=== PATIENT | female | born 1955 | race Caucasian/White ===

== ENCOUNTER 2018-08-04 02:07 | Outpatient (CLI) | payer BC, SELFPAY ==
[2018-08-04 07:51] LABS: Abs Immature Grans 0.02 k/cumm (0.0-0.09); Absolute Basophil Count 0.02 k/cumm (0.0-0.2); Absolute Eosinophil Count 0.12 k/cumm (0.0-0.7); Absolute Lymphocyte Count 2.13 k/cumm (1.2-3.4); Absolute Monocyte Count 0.47 k/cumm (0.11-0.7); Absolute Neutrophil Count 4.28 k/cumm (1.2-6.7); Basophils % 0.3; Eosinophils % 1.7; HCT 41.2 % (36.0-46.0); HGB 13.5 g/dL (12.0-15.5); Immature Grans % 0.3; Lymphocytes % 30.3; Mean Corp. HGB Concentration 32.8 g/dL (32.0-36.0); Mean Corpuscular Hemoglobin 29.1 pg (27.0-33.0); Mean Corpuscular Volume 88.8 fL (80-95); Mean Platelet Volume 10.1 fL (8.0-11.0); Monocytes % 6.7; Neutrophils % 60.7; Platelet Count 258 x1000/uL (130-400); RBC 4.64 m/cumm (4.00-5.20); RBC Distribution Width 12.9 % (11.7-14.6); White Blood Cell Count 7.04 k/cumm (4.4-10.8)
[2018-08-04 07:57] LABS: Bilirubin Negative (Negative); Blood Negative (Negative); Clarity Sl Cloudy; Glucose Negative (Negative); Ketones Negative (Negative); Leukocyte Esterase Moderate (Negative); Nitrite Negative (Negative); Urobilinogen 0.2 EU/dL (Up TO 0.2)
[2018-08-04 08:18] LABS: Bacteria Moderate HPF (Negative); C & S Indicated? No/Sq. Contamination; Epithelial Cells Many HPF (Negative); Mucus Moderate (Negative); WBC >50 HPF (0-5)
[2018-08-04 09:53] LABS: Hemoglobin A1C 5.9 % (4.5-6.2)
[2018-08-04 10:19] LABS: ALT 28 U/L (12-78); AST 19 U/L (15-37); Albumin 3.3 g/dL (3.4-5.0); Alkaline Phosphatase 93 U/L (46-116); Anion Gap 8.6 mmol/L (3-11); BUN 16 mg/dL (7-18); Bilirubin, Total 0.4 mg/dL (0.2-1.0); CO2 28.4 mmol/L (21.0-32.0); CREATININE 0.86 mg/dL (0.55-1.02); Calcium 9.3 mg/dL (8.5-10.1); Chloride 104 mmol/L (98-107); Cholesterol 214 mg/dL (50-200); Glucose 118 mg/dL (70-100); HDL Cholesterol 45 mg/dL (40-60); LDL CHOLESTEROL 153 mg/dL (<100); Potassium 4.3 mmol/L (3.5-5.1); Sodium 141 mmol/L (136-145); Total Protein 6.8 g/dL (6.4-8.2); Triglyceride 110 mg/dL (30-150)
== END 2018-08-04 02:27 ==
PROVIDERS: PCP Family Medicine; Visit Provider Family Medicine
DX: N39.41 Urge incontinence (principal); Z00.00 Encounter for general adult medical examination without abnormal findings; E78.5 Hyperlipidemia, unspecified; R73.9 Hyperglycemia, unspecified; Z83.3 Family history of diabetes mellitus
CPT/HCPCS: 36415; 80053; 80061; 83721; 81003; 81015; 83036; 85025

== ENCOUNTER 2018-08-11 00:25 | Outpatient (CLI) | payer BC, SELFPAY ==
--- NOTE | 2018-08-11 16:14 | DI.MAMMO_ITS ---
SYMPTOM/DIAGNOSIS: SCREENING, Z12.31 MAMMOGRAMS: Mammograms were interpreted according to the usual protocol including computer analysis with CAD system, tomosynthesis and C view imaging. Comparison with prior examinations. Breast density A. No masses or microcalcifications are seen. There is nothing to suggest malignancy. IMPRESSION: Negative mammogram. Routine screening is recommended. Category I. MQSA ASSESSMENT OF FINDINGS: Negative. Category 1. Patient will receive a letter notifying them of these results. BI-RAD category A. The breasts are almost entirely fatty.
== END 2018-08-11 00:45 ==
PROVIDERS: PCP Family Medicine; Visit Provider Family Medicine
DX: Z12.31 Encounter for screening mammogram for malignant neoplasm of breast (principal)
CPT/HCPCS: 77063; 77067

== ENCOUNTER 2019-02-25 01:14 | Outpatient (CLI) | payer OTHER, SELFPAY ==
[2019-02-25 08:16] LABS: Anion Gap 11.8 mmol/L (3-11); BUN 21 mg/dL (7-18); CO2 26.2 mmol/L (21.0-32.0); Calcium 8.9 mg/dL (8.5-10.1); Chloride 107 mmol/L (98-107); Cholesterol 210 mg/dL (50-200); Glucose 113 mg/dL (70-100); HDL Cholesterol 44 mg/dL (40-60); LDL CHOLESTEROL 145 mg/dL (<100); Potassium 4.1 mmol/L (3.5-5.1); Sodium 145 mmol/L (136-145); Triglyceride 94 mg/dL (30-150)
== END 2019-02-25 01:34 ==
PROVIDERS: PCP Family Medicine; Visit Provider Family Medicine
DX: R63.8 Other symptoms and signs concerning food and fluid intake (principal); E78.5 Hyperlipidemia, unspecified; R73.01 Impaired fasting glucose
CPT/HCPCS: 36415; 80048; 80061; 83721; 83036

== ENCOUNTER 2019-05-17 10:58 | Outpatient (CLI) | payer OTHER, SELFPAY ==
[2019-05-19 10:11] LABS: HBs Antibody, Quant >1000.0 mIU/mL; Hepatitis B Surface Ab Positive
== END 2019-05-17 11:18 ==
PROVIDERS: PCP Family Medicine; Visit Provider Nurse Practitioner Family
DX: Z01.84 Encounter for antibody response examination (principal); Z02.1 Encounter for pre-employment examination
CPT/HCPCS: 36415; 86706

== ENCOUNTER 2020-04-03 02:44 | Outpatient (CLI) | payer OTHER, SELFPAY ==
[2020-04-03 07:42] LABS: Hemoglobin A1C 6.1 % (3.8-5.6)
[2020-04-03 08:18] LABS: ALT 31 U/L (14-59); AST 19 U/L (15-37); Albumin 3.7 g/dL (3.4-5.0); Alkaline Phosphatase 88 U/L (46-116); Anion Gap 11.1 mmol/L (3-11); BUN 21 mg/dL (7-18); Bilirubin, Total 0.3 mg/dL (0.2-1.0); CO2 24.9 mmol/L (21.0-32.0); CREATININE 0.92 mg/dL (0.55-1.02); Calcium 9.4 mg/dL (8.5-10.1); Calculated LDL 148 mg/dL (<100); Chloride 105 mmol/L (98-107); Cholesterol 216 mg/dL (<200); Glucose 129 mg/dL (74-106); HDL Cholesterol 48 mg/dL (40-60); Potassium 4.3 mmol/L (3.5-5.1); Sodium 141 mmol/L (136-145); Total Protein 7.3 g/dL (6.4-8.2); Triglyceride 101 mg/dL (<150)
== END 2020-04-03 03:04 ==
PROVIDERS: PCP Family Medicine; Visit Provider Family Medicine
DX: I10 Essential (primary) hypertension (principal); E78.00 Pure hypercholesterolemia, unspecified; R73.01 Impaired fasting glucose
CPT/HCPCS: 36415; 80053; 80061; 83036

== ENCOUNTER 2020-08-01 09:14 | Outpatient (CLI) | payer OTHER, SELFPAY ==
--- NOTE | 2020-08-01 13:15 | DI.RAD_ITS ---
EXAM: XR KNEE LT 4V AP,LAT,ALTHEA,PAT CLINICAL HISTORY: fall, knee and reynaga pain TECHNIQUE: COMPARISON: CR XR TIB/FIB LT from 08/01/2020 FINDINGS: Four views of the knee and two views of the leg were obtained. There is plate and screw fixation of the distal fibula and screw and pin fixation of the medial malleolus. There are degenerative changes of all 3 joints of the knee with mild narrowing of cartilaginous joint spaces of the medial and lateral tibiofemoral joints and mild marginal osteophyte formation at multi ple sites. There is no evidence of acute fracture or dislocation of the knee or leg. IMPRESSION: RADIATION DOSE DELIVERED: Total DLP
--- NOTE | 2020-08-01 13:15 | DI.RAD_ITS ---
EXAM: XR WRIST RT COMPL NAVICULAR CLINICAL HISTORY: fall, wrist pain, pain also noted at snuffbox TECHNIQUE: COMPARISON: No exams were available for comparison FINDINGS: Five views were obtained. There is no evidence of an acute fracture or dislocation. IMPRESSION: RADIATION DOSE DELIVERED: Total DLP
== END 2020-08-01 09:34 ==
PROVIDERS: PCP Family Medicine; Visit Provider Physician Assistant
DX: M25.531 Pain in right wrist (principal); M17.12 Unilateral primary osteoarthritis, left knee; M79.662 Pain in left lower leg
CPT/HCPCS: 73110; 73564; 73590

== ENCOUNTER 2020-09-04 10:29 | Outpatient (REF) | payer OTHER, SELFPAY ==
[2020-09-04 13:07] LABS: ALT 32 U/L (14-59); Calculated LDL 135 mg/dL (<100); Cholesterol 219 mg/dL (<200); HDL Cholesterol 48 mg/dL (40-60); Triglyceride 180 mg/dL (<150)
[2020-09-04 13:15] LABS: Hemoglobin A1C 6.4 % (<5.7)
== END 2020-09-04 10:49 ==
LOC: LBN 10:29
PROVIDERS: PCP Family Medicine; Visit Provider Family Medicine
DX: E78.5 Hyperlipidemia, unspecified (principal); R73.9 Hyperglycemia, unspecified; Z83.3 Family history of diabetes mellitus
CPT/HCPCS: 80061; 83036; 84460

== ENCOUNTER 2020-10-08 01:56 | Outpatient (CLI) | payer OTHER, SELFPAY ==
--- NOTE | 2020-10-08 06:45 | DI.MAMMO_ITS ---
EXAM: MG MAMMO SCREENING CLINICAL HISTORY: screening,Z12.31. TECHNIQUE: Bilateral full field digital CC and MLO mammographic images were obtained with 3D tomosyn thesis and utilizing computer aided detection (CAD). COMPARISON: Prior mammograms dating back to 2011, the most recent being August 2018. FINDINGS: There are no CAD designations. There are no spiculated masses nor malignant appearing microcalcification groups in the left breast.. The right breast there is a noncalcified nodule located 5 centimetres in from the nipple approximat katherine 12 o'clock or 6 o'clock position. Possibly a lymph node 5 more evident on prior studies. Recomm end ultrasound. There are no malignant-appearing microcalcification groups in this region or elsewhe re in either breast. There is no significant architectural distortion nor skin thickening-retraction . IMPRESSION: No radiographic evidence of malignancy in the left breast.. There is a 5 millimeter by 4 millimeter noncalcified nodule the central right breast located 5 centim etres in from the nipple the CC view. Breast ultrasound is recommended BI-RADS Category 0 - Assessment Incomplete: Need additional imaging evaluation Breast Density - Category A - Almost entirely fatty Breast density Category C or D implies that the patient has dense breast tissue. Dense breast tissue can make it harder to find cancer on a mammogram. Dense breast tissue is also associated with an incr eased risk of breast cancer. This information about the result of the mammogram report was provided to the patient to raise their awareness. Use this report when you speak with the patient about their risks for breast cancer, which includes their family history. At that time, you may recommend additional screening tests (Ultrasoun d or MRI) as these tests may add significant information. A negative radiographic report should not delay biopsy if a dominant or clinically suspicious mass is present. Up to ten percent of cancers are not identified on mammography. A negative report may reinforce clinical impression. Adenosis and dense breasts may obscure an underlying neoplasm. False positive reports average 6 to 10%. Patient will receive a letter notifying them of these results.
== END 2020-10-08 02:16 ==
PROVIDERS: PCP Family Medicine; Visit Provider Family Medicine
DX: Z12.31 Encounter for screening mammogram for malignant neoplasm of breast (principal); R92.8 Other abnormal and inconclusive findings on diagnostic imaging of breast
CPT/HCPCS: 77063; 77067

== ENCOUNTER 2020-10-08 04:03 | Outpatient (CLI) | payer OTHER, SELFPAY ==
[2020-10-08 08:00] LABS: HCT 41.2 % (36.0-46.0); HGB 13.3 g/dL (11.2-15.7); MCH 28.3 pg (27.0-33.0); MCHC 32.3 % (32.0-36.0); MCV 87.7 fL (80-95); MPV 10.4 fL (8.0-11.0); Platelet Count 237 10^3/uL (130-400); RDW 12.2 % (11.7-14.6); RDW-SD 39.5 fL; WBC 6.88 10^3/uL (4.4-10.8)
[2020-10-08 08:49] LABS: Anion Gap 6.6 mmol/L (3-11); BUN 25 mg/dL (7-18); CO2 29.4 mmol/L (21.0-32.0); CREATININE 1.11 mg/dL (0.55-1.02); Calcium 9.6 mg/dL (8.5-10.1); Chloride 105 mmol/L (98-107); Estimated GFR 49.18 (mL/min/1.73m2); Glucose 130 mg/dL (74-106); Potassium 3.9 mmol/L (3.5-5.1); Sodium 141 mmol/L (136-145)
== END 2020-10-08 04:23 ==
PROVIDERS: PCP Family Medicine; Visit Provider Family Medicine
DX: I10 Essential (primary) hypertension (principal)
CPT/HCPCS: 36415; 80048; 85027

== ENCOUNTER 2020-10-12 04:24 | Outpatient (CLI) | payer OTHER, SELFPAY ==
--- NOTE | 2020-10-12 | DI.US_ITS ---
EXAM: US BREAST RT LIMITED CLINICAL HISTORY: F/U MAMMO,CENTRAL RT BREAST NODULE TECHNIQUE: Ultrasound right breast performed using standard protocol. COMPARISON: Comparison with prior mammograms. FINDINGS: No solid or cystic masses, hypoechoic foci, areas of abnormal shadowing, or areas of skin thickening. The nodular area of concern on the mammogram from 10/08/2020, has a similar appearance compared to the mammogram from 08/11/2018 and prior mammograms. IMPRESSION: No sonographically suspicious finding. A six-month follow-up right mammogram is recommended for re-evaluation. Findings were discussed with the patient on the date of the examination. BI-RADS Category 3 - 6 month - Probably Benign Finding: Recommend follow-up mammography in 6 months DATA REPOSITORY:
== END 2020-10-12 04:44 ==
PROVIDERS: PCP Family Medicine; Visit Provider Family Medicine
DX: N63.10 Unspecified lump in the right breast, unspecified quadrant (principal)
CPT/HCPCS: 76642

== ENCOUNTER 2020-12-07 03:22 | Outpatient (CLI) | payer OTHER, SELFPAY ==
[2020-12-07 07:57] LABS: Hemoglobin A1C 6.1 % (<5.7)
[2020-12-07 08:18] LABS: Anion Gap 9.4 mmol/L (3-11); BUN 23 mg/dL (7-18); CO2 30.6 mmol/L (21.0-32.0); CREATININE 0.9 mg/dL (0.55-1.02); Calcium 9.4 mg/dL (8.5-10.1); Chloride 105 mmol/L (98-107); Glucose 114 mg/dL (74-106); Sodium 145 mmol/L (136-145)
[2020-12-07 08:25] LABS: Calculated LDL 68 mg/dL (<100); Cholesterol 138 mg/dL (<200); HDL Cholesterol 48 mg/dL (40-60); Triglyceride 114 mg/dL (<150)
== END 2020-12-07 03:23 | disposition home or self-care (01) ==
LOC: LBO 03:23
PROVIDERS: PCP Family Medicine
DX: I10 Essential (primary) hypertension (principal); R73.9 Hyperglycemia, unspecified
CPT/HCPCS: 36415; 80048; 80061; 83036

== ENCOUNTER 2021-03-28 03:54 | Outpatient (CLI) | payer OTHER, SELFPAY ==
[2021-03-28 07:50] LABS: Hemoglobin A1C 6.1 % (<5.7)
== END 2021-03-28 03:55 | disposition home or self-care (01) ==
LOC: LBO 03:54
PROVIDERS: PCP Nurse Practitioner Family; Visit Provider Nurse Practitioner Family
DX: E11.69 Type 2 diabetes mellitus with other specified complication (principal); E66.9 Obesity, unspecified
CPT/HCPCS: 36415; 83036

== ENCOUNTER 2021-05-28 03:18 | Outpatient (CLI) | payer OTHER, SELFPAY ==
--- NOTE | 2021-05-28 14:52 | DI.MAMMO_ITS ---
Exam(s) MAMMO DIAGNOSTIC UNI EXAM: MAMMO DIAGNOSTIC UNI CLINICAL HISTORY: ABNL RT BREAST, F/U TO ABNL, R92.8. TECHNIQUE: Craniocaudal and mediolateral oblique Full Field Digital Mammography views of the right breast with Computer Aided Diagnosis followed by Tomosynthesis. COMPARISON: 2011 through 08 October 2020 FINDINGS: Mammography/Tomosynthesis: Masses/Architectural Distortion: Stable tiny nodule CC view central right breast. Microcalcifictions: No suspicious pleomorphic-type are seen. Skin Thickening/Nipple Retraction: None. IMPRESSION: 1. No evidence of malignancy is noted. 2. Unless there is more urgent need, follow-up screening mammography is recommended, as per [place] [employer] guidelines. BI-RADS Category 2 - Benign Findings Breast Density - Category A - Almost entirely fatty A negative radiographic report should not delay biopsy if a dominant or clinically suspicious mass is present. Up to ten percent of cancers are not identified on mammography. A negative report may reinforce clinical impression. Adenosis and dense breasts may obscure an underlying neoplasm. False positive reports average 6 to 10%. Patient will receive a letter notifying them of these results.
== END 2021-05-28 03:38 ==
PROVIDERS: PCP Nurse Practitioner Family; Visit Provider Family Medicine
DX: R92.8 Other abnormal and inconclusive findings on diagnostic imaging of breast (principal); Z09 Encounter for follow-up examination after completed treatment for conditions other than malignant neoplasm
CPT/HCPCS: 77061; 77065; G0279

== ENCOUNTER 2021-08-13 04:16 | Outpatient (CLI) | payer OTHER, SELFPAY ==
[2021-08-14 01:50] LABS: Anion Gap 6.9 mmol/L (3-11); BUN 19 mg/dL (7-18); CO2 32.1 mmol/L (21.0-32.0); Calcium 9.1 mg/dL (8.5-10.1); Chloride 107 mmol/L (98-107); Estimated GFR 55.47 (mL/min/1.73m2); Glucose 117 mg/dL (74-106); Potassium 3.8 mmol/L (3.5-5.1); Sodium 146 mmol/L (136-145)
== END 2021-08-13 04:17 | disposition home or self-care (01) ==
LOC: LBO 04:16
PROVIDERS: PCP Nurse Practitioner Family; Visit Provider Family Medicine
DX: I10 Essential (primary) hypertension (principal)
CPT/HCPCS: 36415; 80048

== ENCOUNTER 2021-10-30 14:02 | Outpatient (CLI) | payer OTHER, SELFPAY ==
--- NOTE | 2021-10-30 13:30 | DI.RAD_ITS ---
Exam(s) XR SHOULDER LT COMPLETE 2+V EXAM: XR SHOULDER LT COMPLETE 2+V CLINICAL HISTORY: left shoulder pain. TECHNIQUE: 2D digital imaging was performed. COMPARISON: No exams were available for comparison FINDINGS: No evidence of fracture or dislocation. There are advanced osteoarthritic degenerative changes inclu ding joint space narrowing and casarez osteophyte on the inferior articular surface of the humeral head . Subacromial space is not significantly diminished. No osseous lesions. Bone density normal. IMPRESSION: Lanced osteoarthritic degenerative changes of the glenohumeral joint DATA REPOSITORY: RADIATION DOSE DELIVERED:
== END 2021-10-30 14:03 | disposition home or self-care (01) ==
LOC: DIORS 14:02
PROVIDERS: PCP Nurse Practitioner Family; Referring Provider Nurse Practitioner Family; Visit Provider Student in an Organized Health Care Education/Training Program
DX: M25.512 Pain in left shoulder (principal); M19.012 Primary osteoarthritis, left shoulder
CPT/HCPCS: 73030

== ENCOUNTER 2021-12-05 03:31 | Outpatient (CLI) | payer OTHER, SELFPAY ==
--- NOTE | 2021-12-05 07:30 | DI.RAD_ITS ---
Exam(s) RF JOINT INJECTION FLUORO GUID EXAM: RF JOINT INJECTION FLUORO GUID CLINICAL HISTORY: L SHOULDER PAIN,FLUORO ASSISTED INJECTION,M19.012,PRIMARY OA TECHNIQUE: 2D and realtime digital imaging was performed. Fluoroscopy was provided for Dr. Beckham for guidance with performing shoulder injection. Single hard copy image. COMPARISON: CR XR SHOULDER LT COMPLETE 2+V from 10/30/2021 FINDINGS: A single hard copy image shows injection of contrast at the shoulder as well as severe degenerative c hanges of the glenohumeral joint. Please see procedure note for details. Fluoro time 11 seconds RADIATION DOSE DELIVERED: baldo Marcelino=0.7 mGy
[2021-12-05] MEDS: Bupivacaine 0.5% Pres-Free 10 ML VIAL 5 ML IJ (13:36)
[2021-12-05] MEDS: Omnipaque 300 MG/ML 10 ML BTL 3 ML IJ (13:37)
[2021-12-05] MEDS: methylPREDNISolone ACETATE 40 MG/ML VIAL IM (13:37)
--- NOTE | 2021-12-05 13:38 | W.PROCNOTE ---
Date of service: 12/05/21 Time of Service: 13:20 Procedure Note Date of procedure: 12/05/21 Procedure: Left Shoulder Injection Surgeon/Proceduralist/Physician: Chuckie Hernandez Procedure Diagnosis: Left Glenohumeral Arthritis Procedure Indications: Maria has had persistent pain of the LEFT shoulder. Noninvasive measures have been tried. To serve as both diagnostic and therapeutic, an injection under fluoroscopy was recommended. I had discussed the risks of the procedure and the patient elected to proceed. Procedure Description: Maria was greeted in the flouroscopy room. The correct side was identified and the consent was reviewed with the patient and signed. The patient was then placed in the supine position on the fluoroscopy table. The LEFT shoulder was then prepped with Chloraprep. The anterior injection starting point was identiifed by bony landmarks and fluoroscopy. The skin and soft tissue in the tract of the injection was anesthetized with 1% Lidocaine. A spinal needle was then inserted deep into the shoulder joint at the level of the recess between the glenoid and superior humeral head. A small amount of Omnipaque solution was injected to confirm intraarticular placement. Once confirmed, the shoulder was injected with 4cc of 0.5% Bupivicaine and 80mg of Depo-Medrol. A bandaid was placed on the injection site. The patient tolerated the procedure well and noted improvement in pre-injection pain.
== END 2021-12-05 03:51 ==
PROVIDERS: PCP Nurse Practitioner Family; Visit Provider Student in an Organized Health Care Education/Training Program
DX: M19.012 Primary osteoarthritis, left shoulder (principal)
CPT/HCPCS: 77002; J1030

== ENCOUNTER → 2022-03-06 01:19 | Outpatient (CLI) | payer OTHER, SELFPAY ==
--- NOTE | 2022-03-06 13:58 | W.PROCNOTE ---
Date of service: 03/06/22 Time of Service: 13:55 Procedure Note Date of procedure: 03/06/22 Procedure: Left Shoulder Injection Surgeon/Proceduralist/Physician: Chuckie Hernandez Procedure Diagnosis: Left Shoulder Injection Procedure Indications: Maria has had persistent pain of the LEFT shoulder. Noninvasive measures have been tried. To serve as both diagnostic and therapeutic, an injection under fluoroscopy was recommended. She had previous success with injection and thus a repeat was recommended. I had discussed the risks of the procedure and the patient elected to proceed. Procedure Description: Maria was greeted in the flouroscopy room. The correct side was identified and the consent was reviewed with the patient and signed. The patient was then placed in the supine position on the fluoroscopy table. The LEFT shoulder was then prepped with Chloraprep. The anterior injection starting point was identiifed by bony landmarks and fluoroscopy. The skin and soft tissue in the tract of the injection was anesthetized with 1% Lidocaine. A spinal needle was then inserted deep into the shoulder joint at the level of the recess between the glenoid and superior humeral head. A small amount of Omnipaque solution was injected to confirm intraarticular placement. Once confirmed, the shoulder was injected with 5cc of 0.5% Bupivicaine and 80mg of Depo-Medrol. A bandaid was placed on the injection site. The patient tolerated the procedure well .
--- NOTE | 2022-03-06 14:08 | DI.RAD_ITS ---
Exam(s) RF JOINT INJECTION FLUORO GUID EXAM: RF JOINT INJECTION FLUORO GUID CLINICAL HISTORY: L SHOULDER INJ UNDER FLUORO,primary oa,m19.012, pain TECHNIQUE: Fluoroscopy provided. Radiologist not present. CONTRAST MATERIAL: None COMPARISON: No exams were available for comparison FINDINGS: Fluoroscopy was provided for therapeutic left shoulder injection.. Submitted image(s) reveal needle placement at the superomedial aspect of the humeral head. Radiopaqu e contrast was injected into the joint space Please refer to the procedure report for complete details. Cumulative Dose: Ka,r=0.336 mGy IMPRESSION: RADIATION DOSE DELIVERED:
[2022-03-06] MEDS: Omnipaque 300 MG/ML 10 ML BTL IJ (14:10)
[2022-03-06] MEDS: Bupivacaine 0.5% Pres-Free 30 ML VIAL 5 ML IJ (14:11)
[2022-03-06] MEDS: methylPREDNISolone ACETATE 80 MG/ML VIAL IM (14:12)
== END ==
PROVIDERS: PCP Nurse Practitioner Family; Visit Provider Student in an Organized Health Care Education/Training Program
DX: M19.012 Primary osteoarthritis, left shoulder (principal)
CPT/HCPCS: 20610; 77002; J1040

== ENCOUNTER 2022-03-25 00:46 | Outpatient (CLI) | payer OTHER, SELFPAY ==
[2022-03-25 07:55] LABS: ALT 26 U/L (14-59); AST 14 U/L (15-37); Albumin 3.3 g/dL (3.4-5.0); Alkaline Phosphatase 84 U/L (46-116); Anion Gap 7.6 mmol/L (3-11); BUN 30 mg/dL (7-18); Bilirubin, Total 0.4 mg/dL (0.2-1.0); CO2 29.4 mmol/L (21.0-32.0); CREATININE 0.9 mg/dL (0.55-1.02); Calcium 9.2 mg/dL (8.5-10.1); Chloride 102 mmol/L (98-107); Glucose 160 mg/dL (74-106); Sodium 139 mmol/L (136-145); Total Protein 7.4 g/dL (6.4-8.2)
== END 2022-03-25 00:47 | disposition home or self-care (01) ==
LOC: LBO 00:46
PROVIDERS: PCP Nurse Practitioner Family; Visit Provider Nurse Practitioner Family
DX: I10 Essential (primary) hypertension (principal)
CPT/HCPCS: 36415; 80053

== ENCOUNTER → 2022-06-04 01:52 | Outpatient (CLI) | payer OTHER, SELFPAY ==
--- NOTE | 2022-06-04 07:45 | DI.MRI_ITS ---
Exam(s) MR UPPER JOINT LT WO EXAM: MR UPPER JOINT LT WO CLINICAL HISTORY: Surgery planning, lt rotator cuff tear, M75.102 TECHNIQUE: Multiplanar multisequence MRI of the left shoulder was performed. COMPARISON: CR XR SHOULDER LT COMPLETE 2+V from 10/30/2021 FINDINGS: MARROW:There is no evidence of fracture, Hill-Sachs deformity, nor ominous osseous lesions. GLENOHUMERAL JOINT: There is severe oryr-ut-ecaj osteoarthritis of the glenohumeral joint with subart icular degenerative cysts on both sides of the joint both at humeral head side and osseous glenoid si de as well as a prominent casarez-type osteophyte on the inferior articular aspect of the humeral head. There is moderate-sized glenohumeral joint effusion. There is synovial proliferation. There are f ew loose bodies evident in the joint space. There are no loose bodies in the biceps tendon sheath. ROTATOR CUFF MECHANISM: AC JOINT/ACROMIUM: There are difficult degenerative changes also evident in the AC joint with downgoi ng osteophytes on both sides the joint causing mild impingement. There is no evidence of os acromial e. Supraspinatus: Mild increased signal. No significant tear. There is no fluid in the subacromial-sub deltoid bursa. Infraspinatus: Intact. No evidence of tear nor muscle atrophy. Teres Minor: Intact. No evidence of tear nor muscle atrophy. Subscapularis/anterior cuff: There is 2.5 x 2.1 x 2.4 lesion intimately associated with the anterior aspect of the subscapularis,, exhibiting uniform fat signal on all sequences. There is also an 8 x 6 millimeter calcified loose body within the joint fluid anteriorly between the superior aspect of th e subscapularis and the base of the coracoid BICEPS TENDON: Normal position in the intertubercular groove. No evidence of tear. Fluid in the tendon sheath noted but no calcified body within the tendon sheath. LABRUM: Some signal abnormality in the superior labrum posterior to the biceps insertion. Possibly a n element of SLAP tear. Posterior labrum appears intact. No obvious tear of the anterior labrum. N o prominent anterior scapular periosteal stripping and no evidence of bony Bankart lesion. Inferior labrum is attenuated, most probably related to the large opposing casarez-type osteophyte on the inferi or articular surface of the humeral head. The inferior glenohumeral ligament is stretched over the p rominent casarez-type osteophyte on the inferior articular surface of humeral head. IMPRESSION: 1. There is severe osteoarthritis of the glenohumeral joint including eaej-lx-lohg narrowing, severe cartilage loss, degenerative subarticular cysts in both the humeral head and osseous glenoid, a large casarez-type osteophyte on the inferior articular surface of the humeral head, moderate size joint eff usion synovial proliferation and with a few loose intra-articular bodies evident. 2. No evidence of rotator cuff tear, despite moderate-advanced degenerative changes in the AC joint ( including downgoing osteophytes on both sides of the AC joint). 3. Some labral attenuation noted but no prominent labral tears. There is mild increased signal in th e superior labrum posterior to the biceps tendon attachment which may be an element of SLAP-type tear . 4. There is a fatty lesion measuring 2.5 x 2.1 x 2.4 cm intimately associated with the anterior-supe rior aspect of the subscapularis musculotendinous junction, in the subcoracoid recess. This exhibits uniform internal fat signal with no obvious nodularity. Probably represents form of muscle lipoma. DATA REPOSITORY:
== END ==
PROVIDERS: PCP Nurse Practitioner Family; Visit Provider Student in an Organized Health Care Education/Training Program
DX: M19.012 Primary osteoarthritis, left shoulder (principal)
CPT/HCPCS: 73221

== ENCOUNTER 2022-07-10 05:47 | Day surgery (SDC) | payer OTHER, SELFPAY ==
[2022-07-10] VITALS (12 sets, daily range): BP systolic 123–177; BP diastolic 63–97; PULSE 91–107; RESP 14–24; TEMP 36–37.1; O2SAT 92–96; BMI 47.1
--- NOTE | 2022-07-10 07:00 | DI.RAD_ITS ---
Exam(s) XR SHOULDER LT COMPLETE 2+V EXAM: XR SHOULDER LT COMPLETE 2+V CLINICAL HISTORY: Portable in PACU postop TECHNIQUE: COMPARISON: CR XR SHOULDER LT COMPLETE 2+V from 10/30/2021 FINDINGS: Three views were obtained. There is a reverse shoulder prosthesis position. The components appear w ell seated. No other significant bony abnormality seen. IMPRESSION: RADIATION DOSE DELIVERED: Total DLP
[2022-07-10] MEDS: Lactated Ringers 1,000 ML 30 ML IV (07:02)
--- NOTE | 2022-07-10 07:12 | W.ANESPRE ---
General Info Date of Service Date Performed: 07/10/22 Height: 5 ft 7 in Weight: 136.6 kg Body Mass Index (BMI): 47.1 Surgical Procedure: Operation Date: 07/10/22 07:40 Proposed Procedure Side Surgeon p Reverse Shoulder Total Arthroplasty,Contracture Release, Biceps Tenodesis, and any other Indicated Procedures Left Bay Marc MD Meds Allergies and Home Medications Allergies Allergy/AdvReac Type Severity Reaction Status Date / Time hydrochlorothiazide Allergy Severe ILLNESS, Verified 07/10/22 07:08 hives amlodipine Allergy Unknown HIVES Verified 07/10/22 06:13 Home Medication Medication Instructions Recorded red yeast rice 600 mg capsule 600 mg PO DAILY #90 caps 07/17/21 metoprolol succinate 200 mg 200 mg PO DAILY #90 tab-caps 07/31/21 tablet,extended release 24 hr spironolactone 25 mg tablet 12.5 mg PO DAILY #90 tabs 07/31/21 acetaminophen 325 mg capsule 325 mg PO ONCE PRN 10/30/21 lisinopril 40 mg tablet 40 mg PO DAILY #90 tab-caps 02/10/22 celecoxib 200 mg capsule 200 mg PO DAILY #90 caps 02/12/22 torsemide 10 mg tablet 10 mg PO .every 2 days #45 tabs 02/21/22 Current Visit Medications: Current Medications Generic Name Dose Route Start Last Admin Trade Name Freq PRN Reason Stop Dose Admin Ringer's Solution 1,000 mls @ 30 mls/hr 07/10/22 06:00 07/10/22 07:02 IV 08/08/22 23:59 30 mls/hr INFUSION AKBAR Administration Cefazolin Sodium 3,000 mg/ 100 mls @ 200 mls/hr 07/10/22 06:00 Sodium Chloride IVPB 07/10/22 16:00 PREOP AKBAR Tranexamic Acid 1,000 mg/ 60 mls @ 360 mls/hr 07/10/22 06:00 Sodium Chloride IVPB 07/10/22 16:00 PREOP AKBAR IV Miscellaneous Supplies 1 each 07/10/22 06:00 Iv Access IV 08/08/22 23:59 DIRECTED AKBAR Sodium Chloride 0 ml 07/10/22 06:00 Normal Saline Flush 10 Ml Syr IV 08/08/22 23:59 PRN PRN Sodium Chloride 0 ml 07/10/22 06:00 Normal Saline 10 Ml Vial IJ 08/08/22 23:59 DIRECTED PRN Sterile Water 0 ml 07/10/22 06:00 Water,Injection,Sterile 10 Ml Vial IJ 08/08/22 23:59 DIRECTED PRN PFSH Active Problems Active Problems: Problem Status Onset Code Allergic conjunctivitis and rhinitis 04/12/18 H10.10, J30.9 Anxiety F41.9 Depressive disorder F32.9 Increased BMI R63.8 Family history of diabetes mellitus in mother Z83.3 Hyperlipidemia E78.5 Urge incontinence of urine N39.41 Hyperglycemia R73.9 Family history of coronary artery disease in father Z82.49 IFG (impaired fasting glucose) R73.01 Low back pain M54.5 Ankle fracture S82.899A Left knee pain M25.562 HTN (hypertension) I10 Finger stiffness M25.649 Prediabetes R73.03 Right shoulder pain M25.511 Primary osteoarthritis, left shoulder M19.012 Contracture of left shoulder M24.512 Tendinitis of long head of biceps brachii of left shoulder M75.22 Medical History Medical History (Updated 07/10/22 @ 07:15 by Bay Marc MD) Anxiety Benign hypertension Contracture of left shoulder Depressive disorder Tendinitis of long head of biceps brachii of left shoulder Surgical History Surgical History (Updated 07/10/22 @ 06:13 by Sal[place] Wiley) ANKLE FX (~2005) pin and plate hardware in ankle/leg Excision, Lesion (11/20/16) sebaceous cyst Hx of tonsillectomy Tobacco Smoking/Tobacco Use Status: Never Passive smoking exposure: Yes Second hand exposure: Yes Alcohol Alcohol Intake: never Substance Use Substance use: Never Substance use type: does not use Vital Signs and Lab Results Vital Signs Most Recent Vital Signs in EMR: Most Recent Vital Signs Temp Pulse Resp BP Pulse Ox 36.6 C 94 H 16 155/89 H 96 07/10/22 06:18 07/10/22 06:18 07/10/22 06:18 07/10/22 06:18 07/10/22 06:18 Lab Results Blood Type / Crossmatch: No Data to Display Complete Blood Count: No Data to Display Complete Metabolic Panel: No Data to Display Liver Function Panel: No Data to Display Coagulation Panel: No Data to Display Cardiac Panel: No Data to Display Arterial Blood Gas: No Data to Display Venous Blood Gas: No Data to Display Pancreas Panel: No Data to Display Thyroid Panel: No Data to Display Infectious Disease: No Data to Display Blood Cultures: No Data to Display Toxicology Panel: No Data to Display Anesthesia Assessment and Plan Anesthesia History Personal History: No History of Anesthesia Complications Family History: No Family History of Anesthesia Complications Exercise Tolerance Exercise Tolerance: Metabolic Equivalents>4 Pertinent Negatives Pertinent Negatives: No Symptoms of GERD, No Major Cardiovascular Symptoms or Complaints and No Major Pulmonary Symptoms or Complaints Cardiac & Pulmonary Exam Cardiac Exam: Normal S1/S2 Heart Sounds Pulmonary Exam: Clear Bilateral Breath Sounds Implantable Cardiac Device Does patient have a Pacemaker or an ICD?: No Airway Exam Known Difficult Airway: No Mallampati Class: 2 Mouth Opening: Normal (> 3cm) Thyromental Distance: Greater than 3 cm Neck Range of Motion: Full ROM Neck Circumference: Normal Teeth Condition: Normal Dentition ASA Classification ASA Score: ASA 3 Emergency Case?: No NPO Status NPO Status: NPO Clears >2 hours, Solids >8 hours Anesthesia Plan Resuscitation Status: Full Code Anesthesia Technique: General Anesthesia Airway Planned: Endotracheal Tube Pain Management: Surgeon and patient request nerve block Monitors Used: Standard Monitors
[2022-07-10] MEDS: ceFAZolin 3,000 MG in Normal Saline 100 ML 200 MG IVPB (07:39)
--- NOTE | 2022-07-10 08:00 | ROE_ITS ---
Operative Note Operative Note DATE OF PROCEDURE: 07/10/22 PRE-OP DIAGNOSIS: Left: 1. End-stage glenohumeral arthritis 2. Long head of the biceps tendinopathy POST-OP DIAGNOSIS: same PROCEDURE: Left: 1. Reverse total shoulder arthroplasty, CPT # 15429 2. Open biceps tenodesis, CPT # 25589 The blood and plasma laboratory assistant was medically required as this procedure involves retraction, protection of neurovascular structures, and manipulation of multiple instruments and implants at the same time, which cannot be done without a skilled blood and plasma laboratory assistant. SURGEON: Bay Marc VETERINARY TECHNICIAN: Tennille Duvall ANESTHESIA TYPE: Local By Surgeon, General LMA/ETT and Primary Nerve Block Refer to Anesthesia Record ESTIMATED BLOOD LOSS: 100 COMPLICATIONS: None Patient was transported to: PACU Implants: [employer] modular glenoid system baseplate 24 mm 10 degree full wedge augment [employer] modular glenoid system central post 20 mm [employer] modular glenoid system peripheral locking screws 32 mm inferior, 28 mm superior, 20 mm posterior, 16 mm anterior [employer] modular glenoid system glenosphere 39+4 mm lateralized [employer] humeral stem 135 degrees size 6 [employer] suture cup size 39 posterior offset [employer] humeral insert size 39+6 mm Indications: Please see complete medical record for details. Findings: Significant long head biceps tenosynovitis, anterior capsular contracture, and glenohumeral cartilage loss; No significant tearing subscapularis or superior rotator cuff Procedure Description: In the operating room, general anesthesia was induced. The patient was positioned beachchair on the operating room table. All bony prominences were well-padded. Preoperative antibiotics were administered. The shoulder was prepped and draped in the usual sterile fashion for shoulder arthroplasty. The correct patient, procedure, and side of the procedure were all verified prior to incision. The deltopectoral approach was taken to the anterior shoulder. Care was taken to bluntly dissect the interval between the deltoid and pectoralis major muscles and to identify the cephalic vein within its fat stripe. The the vein was mobilized laterally. Subdeltoid space and conjoined tendon were freed of adhesions. The long head of the biceps tendon was identified just lateral to the lesser tuberosity. The uppermost margin of the pectoralis major tendon was released from the proximal humerus. The long head of the biceps tendon was tenodesed in situ using SutureTape in a rblhyz-qc-aiqwl fashion securing it superior margin the pectoralis major tendon. The biceps tendon was amputated and followed proximally to identify the rotator interval. A subscapularis peel was performed taking care to release the entire tendon in a full-thickness fashion from superior to inferior and lateral to medial while bringing the arm gradually into external rotation. Care was taken to avoid the axillary nerve by only working on the bone inferiorly and medially. The subscapularis was tagged using SutureTape in a Sivakumar-Raffi fashion and traction used confirm appropriate mobilization of the subscapularis tendon after gentle blunt dissection was used to free up the space anterior and posterior to it. The supraspinatus and infraspinatus were identified and preserved. Appropriate coagulation was achieved especially interiorly. The anatomic neck was cut using an oscillating saw with the humeral head bone brought back table in case there was a need for future bone grafting. The proximal humeral protection plate was used to provisionally confirm suture cup and glenosphere size. Attention was then turned to the glenoid and retractors were placed and a circumferential release performed using the long head of the biceps remnant to remove soft tissue about the glenoid rim. Care was taken inferiorly to work on bone only between 5 and 7:00 o'clock and bluntly elevate tissues inferiorly. The VIP guide was placed on the glenoid and used to confirm placement and trajectory of the central guidepin. The guidepin was inserted and advanced just through the far cortex ensuring adequate central fixation length. Depth gauge was used to confirm length. The defect die drawing checker and glenosphere sizer were used to confirm positioning and glenosphere size. The eccentric reamer was used maintaining appropriate orientation over the guidewire. The central screw drill was then used over the guidewire and guidewire removed. The baseplate was fully impacted maintaining appropriate augment orientation onto the glenoid surface. The locking guide was then used to drill and place appropriately lengthed inferior, superior, anterior, and posterior screws. The zqje-xnh-wmqgfoqqo reamer was used to confirm adequate peripheral reaming. The glenosphere was applied with the clinical nurse reviewer and then impacted to engage the Dyer taper. It was then locked with appropriate countersinking of the setscrew. The glenosphere was inspected and found to have good fit, appropriate positioning, and no soft tissue or bony impingement. Attention was then turned back to the proximal humerus, which was delivered from the wound and maintained in external rotation. Reamers were started appropriately posterior to the bicipital groove taking care to maintain in line approach with the humeral canal. Sequential reaming was done from size 5 up to size 7, which was only partially used. Next, the broaches were sequentially used to open the proximal humerus starting with a size 5 and going up to size 6 and sunk to the appropriate depth while maintaining approximately 30 degrees retroversion. There was good metaphyseal fit and rotational control of the proximal humerus with this size. The posterior offset guide was used to ream for the suture cup. The humeral trial cup was connected. Trialing was commenced with +3 mm liner. The shoulder was reduced and taken through range of motion. Trial components were built up to +6 mm liner to achieve good stability and appropriate tension on the deltoid and conjoined tension. The trial components were removed from the proximal humerus. The wound was copiously irrigated with normal saline. A 2 mm drill was used to drill 2 drill holes in the bicipital groove for later subscapularis repair. The the proximal humeral stem and suture cup were assembled and brought over the proximal humerus. Suture tapes were placed superiorly inferiorly at the medial and la teral aspect of the suture cup. The lateral tapes were brought out the drill holes. A small amount of vancomycin powder was distributed in the proximal humerus. The humeral component and suture cup were impacted into place. The trial liner was added and the shoulder was reduced and range of motion, stability, and tension confirmed to be appropriate. The final liner was then connected, and range of motion, stability, and tension confirmed. The shoulder was copiously irrigated with Betadine and normal saline. Vancomycin powder was distributed deeply about the shoulder and through subcutan eous tissues. The arm was placed in about 30 degrees of external rotation. The subscapularis was reduced and repaired using the dylan silverman StmanjuTakwan in a speed bridge type configuration. The arm was taken into more external rotation without any displacement of the subscapularis repair. The lateral rotator interval and the subscapularis to anterior supraspinatus was closed using a aeayai-ug-jofzk suture tape stitch. The deltopectoral interval was well approximated and secured with a single 2-0 Monocryl buried vfcpda-sf-fqyho stitch. Subcutaneous tissue was irrigated then closed using 2-0 Monocryl in a buried interrupted fashion. Skin was closed using 3-0 Monocryl in a buried subcuticular fashion. Skin glue was applied to the incision. A silver impregnated bandage was placed over the incision. The extremity was placed into a shoulder immobilizer. The patient awoke from anesthesia without complication and was taken to the recovery room in stable condition.
[2022-07-10] MEDS: Bupivacaine 0.5% Pres-Free W/EPI 30 ML VIAL (08:51)
--- NOTE | 2022-07-10 10:23 | W.ANESNERVE ---
Nerve Block Single Injection Procedure Date and Time Date Performed: 07/10/22 Procedure Start: 07:28 Location Where Procedure Performed Procedure Location: Day Surgery Unit Reason Performed: Postoperative Analgesia Requesting Provider: Bay Marc Timeout Performed Timeout Performed: Yes Monitoring Used ECG, Blood Pressure, SpO2 and See EMR for corresponding vital signs Sterility Sterility: Hand Hygiene, Surgical Cap, Surgical Mask, Sterile Gloves and Chlorhexidine Sedation Given During Procedure Sedation Given (Indicate Dose Given): Versed IV Dose:: 1mg Patient Mental Status Patient Mental Status: Awake Nerve Block 1st Nerve Block: Laterality: Left Block Type: Interscalene Needle / Catheter Used: 100mm SonoPlex II Local Anesthetic Bolus (Indicate Dose Given): Lidocaine used for local infiltration of skin, Injected in 3-5ml increments after negative blood aspiration, Bupivacaine 0.5% Dose:: 10ml and Exparel Dose:: 10ml Additives (Indicate Dose Given): None Ultrasound: Sterile probe cover and gel used Ultrasound Image Saved?: Yes Nerve Stimulator: Not Used Paresthesia: None Procedure Tolerated: No Complications and Patient tolerated well Procedure Outcome: Successful Procedure Comment: Good view, ended up beign plexus between supra and interscalene view. Performed By: Edwin Dockery
[2022-07-10] MEDS: ceFAZolin 2 GM/50 ML BAG 200 GM (10:42)
--- NOTE | 2022-07-10 11:37 | W.PM.DSUDISC ---
Discharge Plan Disposition Patient Disposition: HOME Condition: Stable Discharge Details Reason For Visit: Left shoulder surgery Attending Provider: Bay Marc Primary Care Provider: Arley Figueroa Home Meds and New Rx's Prescriptions: New naproxen 250 mg tablet 250 - 500 mg PO BID PRNQty: 40 0RF Rx Instructions: take with a meal aspirin 81 mg tablet,delayed release (DR/EC) 81 mg PO DAILY 14 Days Qty: 14 0RF oxycodone 5 mg tablet 5 - 10 mg PO Q4H MDD 30 mg PRN (Reason: moderate to severe pain) Qty: 18 0RF Continued Engerix-B (PF) 20 mcg/mL suspension 1 ml IM ONCE Qty: 1 0RF red yeast rice 600 mg capsule 600 mg PO DAILY Qty: 90 4RF Rx Instructions: give with meal/snack metoprolol succinate 200 mg tablet extended release 24 hr 200 mg PO DAILY Qty: 90 4RF spironolactone 25 mg tablet 12.5 mg PO DAILY Qty: 90 3RF acetaminophen 325 mg capsule 325 mg PO ONCE PRN celecoxib 200 mg capsule 200 mg PO DAILY Qty: 90 3RF lisinopril 40 mg tablet 40 mg PO DAILY Qty: 90 3RF torsemide 10 mg tablet 10 mg PO .every 2 days Qty: 45 2RF Discharge Instructions Additional Instructions: Surgery: Left reverse total shoulder arthroplasty (subscap repair, rotator cuff preserved) with biceps tenodesis Activity: Do not lift anything heavier than a coffee. You should keep your arm at your side in a neutral position at all times except for gentle range of motion exercises, physical therapy, and essential activities. You should use the sling whenever you are out of the house. You may have to adjust the abduction pillow or remove it for comfort. At home it is best to remove the sling and rest the arm on a pillow at your side or support the operative side with your other hand. A physical therapy prescription will be sent electronically to start in 2-3 weeks. Reverse TSA Protocol: Postoperative Weeks 0-6 ?Immobilization: Sling may be removed for therapeutic exercises, resting in bed or chair, and bathing ?Motion exercises: Pendulum exercises, elbow range- of-motion exercises, wrist hvkin-gd-vewwpt exercises, and junior accounting clerk strengthening ?Restrictions: No active internal rotation or backwards extension Postoperative Weeks 6-12 ?Immobilization: Sling discontinued ?Motion exercises: Shoulder passive range of motion, advancing to active-assisted range of motion, and finally active range of motion with a goal of forward flexion to 90? and external rotation of 20? ?Strengthening exercises: Light, resisted forward flexion, external rotation, and abduction limited to isometric exercises and therapy bands with concentric motions only. Continue junior accounting clerk strengthening ?Restrictions: No resisted internal rotation or backwards extension. No scapular retraction exercises with therapy bands Postoperative Months 3-12 ?Motion exercises: Increase lkdrl-dw-qpjuxz exercises to achieve full motion, with passive stretching at end ranges ?Strengthening: Begin resisted, internal rotation and backwards extension initially with isometric exercises advancing to light therapy bands and then weights. Advance other shoulder strengthening exercises to include the rotator cuff, deltoid, and scapular stabilizers. Advance to functional strengthening, including plyometric exercises and core strengthening. Prescriptions: Aspirin 81 mg take 1 daily to prevent a blood clot for 2 weeks Naproxen 250 mg take 1-2 every 12 hours with a meal as needed for moderate pain (do not use at same time as Celebrex) Oxycodone 5 mg take 1-2 every 4-6 hours as needed for severe pain You may use bvve-rmg-pklbhcq Tylenol (acetaminophen) as needed for mild pain. These pain medications may be taken all at once or in different combinations as needed. Also, recommend Colace (docusate) as a stool softener as surgery and pain medicine cause constipation. You may try qvgs-jjf-pdwnxbc diphenhydramine (Benadryl) 25-50 mg nightly as a sleep aid Dressings: Leave dressing in place until follow-up. Keep clean and dry at all times. No showers please. Follow-up: 10-[address] Marc You may take off the leg compression stockings this evening at home. You may also leave them on a few days longer if you have a history of leg swelling or edema. Please call the office during business hours with any questions or concerns. Let us know right away if you develop any redness, drainage, fevers, chest pain, or trouble breathing. Do not drink alcohol or drive for at least 24 hours after anesthesia. Discharge Orders Discharge Orders: Discharge Order (Routine); Ordered 07/10/22 Ordered By: Bay Marc DS: Diagnosis Discharge Diagnosis (1) Primary osteoarthritis, left shoulder: Status: Chronic
[2022-07-10] MEDS: Normal Saline 10 ML VIAL IJ (12:27)
[2022-07-10] MEDS: HYDROmorphone 2 MG/ML SYR IVP (12:27)
--- NOTE | 2022-07-10 12:39 | W.ANESPOSTOP ---
Postoperative Evaluation Date, Time and Location Date Performed: 07/10/22 Time Performed: 12:39 Patient Location: PACU Vital Signs Most Recent Imported Vital Signs: Most Recent Vital Signs Temp Pulse Resp BP Pulse Ox 36 C L 97 H 24 133/72 95 07/10/22 12:18 07/10/22 12:18 07/10/22 12:18 07/10/22 12:18 07/10/22 12:18 Pain Score Most Recent Pain Score: Most Recent Pain Score Pain Level 4 07/10/22 1239 Assessment Mental Status: Awake (Alert & Oriented to Patient Baseline) Airway and Respiratory Function: Patent airway with normal (patient baseline) respiratory exam Cardiovascular Function: Hemodynamically Stable Hydration Status: Adequately Hydrated Nausea & Vomiting: No Nausea or Vomiting Pain: Pain is tolerable per patient Peripheral Nerve Block: Regional nerve block not resolved at time of post operative discharge
[2022-07-10] MEDS: ceFAZolin 1 GM/50 ML BAG IVPB (13:29)
[2022-07-10] MEDS: oxyCODONE 5 MG TAB PO (13:44)
[2022-07-10] MEDS: Ketorolac 15 MG/ML VIAL IVP (14:28)
== END 2022-07-10 15:10 | disposition home or self-care (01) ==
PROVIDERS: PCP Nurse Practitioner Family; Visit Provider Student in an Organized Health Care Education/Training Program
PROC: (CPT 23472; principal; 2022-07-10 07:30)
DX: M19.012 Primary osteoarthritis, left shoulder (principal); M75.22 Bicipital tendinitis, left shoulder; I10 Essential (primary) hypertension; E78.5 Hyperlipidemia, unspecified; R73.03 Prediabetes
CPT/HCPCS: 23472; 23430; 76942; 73030; C1781; J0690; J1100; J1170; J1885; J2250; J2370; J2405; J2704

== ENCOUNTER 2022-07-22 13:06 | Outpatient (CLI) | payer OTHER, SELFPAY ==
--- NOTE | 2022-07-22 13:00 | DI.RAD_ITS ---
Exam(s) XR SHOULDER LT COMPLETE 2+V EXAM: XR SHOULDER LT COMPLETE 2+V CLINICAL HISTORY: LEFT SHOULDER F/U. TECHNIQUE: 2D digital imaging was performed. Three images were obtained. AP and Y views were obtain ed. COMPARISON: CR XR SHOULDER LT COMPLETE 2+V from 07/10/2022 FINDINGS: BONES: There are stable post operative changes present. No fracture or dislocation. JOINTS: The orthopedic hardware is in good position. Degenerative changes are seen at the acromiocla vicular joint. SOFT TISSUE: Normal. IMPRESSION: Stable postoperative changes. DATA REPOSITORY: RADIATION DOSE DELIVERED:
== END 2022-07-22 13:07 | disposition home or self-care (01) ==
LOC: DIORS 13:06
PROVIDERS: PCP Nurse Practitioner Family; Referring Provider Nurse Practitioner Family; Visit Provider Student in an Organized Health Care Education/Training Program
DX: M75.22 Bicipital tendinitis, left shoulder (principal); Z98.890 Other specified postprocedural states
CPT/HCPCS: 73030

== ENCOUNTER 2022-09-02 13:09 | Outpatient (CLI) | payer OTHER, SELFPAY ==
--- NOTE | 2022-09-02 13:00 | DI.RAD_ITS ---
Exam(s) XR SHOULDER LT COMPLETE 2+V EXAM: XR SHOULDER LT COMPLETE 2+V CLINICAL HISTORY: f/u post surgery. TECHNIQUE: 2D digital imaging was performed. Two images were obtained. AP and Y views were obtained . COMPARISON: CR XR SHOULDER LT COMPLETE 2+V from 07/22/2022 FINDINGS: BONES: There are stable post operative changes present. No fracture or dislocation. JOINTS: The orthopedic hardware is in good position. No evidence of hardware loosening. Degenerativ e changes are seen at the acromioclavicular joint. SOFT TISSUE: Normal. IMPRESSION: Stable postoperative changes. DATA REPOSITORY: RADIATION DOSE DELIVERED:
== END 2022-09-02 13:10 | disposition home or self-care (01) ==
LOC: DIORS 13:09
PROVIDERS: PCP Nurse Practitioner Family; Referring Provider Nurse Practitioner Family; Visit Provider Student in an Organized Health Care Education/Training Program
DX: M19.012 Primary osteoarthritis, left shoulder (principal)
CPT/HCPCS: 73030

== ENCOUNTER 2022-09-28 19:09 | Inpatient (IN) | payer OTHER, SELFPAY ==
[2022-09-28] VITALS (28 sets, daily range): BP systolic 115–131; BP diastolic 83–88; PULSE 100–137; RESP 18–33; O2SAT 82–97
--- NOTE | 2022-09-28 19:39 | W.ED.GENAD ---
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 Clinical Impression: Pulmonary embolism, Thickened endometrium, Abnormal vaginal bleeding Primary Care Provider: Arley Figueroa ED Provider: Jayy Farias Home Meds and New Rx's Prescriptions: No Action Engerix-B (PF) 20 mcg/mL suspension 1 ml IM ONCE Qty: 1 0RF red yeast rice 600 mg capsule 600 mg PO DAILY Qty: 90 4RF Rx Instructions: give with meal/snack prednisone 20 mg tablet 40 mg PO DAILY Qty: 10 0RF metoprolol succinate 200 mg tablet extended release 24 hr 200 mg PO DAILY Qty: 90 4RF spironolactone 25 mg tablet 12.5 mg PO DAILY Qty: 90 3RF acetaminophen 325 mg capsule 325 mg PO ONCE PRN lisinopril 40 mg tablet 40 mg PO DAILY Qty: 90 3RF torsemide 10 mg tablet 10 mg PO .every 2 days Qty: 45 2RF Medical Decision Making <Chiquita Miguel DO - Last Filed: 09/28/22 20:10> 67-year-old female with a history of obesity, hypertension, hyperlipidemia, prediabetes, anxiety, depression presents to the ED w/ a c/o dry cough and shortness of breath for the past week and lower abdominal pain and vaginal bleeding since this morning. Heart rate 120s. Respiration 26. Normal oxygen saturation at 97% on room air. Blood pressure 131/88. Patient appears tachypneic while speaking. Her lung sounds are clear throughout. Normal oropharynx. Her abdomen is obese and minimally tender in lower quadrants. Pelvic exam notes minimal blood within vaginal vault and mild bleeding noted from cervical os but no heavy vaginal bleeding or clots noted. No adnexal mass or cervical motion tenderness. Differential diagnosis includes acute anemia, PE, pneumonia, acute lower abdominal abnormality. We will place an IV, bolus IV fluids, screening labs, Fluvid, urinalysis, CT chest abdomen pelvis and give a dose of IV Tylenol. Number Case endorsed to Dr. Farias to follow-up on labs and imaging and final disposition Medical Records Medical records reviewed: Yes I reviewed the patient's medical records. <Jayy Farias DO - Last Filed: 09/28/22 23:07> 67-year-old female with a history of obesity, hypertension, hyperlipidemia, prediabetes, anxiety, depression presents to the ED w/ a c/o dry cough and shortness of breath for the past week and lower abdominal pain and vaginal bleeding since this morning. Heart rate 120s. Respiration 26. Normal oxygen saturation at 97% on room air. Blood pressure 131/88. Patient appears tachypneic while speaking. Her lung sounds are clear throughout. Normal oropharynx. Her abdomen is obese and minimally tender in lower quadrants. Pelvic exam notes minimal blood within vaginal vault and mild bleeding noted from cervical os but no heavy vaginal bleeding or clots noted. No adnexal mass or cervical motion tenderness. Differential diagnosis includes acute anemia, PE, pneumonia, acute lower abdominal abnormality. We will place an IV, bolus IV fluids, screening labs, Fluvid, urinalysis, CT chest abdomen pelvis and give a dose of IV Tylenol. Number Case endorsed to Dr. Farias to follow-up on labs and imaging and final disposition Dr. Farias's documentation 10:53 PM Patient was signed out to me by my colleague Dr. Chiquita Miguel. Please refer to her HPI, physical exam, assessment and plan. At time of signout we are awaiting imaging and work-up. Laboratory work-up demonstrates elevated white count at 20, but no bandemia. Renal function slightly elevated but stable. Hemoglobin and platelets stable. Troponin normal. EKG shows no evidence of STEMI. Urinalysis negative for infection. COVID/flu/RSV test negative. CT scan shows notable evidence of multiple pulmonary emboli, as well as a thickened endometrium in the uterus. Patient does admit to having a total left shoulder repair in July, as well as a few episodes of illness of runny nose and congestion over the last 6 weeks. I wonder if these were potential contributing factors in conjunction to the thickened endometrium which could represent endometrial cancer. Bleeding is stable, hemoglobin stable, hemodynamics are stable, with the patient's notable PEs I do feel that heparinization is indicated at this time. With no evidence of hemodynamic instability, I do not see an indication for immediate TNKase/tPA, additionally she has had the symptoms for the last 2 or 3 weeks, and has demonstrated stability in that regard. I did contact obstetrics and discussed the case with Cathy Chavira. She does recommend 5 mg of Aygestin which we will start here. She recommends this twice daily. She will see the patient in the morning. I discussed the case with hospitalist Dr. Pearson, he agrees with the assessment and plan. I have extensively reviewed the treatment plan with the patient. I have addressed all patient concerns at this time. I have also discussed the plan with the admitting physician and they agree with the current assessment and plan and have agreed to assume responsibility for the patient. All parties demonstrate verbal understanding and agreement with our assessment and plan at this time. The documentation in this chart was dictated using [employer] dictation software. Please excuse any dictation errors. FINDINGS: VASCULATURE: Pulmonary arteries: Focal areas of decreased density / intraluminal filling defects are present within the pulmonary arterial system bilaterally consistent with pulmonary emboli. No saddle embolus Aorta: Normal caliber thoracic and abdominal aorta without aneurysm or dissection. Celiac trunk and mesenteric arteries: No occlusion or significant stenosis. Renal arteries: No occlusion or significant stenosis. CHEST: Lungs: No alveolar or ground glass infiltrate. 5.5 mm nodule inferolateral right lung (image 352, series 7) Pleural spaces: No pleural fluid collection. No pneumothorax. Heart: Associated right ventricular strain (RV/LV ratio = 1.6). No pericardial effusion. ABDOMEN AND PELVIS: Liver: No mass. Gallbladder and bile ducts: Unremarkable. No calcified stones. No ductal dilation. Pancreas: Pancreatic fatty infiltration. No pancreatic ductal dilatation. Spleen: Unremarkable. No splenomegaly. Adrenal glands: Normal right adrenal gland. Approximate 2.5 x 2.6 cm mildly inhomogeneous left adrenal nodule (46-58 HU). Non-emergent adrenal CT is recommended. (Reference: [facility]). Kidneys and ureters: No hydronephrosis. No calcified renal or ureteral stones. No perinephric stranding or perinephric fluid. Approximate 4.4 x 4.0 cm complex right renal cyst (22-30 HU). Stomach and bowel: No generalized ileus or bowel obstruction. Scattered colon diverticuli without evidence of diverticulitis. Intraperitoneal space: No free air. No significant fluid collection. Reproductive: Distended endometrial cavity measuring 3.5 cm transversely (30 HU) - possible pyometra or hematometra. Endometrial mass cannot be excluded. Lymph nodes: No enlarged lymph nodes. Bones/joints: Spinal degenerative changes. Soft tissues: Unremarkable. IMPRESSION: 1. CT examination POSITIVE for bilateral acute pulmonary embolism. 2. No saddle embolus. 3. Associated right ventricular strain (RV/LV ratio = 1.6). 4. Normal caliber thoracic and abdominal aorta without aneurysm or dissection. 5. No pulmonary infiltrate. 6. Approximate 2.5 x 2.6 cm mildly inhomogeneous left adrenal nodule (46-58 HU). Non-emergent adrenal CT is recommended. (Reference: [facility]). 7. Approximate 4.4 x 4.0 cm complex right renal cyst (22-30 HU). 8. Distended endometrial cavity measuring 3.5 cm transversely (30 HU) - possible pyometra or hematometra. Endometrial mass cannot be excluded. 9. Scattered colon diverticuli without evidence of diverticulitis HPI <Chiquita Miguel DO - Last Filed: 09/28/22 20:10> General Mode of arrival: ambulatory. Date/Time Provider Initiated Documentation: 09/28/22 19:11. Limitations to Documentation: no limitations. Information obtained by: patient. HPI Narrative: Pt is a 67yo F with a history of obesity, hypertension, hyperlipidemia, prediabetes, anxiety, depression who presents to the ED with a complaint of dry cough for the past 2 weeks, shortness of breath, worse with exertion for the past week, and vaginal bleeding and lower abdominal pain since 3 AM this morning. Patient states she saw her PCP for cough and shortness of breath recently and was told she likely had a viral illness and was placed on 5 days of steroids which she finished yesterday without significant relief. She states she was initially complaining of productive cough but states is now been mainly dry. She states today she has had to change 3 pads due to vaginal bleeding but states these pads were not saturated. She describes the abdominal pain as intermittent and aching across the lower quadrants. She states she took 2 tabs of extra strength Tylenol 4 hours ago and naproxen earlier today without significant relief. She states her last bowel movement was today and within normal limits. She denies any fever, sore throat, chest pain, urinary symptoms or diarrhea. Related Data Home Medications Medication Instructions Recorded Confirmed red yeast rice 600 mg capsule 600 mg PO DAILY #90 caps 07/17/21 09/25/22 metoprolol succinate 200 mg 200 mg PO DAILY #90 tab-caps 07/31/21 09/28/22 tablet,extended release 24 hr spironolactone 25 mg tablet 12.5 mg PO DAILY #90 tabs 07/31/21 09/28/22 acetaminophen 325 mg capsule 325 mg PO ONCE PRN 10/30/21 09/25/22 lisinopril 40 mg tablet 40 mg PO DAILY #90 tab-caps 02/10/22 09/28/22 torsemide 10 mg tablet 10 mg PO .every 2 days #45 tabs 02/21/22 09/28/22 prednisone 20 mg tablet 40 mg PO DAILY #10 tabs 09/23/22 09/25/22 Previous Rx's Medication Instructions Recorded red yeast rice 600 mg capsule 600 mg PO DAILY #90 caps 07/17/21 metoprolol succinate 200 mg 200 mg PO DAILY #90 tab-caps 07/31/21 tablet,extended release 24 hr spironolactone 25 mg tablet 12.5 mg PO DAILY #90 tabs 07/31/21 lisinopril 40 mg tablet 40 mg PO DAILY #90 tab-caps 02/10/22 torsemide 10 mg tablet 10 mg PO .every 2 days #45 tabs 02/21/22 prednisone 20 mg tablet 40 mg PO DAILY #10 tabs 09/23/22 Allergies Allergy/AdvReac Type Severity Reaction Status Date / Time hydrochlorothiazide Allergy Severe ILLNESS, Verified 09/28/22 19:33 hives amlodipine Allergy Unknown HIVES Verified 09/28/22 19:33 General 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: 3 Review of Systems <DO Mando Coronel Last Filed: 09/28/22 20:10> All systems reviewed & are unremarkable except as noted in HPI and below Constitutional Constitutional: Reports as per HPI, Denies chills and Denies fever(s) Eyes Eyes: Denies blurry vision ENT Ears, Nose, Mouth, and Throat: Denies dizziness, Denies sore throat and Denies throat swelling Cardiovascular Cardiovascular: Denies chest pain and Reports dyspnea Respiratory Respiratory: Reports cough and Reports dyspnea Gastrointestinal Gastrointestinal: Denies abdominal pain, Denies diarrhea and Denies vomiting Genitourinary Genitourinary: Denies hematuria and Denies dysuria Comments: vaginal bleeding Musculoskeletal Musculoskeletal: Denies back pain and Denies numbness Integumentary/Breasts Skin/Breast: Denies lesions and Denies rash Neurologic Neurologic: Denies dizziness, Denies localized weakness and Denies numbness Allergic/Immunologic Allergic/Immunologic: Denies throat swelling PFSH <Chiquita Miguel DO - Last Filed: 09/28/22 20:10> All Active Problems (Updated 09/28/22 @ 23:07 by Jayy Farias DO) Pulmonary embolism (Chronic) Thickened endometrium (Acute) Abnormal vaginal bleeding (Acute) Allergic conjunctivitis and rhinitis (Chronic 04/12/18) This was caused by birds and once rid of them, she has no symptoms. Anxiety (Acute) Depressive disorder (Acute) Increased BMI (Acute) Family history of diabetes mellitus in mother (Chronic) Hyperlipidemia (Chronic) Urge incontinence of urine (Chronic) Hyperglycemia (Chronic) Family history of coronary artery disease in father (Chronic) IFG (impaired fasting glucose) (Chronic) Low back pain (Acute) Ankle fracture (Acute) Left knee pain (Acute) HTN (hypertension) (Chronic) Finger stiffness (Acute) Prediabetes (Acute) Right shoulder pain (Acute) Primary osteoarthritis, left shoulder (Chronic) Intra-articular injection: 03/06/2022; 12/05/2021 Medical History (Updated 09/28/22 @ 23:07 by Jayy Farias DO) Anxiety Benign hypertension Contracture of left shoulder Depressive disorder Tendinitis of long head of biceps brachii of left shoulder Surgical History (Updated 07/10/22 @ 06:13 by Salinas Wiley) ANKLE FX (~2005) pin and plate hardware in ankle/leg Excision, Lesion (11/20/16) sebaceous cyst Hx of tonsillectomy Family History Mother , age 94 Essential hypertension Heart disease Hyperlipidemia Stroke Father , age 63 Essential hypertension Heart disease Hyperlipidemia Stroke Lung cancer Throat cancer Sister Diabetes Essential hypertension Brother Essential hypertension Asthma Maternal Grandfather , age 42 Essential hypertension Heart disease Angela Gehrigs disease Paternal Grandfather , in his 60s No problems noted. Maternal Grandmother , Approx age 62-65 Heart disease Stroke Paternal Grandmother , In her 60s Accident - struck by car when walking No problems noted. Son No problems noted. Social History (Updated 08/14/21 @ 18:19 by Bekah Sky) Smoking/Tobacco Use Status: Never Second Hand Exposure: Yes Smoking risk assessment performed?: Yes Alcohol Intake: never Drug use: Never Substance use type: does not use Caregiver/Support person: No Housing: house Communication Needs: None Do you need help understanding health information?: Never Pets and animals: Yes Pets and animals: cat(s), dog(s) and fish Sexually active: No Do you think of yourself as: straight/heterosexual Current gender identity: female What is your relationship status?: How often do you talk on the phone with friends or family?: three or more times per week How often do you get together with friends or relatives?: once per week How often do you attend taoist or pentecostal services?: decline to answer Do you belong to any clubs or organized social groups?: yes Panel score (0-1 are the most socially isolated patients): 2 What type of physical activity do you participate in: walking Duration: < 15 minutes/day Frequency: decline to answer Jenni/Gnosticist: Sikhism Special jenni needs: No Seatbelt use: always Helmet use: Yes Helmet use: always Drive intox or ride w/intox flatbed company driver: No Do you feel safe at home: Yes Do you feel safe in your relationship?: Yes Exam <Chiquita Miguel DO - Last Filed: 09/28/22 20:10> Const General: cooperative and no acute distress Orientation: alert, awake and oriented x3 HENMT Head: normal to inspection Face and sinus: normal facial exam Eyes General: appearance normal, both eyes and all related structures Pupils: PERRL EOM: EOM intact bilaterally Neck Neck: normal visual inspection and No submandibular swelling Lymphatic: no lymphadenopathy noted Chest Chest: normal inspection of the chest and no tenderness Resp Effort & Inspection: normal respiratory effort and able to speak in complete sentences Auscultation: clear to auscultation bilaterally Cardio Rate: regular rate Rhythm: regular rhythm GI Inspection: normal to inspection Palpation: soft, not firm, not rigid and tender (minimal across lower quadrants) Auscultation: hypoactive bowel sounds Other: Minimal blood noted in vaginal vault. No clots noted. Minimal bleeding noted from cervical os. No significant cervical motion tenderness or adnexal mass or tenderness. Back/Spine/Pelvis Thoracic/Lumbar Spine: thoracic and lumbar spine normal to inspection Skin General skin exam: no rashes or lesions noted Neuro General: patient alert, patient awake and patient oriented x3 Cognition: normal cognition Speech: speech normal Motor: muscle tone normal throughout Sensory Exam: no sensory deficits noted Extrem General: normal to inspection, full ROM, capillary refill normal, no calf tenderness bilaterally and no edema Psych Appearance: grossly normal Mental Status: mental status grossly normal Speech and Movement: speech and movement normal Affect: normal affect Course <Chiquita Miguel DO - Last Filed: 09/28/22 20:10> Vital Signs Vital signs: Vital Signs Pulse 122 H 09/28/22 19:22 Respiratory Rate 26 H 09/28/22 19:22 Blood Pressure 131/88 09/28/22 19:22 Pulse Oximetry 95 09/28/22 19:22 Pulse 122 H 09/28/22 19:22 Respiratory Rate 26 H 09/28/22 19:22 Blood Pressure 131/88 09/28/22 19:22 Blood Pressure Position Sitting 09/28/22 19:22 Pulse Oximetry 95 09/28/22 19:22 Oxygen Delivery Method Room Air 09/28/22 19:22 Oxygen Flow Rate 0 09/28/22 19:22 Pain Level 8 09/28/22 19:22 <Jayy Farias DO - Last Filed: 09/28/22 23:07> Critical Care Time Critical Care Time: Yes Total Critical Care Time: 45 Attestation: Upon my evaluation, this patient had a high probability of imminent or life-threatening deterioration, which required my direct attention, intervention, and personal management. I have personally provided 45 minutes of critical care time exclusive of time spent on separately billable procedures. Time includes review of laboratory data, radiology results, discussion with consultants, and monitoring for potential decompensation. Interventions were performed as documented. Sign Out <Chiquita Miguel DO - Last Filed: 09/28/22 20:10> Sign Out Data: Sign Out Comment: Follow up on labs and imaging and final disposition. Last updated by Chiquita Miguel DO at 09/28/22 20:11
--- NOTE | 2022-09-28 19:45 | DI.CT_ITS ---
Exam(s) CT CHEST PE ABD PELVIS W EXAM: CT CHEST PE ABD PELVIS W CLINICAL HISTORY: sob, cough, lower abd pain, vaginal bleeding. TECHNIQUE: Imaging Protocol: Axial CT angiography was performed with multi-slice acquisition and m ulti-planar and/or 3D reconstructions. CONTRAST MATERIAL: Intravenous: Omnipaque 350 Contrast volume:100 ml Oral: None COMPARISON: No exams were available for comparison FINDINGS: CHEST: PULMONARY ARTERIES: This study is positive for bilateral pulmonary emboli. There are multiple fillin g defects within the pulmonary arteries bilaterally involving all lobes of both lungs. No saddle emb olus evident.. LUNGS: No evidence of pulmonary infarction nor pleural effusions. No confluent infiltrates. However , there is a right lower lobe nodule, this noncalcified nodule measuring 6 millimeters. Requires fol low-up.. There are no pleural effusions. MEDIASTINUM: There is no hilar nor mediastinal adenopathy. Visualized thyroid unremarkable. CARDIAC: Heart size is upper normal. There is no pericardial effusion. There is some shift of the i nter ventricular septum implying right heart strain. There is also reflux of IV contrast into the in trahepatic IVC. Caliber thoracic aorta is within normal limits. No evidence of Arctic dissection. OSSEOUS: No significant osseous lesions.. ABDOMEN: There is no ascites. LIVER: There are no focal hepatic lesions nor dilatation of intrahepatic ducts. GALLBLADDER/BILIARY: No obvious gallbladder pathology. CBD is not dilated. PANCREAS: No evidence of pancreatic mass nor dilatation of the pancreatic duct. SPLEEN: Spleen is not enlarged. There are no intrasplenic lesions. Splenic and portal veins are lazaro nt. ADRENALS: There is a no Samia is density left adrenal gland mass which measures 2.7 cm wide by 2.6 cm AP by 3 cm craniocaudal. The opposite-right adrenal gland appears unremarkable. KIDNEYS:Left kidney unremarkable. There is a 5 x 4 by 4.4 cm cyst in the inferior pole of the right kidney. However, density units within this cyst exceed 25 HU and therefore should be further investi gated with ultrasound. No calculi nor hydronephrosis. No solid renal masses. ABDOMINAL AORTA: Abdominal aorta is not enlarged. LYMPH NODES: There is no retroperitoneal or para-aortic adenopathy. ABDOMINAL WALL/GI: No evidence of significant anterior abdominal wall hernia. No bowel obstruction. PELVIS: LYMPH NODES: There is no intrapelvic nor inguinal adenopathy. GI: No evidence of appendicitis.Sigmoid diverticulosis. No obvious acute diverticulitis. URINARY BLADDER: No calculi nor masses evident REPRODUCTIVE: Significant abnormal thickening of the endometrium is noted. Requires biopsy to rule o ut endometrial malignancy. Endometrial thickness is 3.6 cm. No adnexal masses evident. OSSEOUS: No significant osseous lesions. No fractures. IMPRESSION: 1. Is positive for the presence of extensive bilateral pulmonary emboli and there is evidence of righ t heart strain.. No evidence of pulmonary infarction. No evidence of aortic dissection. No pericar dial effusion. No pleural effusions. 2. There is a small 6 millimeter nodule in the right lower lobe which will require appropriate imagin g follow-up. 3. There is a left adrenal mass measuring 3 x 2.7 x 2.6 cm which will require appropriate follow-up. No findings in the opposite-right adrenal gland. 4. There is a 5 cm probable cyst in the right kidney. However, this exhibits Hounsfield units higher than a typical cyst and should be further investigated with ultrasound. 5. Significantly abnormal thickened endometrium, malignant until proven otherwise. Appropriate refer ral for endometrial biopsy is recommended. 6. There is sigmoid diverticulosis but no evidence of acute diverticulitis. First read by [facility]. RADIATION DOSE DELIVERED: 2,301.18mGy.cm Total DLP DATA REPOSITORY: All CT scans at this facility are submitted to the National Radiology Data Registry (NRDR) Dose Index Registry (DIR) with the [employer] ([employer]). RADIATION OPTIMIZATION: All CT scans at this facility use at least one of these dose optimization te chniques: automated exposure control; mA and/or kV adjustment per patient size (includes targeted exa ms where dose is matched to clinical indication); or iterative reconstruction.
--- NOTE | 2022-09-28 20:15 | RT.EKG_ITS ---
APPROVED REPORT Exam: Resting ECG Reason for Exam: shortness of breath Patient Location: E HR:104 bpm ECG Measurements Heart Rate 104 AXIS MS 145 P 6 QRSd 73 QRS 49 QT 364 T 49 QTc 478 Conclusion Sinus tachycardia...rate> 99 Low voltage, precordial leads...precordial leads <1.0mV Physician: no stemi
[2022-09-28 20:16] LABS: Abs Immature Grans 0.13 10^3/uL (0.0-0.06); Basophils % 0.3; Eosinophils % 0.1; HCT 45.6 % (36.0-46.0); HGB 14.4 g/dL (11.2-15.7); Immature Grans % 0.6; Lymphocytes % 10.6; MCH 27.9 pg (27.0-33.0); MCHC 31.6 % (32.0-36.0); MCV 88 fL (80-95); MPV 10.1 fL (8.0-11.0); Monocytes % 5.5; Neutrophils % 82.9; Platelet Count 252 10^3/uL (130-400); RBC 5.16 10^6/uL (3.93-5.22); RDW 12.8 % (11.7-14.6); RDW-SD 41.3 fL; WBC 20.02 10^3/uL (4.4-10.8)
[2022-09-28 20:17] LABS: Absolute Basophil Count 0.06 10^3/uL (0.0-0.2); Absolute Eosinophil Count 0.02 10^3/uL (0.0-0.7); Absolute Lymphocyte Count 2.12 10^3/uL (1.2-3.4)
[2022-09-28] MEDS: Normal Saline 1,000 ML 1000 ML IV (20:30)
[2022-09-28 20:31] LABS: ALT 37 U/L (14-59); AST 22 U/L (15-37); Albumin 3.4 g/dL (3.4-5.0); Alkaline Phosphatase 105 U/L (46-116); Anion Gap 12.8 mmol/L (3-11); BUN 29 mg/dL (7-18); Bilirubin, Total 0.4 mg/dL (0.2-1.0); CO2 25.2 mmol/L (21.0-32.0); CREATININE 1.4 mg/dL (0.55-1.02); Calcium 9.2 mg/dL (8.5-10.1); Chloride 103 mmol/L (98-107); Estimated GFR 40.98 (mL/min/1.73m2); Glucose 231 mg/dL (74-106); Magnesium 1.7 mg/dL (1.8-2.4); Potassium 3.3 mmol/L (3.5-5.1); Sodium 141 mmol/L (136-145); Total Protein 7.7 g/dL (6.4-8.2); Troponin I < 50 ng/L (<or=60)
[2022-09-28] MEDS: ACETAMINOPHEN 1,000 MG/100 ML BTL 400 MG IVPB (20:31)
[2022-09-28 20:50] LABS: COVID-19 PCR Negative (Negative); Influenza A PCR Negative (Negative); Influenza B PCR Negative (Negative); RSV PCR Negative (Negative)
[2022-09-28 20:52] LABS: Source Nasopharynx
[2022-09-28] MEDS: Normal Saline - Diluent 50 ML VIAL IJ (21:12)
[2022-09-28] MEDS: Normal Saline Flush 10 ML SYR IVP (21:12)
[2022-09-28] MEDS: Omnipaque 350 MG/ML 100 ML BTL IJ (21:13)
[2022-09-28 21:16] LABS: Bilirubin Negative (Negative); Blood Large (Negative); Clarity Cloudy (Clear); Glucose Negative (Negative); Ketones Negative (Negative); Leukocyte Esterase Small (Negative); Nitrite Negative (Negative); Specific Gravity 1.025 (1.005-1.025); pH 5.5 (5-8)
[2022-09-28 21:28] LABS: Bacteria Few HPF (Negative); C & S Indicated? Yes; Crystals Negative HPF (Negative); Epithelial Cells Few HPF (Negative); Mucus Negative (Negative); RBC >50 HPF (0-2)
[2022-09-28 21:50] LABS: PTT Activated 22.8 sec (21.0-27.5); Prothrombin Time 10.2 sec (9.3-11.0)
[2022-09-28] MEDS: Norethindrone 5 MG TAB PO (22:13)
--- NOTE | 2022-09-28 22:18 | DI.VRAD_ITS ---
Addendum created by Bayron Izaguirre MD on 09/28/2022 10:19:44 PM EST: THIS REPORT CONTAINS FINDINGS THAT MAY BE CRITICAL TO PATIENT CARE. The findings were verbally communicated via telephone conference with Dr. Farias at 10:18 PM EST on 09/28/2022. The findings were acknowledged and understood. Initial report created on 09/28/2022 10:17:53 PM EST: PROCEDURE INFORMATION: Exam: CTA Chest With Contrast CTA Abdomen With Contrast Exam date and time: 09/28/2022 9:28 PM Age: 67 years old Clinical indication: SOB, cough, lower abd pain, vaginal bleeding; Prior surgery; date: 6+ months: TECHNIQUE: Imaging protocol: Computed tomographic angiography of the chest with contrast. Computed tomographic angiography of the abdomen with contrast. 3D rendering (Not supervised by radiologist): MIP and/or 3D reconstructed images were created by the technologist. Contrast material: OMNIPAQUE 350; Contrast volume: 100 ml; Contrast route: INTRAVENOUS (IV); COMPARISON: No relevant prior studies available. FINDINGS: VASCULATURE: Pulmonary arteries: Focal areas of decreased density / intraluminal filling defects are present within the pulmonary arterial system bilaterally consistent with pulmonary emboli. No saddle embolus Aorta: Normal caliber thoracic and abdominal aorta without aneurysm or dissection. Celiac trunk and mesenteric arteries: No occlusion or significant stenosis. Renal arteries: No occlusion or significant stenosis. CHEST: Lungs: No alveolar or ground glass infiltrate. 5.5 mm nodule inferolateral right lung (image 352, series 7) Pleural spaces: No pleural fluid collection. No pneumothorax. Heart: Associated right ventricular strain (RV/LV ratio = 1.6). No pericardial effusion. ABDOMEN AND PELVIS: Liver: No mass. Gallbladder and bile ducts: Unremarkable. No calcified stones. No ductal dilation. Pancreas: Pancreatic fatty infiltration. No pancreatic ductal dilatation. Spleen: Unremarkable. No splenomegaly. Adrenal glands: Normal right adrenal gland. Approximate 2.5 x 2.6 cm mildly inhomogeneous left adrenal nodule (46-58 HU). Non-emergent adrenal CT is recommended. ([facility] Kidneys and ureters: No hydronephrosis. No calcified renal or ureteral stones. No perinephric stranding or perinephric fluid. Approximate 4.4 x 4.0 cm complex right renal cyst (22-30 HU). Stomach and bowel: No generalized ileus or bowel obstruction. Scattered colon diverticuli without evidence of diverticulitis. Intraperitoneal space: No free air. No significant fluid collection. Reproductive: Distended endometrial cavity measuring 3.5 cm transversely (30 HU) - possible pyometra or hematometra. Endometrial mass cannot be excluded. Lymph nodes: No enlarged lymph nodes. Bones/joints: Spinal degenerative changes. Soft tissues: Unremarkable. IMPRESSION: 1. CT examination POSITIVE for bilateral acute pulmonary embolism. 2. No saddle embolus. 3. Associated right ventricular strain (RV/LV ratio = 1.6). 4. Normal caliber thoracic and abdominal aorta without aneurysm or dissection. 5. No pulmonary infiltrate. 6. Approximate 2.5 x 2.6 cm mildly inhomogeneous left adrenal nodule (46-58 HU). Non-emergent adrenal CT is recommended. (Reference: Miriam). 7. Approximate 4.4 x 4.0 cm complex right renal cyst (22-30 HU). 8. Distended endometrial cavity measuring 3.5 cm transversely (30 HU) - possible pyometra or hematometra. Endometrial mass cannot be excluded. 9. Scattered colon diverticuli without evidence of diverticulitis. REFERENCES: Miriam SANTIZO, et al. Management of Incidental Adrenal Masses: A White Paper of the ACR Incidental Findings Committee. J Am Gt Radiol. 2017;14(8):6568-4566. Dictated and Authenticated by: Bayron Izaguirre MD. Ordering:SYLVIA Porras MD
[2022-09-28 22:45] LABS: NT-proBNP 7682 pg/mL (<300)
--- NOTE | 2022-09-28 23:18 | W.PM.HP.N ---
Date of service: 09/28/22 Time of Service: 23:19 Assessment and Plan Assessment and plan (1) Pulmonary embolism: Status: Chronic Assessment and plan: PE. With right heart strain, and also because of potential surgical intervention WRT uterine bleeding, will continue heparin for now. BP and oxygenation satisfactory. As to precipitant a hypercoaguable state related to underlying uterine lesion is the first concern, though we do not of course yet have tissue diagnosis. The recent shoulder surgery raises question of possible precipitant for DVT but exam does not show any such signs in LUE. Of ourse if the uterine bleeding should worsen on the anticoagulation we will need to adjust the program. As to the uterine lesion will continue progesterone and await Home Mortgage Disclosure Act Specialist input. History of Present Illness History of Present Illness Chief Complaint: SOB, vaginal bleeding Narrative: 67 female reports one week of dry cough and SOB. Saw PCP 3 days RADIATOR FITTER, wheezing noted, started on prednisone, without help. Then one day now of vaginal bleeding. In ER findings of note for tachypnea with O2 sats mid-90s; clear lungs; trace bilateral pedal edema (baseline per patient), and scant blood per cervical os. Labs of note for white count 20 (on Prednisone), Hct 45 and CTA showing multiple bilateral PE with evidence of right heart strain. EKG without right axis deviation. CT shows dilated uterine cavity, cannot rule out mass. Patient started on heparin for PE and, after consultation with Gtn, on progesterone; they will see her in AM. I was asked to evaluate for admission. Patient denies leg injury or immobilization. She did have left shoulder replacement approx one month ago. Review of Systems Narrative: per HPI PFSH All Active Problems Pulmonary embolism (Chronic) Thickened endometrium (Acute) Abnormal vaginal bleeding (Acute) Allergic conjunctivitis and rhinitis (Chronic 04/12/18) This was caused by birds and once rid of them, she has no symptoms. Anxiety (Acute) Depressive disorder (Acute) Increased BMI (Acute) Family history of diabetes mellitus in mother (Chronic) Hyperlipidemia (Chronic) Urge incontinence of urine (Chronic) Hyperglycemia (Chronic) Family history of coronary artery disease in father (Chronic) IFG (impaired fasting glucose) (Chronic) Low back pain (Acute) Ankle fracture (Acute) Left knee pain (Acute) HTN (hypertension) (Chronic) Finger stiffness (Acute) Prediabetes (Acute) Right shoulder pain (Acute) Primary osteoarthritis, left shoulder (Chronic) Intra-articular injection: 03/06/2022; 12/05/2021 Medical History Anxiety Benign hypertension Contracture of left shoulder Depressive disorder Tendinitis of long head of biceps brachii of left shoulder Surgical History ANKLE FX (~2005) pin and plate hardware in ankle/leg Excision, Lesion (11/20/16) sebaceous cyst Hx of tonsillectomy Family History Mother , age 94 Essential hypertension Heart disease Hyperlipidemia Stroke Father , age 63 Essential hypertension Heart disease Hyperlipidemia Stroke Lung cancer Throat cancer Sister Diabetes Essential hypertension Brother Essential hypertension Asthma Maternal Grandfather , age 42 Essential hypertension Heart disease Angela Gehrigs disease Paternal Grandfather , in his 60s No problems noted. Maternal Grandmother , Approx age 62-65 Heart disease Stroke Paternal Grandmother , In her 60s Accident - struck by car when walking No problems noted. Son No problems noted. Social History Smoking/Tobacco Use Status: Never Second Hand Exposure: Yes Smoking risk assessment performed?: Yes Alcohol Intake: never Drug use: Never Substance use type: does not use Caregiver/Support person: No Housing: house Communication Needs: None Do you need help understanding health information?: Never Pets and animals: Yes Pets and animals: cat(s), dog(s) and fish Sexually active: No Do you think of yourself as: straight/heterosexual Current gender identity: female What is your relationship status?: How often do you talk on the phone with friends or family?: three or more times per week How often do you get together with friends or relatives?: once per week How often do you attend rastafari or jain services?: decline to answer Do you belong to any clubs or organized social groups?: yes Panel score (0-1 are the most socially isolated patients): 2 What type of physical activity do you participate in: walking Duration: < 15 minutes/day Frequency: decline to answer Jenni/Yarsanism: Sabianism Special jenni needs: No Seatbelt use: always Helmet use: Yes Helmet use: always Drive intox or ride w/intox petroleum transport driver: No Do you feel safe at home: Yes Do you feel safe in your relationship?: Yes Meds Allergies and Home Medications Allergies Allergy/AdvReac Type Severity Reaction Status Date / Time hydrochlorothiazide Allergy Severe ILLNESS, Verified 09/28/22 19:33 hives amlodipine Allergy Unknown HIVES Verified 09/28/22 19:33 Home Medications Medication Instructions Recorded Confirmed Type Engerix-B (PF) 20 mcg/mL 1 ml IM ONCE #1 mL 10/18/18 07/09/22 Clinic intramuscular suspension (hepatitis B virus vacc.rec(PF)) red yeast rice 600 mg capsule 600 mg PO DAILY #90 caps 07/17/21 09/25/22 Rx metoprolol succinate 200 mg 200 mg PO DAILY #90 tab-caps 07/31/21 09/28/22 Rx tablet,extended release 24 hr spironolactone 25 mg tablet 12.5 mg PO DAILY #90 tabs 07/31/21 09/28/22 Rx acetaminophen 325 mg capsule 325 mg PO ONCE PRN 10/30/21 09/25/22 History lisinopril 40 mg tablet 40 mg PO DAILY #90 tab-caps 02/10/22 09/28/22 Rx torsemide 10 mg tablet 10 mg PO .every 2 days #45 tabs 02/21/22 09/28/22 Rx prednisone 20 mg tablet 40 mg PO DAILY #10 tabs 09/23/22 09/25/22 Rx Exam Narrative Exam Narrative: 131/88, 122 (last recorded, during visit pulse in 90s), 36.4, 26, 95% RA. HEENT atraumatic; neck supple, JVP approx 10 cm; lungs clear; heart RRR, no RV heave, no murmurs; abdomen soft and NT; pelevic deferred, not repeated; extremities trace bilateral pedal edema, no calf tenderness, no edema lUE or cords; neuro Ox3, luicid, moves all 4s Results Labs Result diagrams: 09/28/22 20:00 09/28/22 20:00 Labs: Laboratory Results - last 24 hr 09/28/22 09/28/22 09/28/22 20:00 20:00 20:00 WBC 20.02 H RBC 5.16 Hgb 14.4 Hct 45.6 MCV 88 MCH 27.9 MCHC 31.6 L RDW 12.8 Plt Count 252 MPV 10.1 Immature Gran % 0.6 Neutrophils % 82.9 Lymphocytes % 10.6 Monocytes % 5.5 Eosinophils % 0.1 Basophils % 0.3 Nucleated RBC % 0.0 Absolute Neutrophils 16.60 H Absolute Lymphocytes 2.12 Absolute Monocytes 1.10 H Absolute Eosinophils 0.02 Absolute Basophils 0.06 PT INR APTT Sodium 141 Potassium 3.3 L Chloride 103 Carbon Dioxide 25.2 Anion Gap 12.8 H BUN 29 H Creatinine 1.4 H Est GFR (CKD-EPI 2020) 40.98 Glucose 231 H Calcium 9.2 Magnesium 1.7 L Total Bilirubin 0.4 AST 22 ALT 37 Alkaline Phosphatase 105 Troponin I < 50 NT-Pro-B Natriuret Pep Total Protein 7.7 Albumin 3.4 Urine Color Urine Clarity Urine pH Ur Specific [place] Urine Protein Urine Ketones Urine Blood Urine Nitrite Urine Bilirubin Urine Urobilinogen Ur Leukocyte Esterase Urine RBC Urine WBC Ur Epithelial Cells Urine Crystals Urine Bacteria Urine Mucus Ur Culture Indicated? Urine Glucose COVID-19 Source Nasopharynx SARS-CoV-2 (PCR) Negative Influenza Type A (PCR) Negative Influenza Type B (PCR) Negative RSV (PCR) Negative 09/28/22 09/28/22 09/28/22 20:00 20:00 21:07 WBC RBC Hgb Hct MCV MCH MCHC RDW Plt Count MPV Immature Gran % Neutrophils % Lymphocytes % Monocytes % Eosinophils % Basophils % Nucleated RBC % Absolute Neutrophils Absolute Lymphocytes Absolute Monocytes Absolute Eosinophils Absolute Basophils PT 10.2 INR 1.0 APTT 22.8 Sodium Potassium Chloride Carbon Dioxide Anion Gap BUN Creatinine Est GFR (CKD-EPI 2020) Glucose Calcium Magnesium Total Bilirubin AST ALT Alkaline Phosphatase Troponin I NT-Pro-B Natriuret Pep 7682 H Total Protein Albumin Urine Color Yellow Urine Clarity Cloudy Urine pH 5.5 Ur Specific [place] 1.025 Urine Protein 30 H Urine Ketones Negative Urine Blood Large H Urine Nitrite Negative Urine Bilirubin Negative Urine Urobilinogen 1.0 H Ur Leukocyte Esterase Small H Urine RBC >50 H Urine WBC 3-5 Ur Epithelial Cells Few Urine Crystals Negative Urine Bacteria Few Urine Mucus Negative Ur Culture Indicated? Yes Urine Glucose Negative COVID-19 Source SARS-CoV-2 (PCR) Influenza Type A (PCR) Influenza Type B (PCR) RSV (PCR) Last Vital Signs Pulse 122 H 09/28/22 19:22 Resp 26 H 09/28/22 19:22 BP 131/88 09/28/22 19:22 Pulse Ox 95 09/28/22 19:22
[2022-09-29] VITALS (45 sets, daily range): BP systolic 99–175; BP diastolic 75–109; PULSE 90–105; RESP 15–24; TEMP 36.1–37; O2SAT 89–100
[2022-09-29] MEDS: ACETAMINOPHEN 1,000 MG/100 ML BTL 400 MG IVPB ×2 (01:57→10:59)
[2022-09-29] MEDS: Lactated Ringers 1,000 ML 75 ML IV ×2 (02:27→16:30)
[2022-09-29 04:59] LABS: PTT Activated 69.5 sec (21.0-27.5)
[2022-09-29 06:24] LABS: HCT 40.8 % (36.0-46.0)
--- NOTE | 2022-09-29 06:24 | NUR.NOTE ---
Nursing Note: Patient with h/o urge incontinence. Has changed briefs and panti-liner x 2 overnight. Dilutional bloody drainage.
--- NOTE | 2022-09-29 07:15 | RT.EKG_ITS ---
APPROVED REPORT Exam: Resting ECG Reason for Exam: B PEs with R heart strain Patient Location: I HR:88 bpm ECG Measurements Heart Rate 88 AXIS AR 145 P 52 QRSd 79 QRS 1 QT 405 T 1 QTc 490 Conclusion Sinus rhythm...normal P axis, V-rate 50- 99 Borderline T abnormalities, anterior leads...T flat or neg, V2-V4 Borderline prolonged QT interval...QTc >485mS Poor R wave progression
[2022-09-29] MEDS: Spironolactone 25 MG TAB 12.5 MG PO (07:58)
[2022-09-29] MEDS: Metoprolol CR 100 MG TABCR 200 MG PO (08:02)
[2022-09-29 08:31] LABS: Abs Immature Grans 0.07 10^3/uL (0.0-0.06); Absolute Basophil Count 0.03 10^3/uL (0.0-0.2); Absolute Lymphocyte Count 2.84 10^3/uL (1.2-3.4); Absolute Monocyte Count 0.73 10^3/uL (0.1-0.8); Basophils % 0.2; Eosinophils % 0.4; HCT 41.9 % (36.0-46.0); HGB 13.3 g/dL (11.2-15.7); Immature Grans % 0.5; Lymphocytes % 20.1; MCH 28.2 pg (27.0-33.0); MCHC 31.7 % (32.0-36.0); MCV 89 fL (80-95); MPV 11.9 fL (8.0-11.0); Monocytes % 5.2; Neutrophils % 73.6; Platelet Count 166 10^3/uL (130-400); RBC 4.72 10^6/uL (3.93-5.22); RDW 12.9 % (11.7-14.6); RDW-SD 41.8 fL; WBC 14.12 10^3/uL (4.4-10.8)
[2022-09-29 08:42] LABS: Absolute Eosinophil Count 0.06 10^3/uL (0.0-0.7); Absolute Neutrophil Count 10.39 10^3/uL (1.2-6.7)
[2022-09-29 08:59] LABS: Hemoglobin A1C 7.2 % (<5.7)
[2022-09-29 09:04] LABS: Anion Gap 10.5 mmol/L (3-11); BUN 15 mg/dL (7-18); CO2 25.5 mmol/L (21.0-32.0); CREATININE 0.9 mg/dL (0.55-1.02); Calcium 8.9 mg/dL (8.5-10.1); Chloride 105 mmol/L (98-107); Estimated GFR 69.64 (mL/min/1.73m2); Glucose 141 mg/dL (74-106); Potassium 3.4 mmol/L (3.5-5.1); Sodium 141 mmol/L (136-145); Troponin I < 50 ng/L (<or=60)
--- NOTE | 2022-09-29 10:25 | W.PM.PROGNOT ---
Date of Service Date of service: 09/29/22 Time of Service: 17:15 Assessment and Plan Assessment and plan (1) Pulmonary embolism: Status: Chronic Assessment and plan: bilateral PEs. Etiology: ?due to recent ortho surgery vs possible uterine malignancy. Continue anticoagulation with heparin gtt. Suggestion of R heart strain on CTA: obtain echo. Discussed with PE team at [facility]: as the patient is hemodynamically stable and not requiring oxygen, it is not felt that a transfer to a tertiary care facility is indicated. Continue to monitor on tele. Would need an exercise oximetry prior to discharge. Add IS/a capella. Obtain sputum sample. Monitor for hemoptysis. Uterine bx tomorrow. Venous dopplers BUEs tomorrow. (LEs negative). DOAC on d/c. (2) Abnormal vaginal bleeding: Status: Acute Assessment and plan: Continue agestin. See #3 Tolerating anticoagulation. (3) Thickened endometrium: Status: Acute Assessment and plan: Planned for endometrial biopsy tomorrow at bedside. Concern for possible uterine cancer. (4) Newly diagnosed diabetes: Status: Acute Assessment and plan: C/s DM education Cover with SSI; carb consistent diet (5) Hypokalemia: Status: Acute Assessment and plan: Replete, recheck in am (6) Discharge planning issues: Status: Acute Assessment and plan: Full code Continues to require hospitalizaton. No indication for transfer to a tertiary care facility, per [facility] PE team (Dr Velez) Subjective Subjective Interval history since last seen: Feels better today. Continues to report PAEZ, but not at rest. Feels a lot better. No CP on inspiration. Feels cough is becoming productive. Denies dizziness, chest pain, nausea. No BM. Case reviewed with [facility] PE team: do not recommend a more advanced intervention than anticoagulation. DOAC on discharge. Discussed with APPRENTICE FUNERAL DIRECTOR: Dr Chavira is planning to do an endometrial biopsy at bedside tomorrow w/o anesthesia. For now, her degree of vaginal bleeding does not preclude her being on anticoagulation. Exam Narrative Exam Narrative: General: Pleasant obese female who is A&Ox3, NAD HEENT: EOMI, MMM Heart: RRR, no m/r/g Lungs: CTAB Abdomen: soft, nontender, nondistended Extremities: no edema BLEs Objective Last Vital Signs Temp 36.1 C L 09/29/22 05:56 Pulse 91 H 12/26/22 08:39 Resp 22 09/29/22 05:56 BP 135/80 09/29/22 08:39 Pulse Ox 96 09/29/22 05:56 Laboratory Results - last 24 hr 09/28/22 09/28/22 09/28/22 20:00 20:00 20:00 WBC 20.02 H RBC 5.16 Hgb 14.4 Hct 45.6 MCV 88 MCH 27.9 MCHC 31.6 L RDW 12.8 Plt Count 252 MPV 10.1 Immature Gran % 0.6 Neutrophils % 82.9 Lymphocytes % 10.6 Monocytes % 5.5 Eosinophils % 0.1 Basophils % 0.3 Nucleated RBC % 0.0 Absolute Neutrophils 16.60 H Absolute Lymphocytes 2.12 Absolute Monocytes 1.10 H Absolute Eosinophils 0.02 Absolute Basophils 0.06 PT INR APTT Sodium 141 Potassium 3.3 L Chloride 103 Carbon Dioxide 25.2 Anion Gap 12.8 H BUN 29 H Creatinine 1.4 H Est GFR (CKD-EPI 2020) 40.98 Glucose 231 H Hemoglobin A1c Calcium 9.2 Magnesium 1.7 L Total Bilirubin 0.4 AST 22 ALT 37 Alkaline Phosphatase 105 Troponin I < 50 NT-Pro-B Natriuret Pep Total Protein 7.7 Albumin 3.4 Urine Color Urine Clarity Urine pH Ur Specific [place] Urine Protein Urine Ketones Urine Blood Urine Nitrite Urine Bilirubin Urine Urobilinogen Ur Leukocyte Esterase Urine RBC Urine WBC Ur Epithelial Cells Urine Crystals Urine Bacteria Urine Mucus Ur Culture Indicated? Urine Glucose COVID-19 Source Nasopharynx SARS-CoV-2 (PCR) Negative Influenza Type A (PCR) Negative Influenza Type B (PCR) Negative RSV (PCR) Negative 09/28/22 09/28/22 09/28/22 20:00 20:00 21:07 WBC RBC Hgb Hct MCV MCH MCHC RDW Plt Count MPV Immature Gran % Neutrophils % Lymphocytes % Monocytes % Eosinophils % Basophils % Nucleated RBC % Absolute Neutrophils Absolute Lymphocytes Absolute Monocytes Absolute Eosinophils Absolute Basophils PT 10.2 INR 1.0 APTT 22.8 Sodium Potassium Chloride Carbon Dioxide Anion Gap BUN Creatinine Est GFR (CKD-EPI 2020) Glucose Hemoglobin A1c Calcium Magnesium Total Bilirubin AST ALT Alkaline Phosphatase Troponin I NT-Pro-B Natriuret Pep 7682 H Total Protein Albumin Urine Color Yellow Urine Clarity Cloudy Urine pH 5.5 Ur Specific [place] 1.025 Urine Protein 30 H Urine Ketones Negative Urine Blood Large H Urine Nitrite Negative Urine Bilirubin Negative Urine Urobilinogen 1.0 H Ur Leukocyte Esterase Small H Urine RBC >50 H Urine WBC 3-5 Ur Epithelial Cells Few Urine Crystals Negative Urine Bacteria Few Urine Mucus Negative Ur Culture Indicated? Yes Urine Glucose Negative COVID-19 Source SARS-CoV-2 (PCR) Influenza Type A (PCR) Influenza Type B (PCR) RSV (PCR) 09/29/22 09/29/22 09/29/22 04:27 04:27 04:27 WBC 14.12 H RBC 4.72 Hgb 13.3 Hct 40.8 41.9 MCV 89 MCH 28.2 MCHC 31.7 L RDW 12.9 Plt Count 166 MPV 11.9 H Immature Gran % 0.5 Neutrophils % 73.6 Lymphocytes % 20.1 Monocytes % 5.2 Eosinophils % 0.4 Basophils % 0.2 Nucleated RBC % 0.0 Absolute Neutrophils 10.39 H Absolute Lymphocytes 2.84 Absolute Monocytes 0.73 Absolute Eosinophils 0.06 Absolute Basophils 0.03 PT INR APTT 69.5 H Sodium Potassium Chloride Carbon Dioxide Anion Gap BUN Creatinine Est GFR (CKD-EPI 2020) Glucose Hemoglobin A1c Calcium Magnesium Total Bilirubin AST ALT Alkaline Phosphatase Troponin I NT-Pro-B Natriuret Pep Total Protein Albumin Urine Color Urine Clarity Urine pH Ur Specific [place] Urine Protein Urine Ketones Urine Blood Urine Nitrite Urine Bilirubin Urine Urobilinogen Ur Leukocyte Esterase Urine RBC Urine WBC Ur Epithelial Cells Urine Crystals Urine Bacteria Urine Mucus Ur Culture Indicated? Urine Glucose COVID-19 Source SARS-CoV-2 (PCR) Influenza Type A (PCR) Influenza Type B (PCR) RSV (PCR) 09/29/22 09/29/22 04:27 08:40 WBC RBC Hgb Hct MCV MCH MCHC RDW Plt Count MPV Immature Gran % Neutrophils % Lymphocytes % Monocytes % Eosinophils % Basophils % Nucleated RBC % Absolute Neutrophils Absolute Lymphocytes Absolute Monocytes Absolute Eosinophils Absolute Basophils PT INR APTT Sodium 141 Potassium 3.4 L Chloride 105 Carbon Dioxide 25.5 Anion Gap 10.5 BUN 15 Creatinine 0.9 Est GFR (CKD-EPI 2020) 69.64 Glucose 141 H Hemoglobin A1c 7.2 H Calcium 8.9 Magnesium 2.0 Total Bilirubin AST ALT Alkaline Phosphatase Troponin I < 50 NT-Pro-B Natriuret Pep Total Protein Albumin Urine Color Urine Clarity Urine pH Ur Specific [place] Urine Protein Urine Ketones Urine Blood Urine Nitrite Urine Bilirubin Urine Urobilinogen Ur Leukocyte Esterase Urine RBC Urine WBC Ur Epithelial Cells Urine Crystals Urine Bacteria Urine Mucus Ur Culture Indicated? Urine Glucose COVID-19 Source SARS-CoV-2 (PCR) Influenza Type A (PCR) Influenza Type B (PCR) RSV (PCR) Objective Narrative Objective Narrative: US venous: No ultrasound evidence of DVT in either lower extremity.
[2022-09-29] MEDS: Norethindrone 5 MG TAB PO (11:00)
--- NOTE | 2022-09-29 11:17 | W.GYNCONSULT ---
Date of service: 09/29/22 Time of Service: 11:17 Assessment and Plan Assessment and plan (1) Pulmonary embolism: Status: Chronic Assessment and plan: Acute pulmonary embolism, bilateral, in need of full anticoagulation. Medical management. (2) Thickened endometrium: Status: Acute Assessment and plan: Markedly thickened endometrium highly suspicious for endometrial malignancy. Will need endometrial sampling once stable from pulmonary standpoint. (3) Abnormal vaginal bleeding: Status: Acute Assessment and plan: Bleeding due to thickened endometrium, and the strong possibility of endometrial adenocarcinoma. At this point, minimal bleeding on norethindrone acetate, 5 mg twice daily. May increase as needed. Would anticipate attempt of endometrial sampling via endometrial biopsy tomorrow at bedside. We will also obtain a Pap smear at that time. Last Pap smear performed 2015 which was normal. If sampling is inadequate or unable to be obtained, stabilization with anticoagulation for treatment of her pulmonary emboli and outpatient follow-up for dilation and curettage. This may be better served at a tertiary care facility. At this point patient can eat, continue to monitor. (4) Increased BMI: Status: Acute (5) Hyperlipidemia: Status: Chronic (6) Urge incontinence of urine: Status: Chronic (7) HTN (hypertension): Status: Chronic Qualifiers: Hypertension type: essential hypertension Qualified Code(s): I10 - Essential (primary) hypertension (8) Prediabetes: Status: Acute History of Present Illness History of Present Illness Chief Complaint: Shortness of breath and vaginal bleeding Narrative: Patient is a 47-year-old 2 para 1-0-1-1 remote history of a prior section. She had a normal menopause at the age of 47 and no postmenopausal bleeding since that time. Over the past few weeks, she has had worsening shortness of breath with negative viral studies. In the last 24 hours she noticed onset of vaginal bleeding and some lower abdominal cramping. This prompted a visit to the emergency department where she was diagnosed with not only bilateral pulmonary emboli, but thickened endometrium. Vital signs, though somewhat tachycardic are relatively stable. Her CT scan reveals a significantly thickened endometrium consistent with mass. Her medical history is that she is hypertensive and newly diagnosed as diabetic. All of these along with her obesity contribute to her risk factors for endometrial cancer. She will need an endometrial sampling at some point in the relatively near future. Consults Consult date: 09/29/22 Review of Systems Constitutional Constitutional: Reports as per HPI, Denies fever(s), Denies night sweats, Denies poor appetite and Denies weight loss Eyes Eyes: Reports system reviewed and no additional complaints, except as documented ENT Ears, Nose, Mouth, and Throat: Reports system reviewed and no additional complaints, except as documented Cardiovascular Cardiovascular: Reports as per HPI, Denies chest pain, Reports dyspnea and Reports dyspnea on exertion Respiratory Respiratory: Reports cough, Denies hemoptysis, Denies pain on inspiration, Denies pain with cough, Reports dyspnea and Reports dyspnea on exertion Genitourinary Genitourinary: Reports as per HPI, Reports abnormal vaginal bleeding, Denies difficulty voiding, Reports urinary incontinence, Reports urinary urgency and Denies vaginal discharge Musculoskeletal Musculoskeletal: Reports system reviewed and no additional complaints, except as documented Integumentary/Breasts Skin/Breast: Reports system reviewed and no additional complaints, except as documented Neurologic Neurologic: Reports system reviewed and no additional complaints, except as documented Psychiatric Psychiatric: Reports system reviewed and no additional complaints, except as documented PFSH All Active Problems Pulmonary embolism (Chronic) Thickened endometrium (Acute) Abnormal vaginal bleeding (Acute) Allergic conjunctivitis and rhinitis (Chronic 04/12/18) This was caused by birds and once rid of them, she has no symptoms. Anxiety (Acute) Depressive disorder (Acute) Increased BMI (Acute) Family history of diabetes mellitus in mother (Chronic) Hyperlipidemia (Chronic) Urge incontinence of urine (Chronic) Hyperglycemia (Chronic) Family history of coronary artery disease in father (Chronic) IFG (impaired fasting glucose) (Chronic) Low back pain (Acute) Ankle fracture (Acute) Left knee pain (Acute) HTN (hypertension) (Chronic) Finger stiffness (Acute) Prediabetes (Acute) Right shoulder pain (Acute) Primary osteoarthritis, left shoulder (Chronic) Intra-articular injection: 03/06/2022; 12/05/2021 Medical History Anxiety Benign hypertension Contracture of left shoulder Depressive disorder Tendinitis of long head of biceps brachii of left shoulder Surgical History ANKLE FX (~2005) pin and plate hardware in ankle/leg Excision, Lesion (11/20/16) sebaceous cyst Hx of tonsillectomy Family History Mother , age 94 Essential hypertension Heart disease Hyperlipidemia Stroke Father , age 63 Essential hypertension Heart disease Hyperlipidemia Stroke Lung cancer Throat cancer Sister Diabetes Essential hypertension Brother Essential hypertension Asthma Maternal Grandfather , age 42 Essential hypertension Heart disease Angela Gehrigs disease Paternal Grandfather , in his 60s No problems noted. Maternal Grandmother , Approx age 62-65 Heart disease Stroke Paternal Grandmother , In her 60s Accident - struck by car when walking No problems noted. Son No problems noted. Social History Smoking/Tobacco Use Status: Never Second Hand Exposure: Yes Smoking risk assessment performed?: Yes Alcohol Intake: never Drug use: Never Substance use type: does not use Caregiver/Support person: No Housing: house Communication Needs: None Do you need help understanding health information?: Never Pets and animals: Yes Pets and animals: cat(s), dog(s) and fish Sexually active: No Do you think of yourself as: straight/heterosexual Current gender identity: female What is your relationship status?: How often do you talk on the phone with friends or family?: three or more times per week How often do you get together with friends or relatives?: once per week How often do you attend bahai or yarsanism services?: decline to answer Do you belong to any clubs or organized social groups?: yes Panel score (0-1 are the most socially isolated patients): 2 What type of physical activity do you participate in: walking Duration: < 15 minutes/day Frequency: decline to answer Jenni/Catholic: Mandaeism Special jenni needs: No Seatbelt use: always Helmet use: Yes Helmet use: always Drive intox or ride w/intox regional dedicated truck 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 Resting comfortably in no acute distress, however increased shortness of breath with Const General: cooperative, comfortable, not anxious and not disheveled Nutritional Appearance: obese Orientation: alert, awake and oriented x3 Eyes General: appearance normal, both eyes and all related structures Neck Neck: normal visual inspection, supple and no anterior neck swelling Resp Effort & Inspection: no audible wheezes, no cough and tachypneic Cardio Palpation: normal PMI Rate: tachycardic Rhythm: regular rhythm GI Inspection: normal to inspection, non-distended and obesity Palpation: soft Psych Appearance: grossly normal Mental Status: mental status grossly normal Speech and Movement: speech and movement normal Affect: normal affect Attitude: cooperative Thought Process: normal Results Last Vital Signs Temp 97.0 F L 09/29/22 05:56 Pulse 91 H 09/29/22 08:39 Resp 22 09/29/22 05:56 BP 135/80 09/29/22 08:39 Pulse Ox 97 09/29/22 08:40 Labs Result diagrams: 09/29/22 04:27 09/29/22 08:40 Labs: Laboratory Results - last 24 hr 09/28/22 09/28/22 09/28/22 20:00 20:00 20:00 WBC 20.02 H RBC 5.16 Hgb 14.4 Hct 45.6 MCV 88 MCH 27.9 MCHC 31.6 L RDW 12.8 Plt Count 252 MPV 10.1 Immature Gran % 0.6 Neutrophils % 82.9 Lymphocytes % 10.6 Monocytes % 5.5 Eosinophils % 0.1 Basophils % 0.3 Nucleated RBC % 0.0 Absolute Neutrophils 16.60 H Absolute Lymphocytes 2.12 Absolute Monocytes 1.10 H Absolute Eosinophils 0.02 Absolute Basophils 0.06 PT INR APTT Sodium 141 Potassium 3.3 L Chloride 103 Carbon Dioxide 25.2 Anion Gap 12.8 H BUN 29 H Creatinine 1.4 H Est GFR (CKD-EPI 2020) 40.98 Glucose 231 H Hemoglobin A1c Calcium 9.2 Magnesium 1.7 L Total Bilirubin 0.4 AST 22 ALT 37 Alkaline Phosphatase 105 Troponin I < 50 NT-Pro-B Natriuret Pep Total Protein 7.7 Albumin 3.4 Urine Color Urine Clarity Urine pH Ur Specific [place] Urine Protein Urine Ketones Urine Blood Urine Nitrite Urine Bilirubin Urine Urobilinogen Ur Leukocyte Esterase Urine RBC Urine WBC Ur Epithelial Cells Urine Crystals Urine Bacteria Urine Mucus Ur Culture Indicated? Urine Glucose COVID-19 Source Nasopharynx SARS-CoV-2 (PCR) Negative Influenza Type A (PCR) Negative Influenza Type B (PCR) Negative RSV (PCR) Negative 09/28/22 09/28/22 09/28/22 20:00 20:00 21:07 WBC RBC Hgb Hct MCV MCH MCHC RDW Plt Count MPV Immature Gran % Neutrophils % Lymphocytes % Monocytes % Eosinophils % Basophils % Nucleated RBC % Absolute Neutrophils Absolute Lymphocytes Absolute Monocytes Absolute Eosinophils Absolute Basophils PT 10.2 INR 1.0 APTT 22.8 Sodium Potassium Chloride Carbon Dioxide Anion Gap BUN Creatinine Est GFR (CKD-EPI 2020) Glucose Hemoglobin A1c Calcium Magnesium Total Bilirubin AST ALT Alkaline Phosphatase Troponin I NT-Pro-B Natriuret Pep 7682 H Total Protein Albumin Urine Color Yellow Urine Clarity Cloudy Urine pH 5.5 Ur Specific [place] 1.025 Urine Protein 30 H Urine Ketones Negative Urine Blood Large H Urine Nitrite Negative Urine Bilirubin Negative Urine Urobilinogen 1.0 H Ur Leukocyte Esterase Small H Urine RBC >50 H Urine WBC 3-5 Ur Epithelial Cells Few Urine Crystals Negative Urine Bacteria Few Urine Mucus Negative Ur Culture Indicated? Yes Urine Glucose Negative COVID-19 Source SARS-CoV-2 (PCR) Influenza Type A (PCR) Influenza Type B (PCR) RSV (PCR) 09/29/22 09/29/22 09/29/22 04:27 04:27 04:27 WBC 14.12 H RBC 4.72 Hgb 13.3 Hct 40.8 41.9 MCV 89 MCH 28.2 MCHC 31.7 L RDW 12.9 Plt Count 166 MPV 11.9 H Immature Gran % 0.5 Neutrophils % 73.6 Lymphocytes % 20.1 Monocytes % 5.2 Eosinophils % 0.4 Basophils % 0.2 Nucleated RBC % 0.0 Absolute Neutrophils 10.39 H Absolute Lymphocytes 2.84 Absolute Monocytes 0.73 Absolute Eosinophils 0.06 Absolute Basophils 0.03 PT INR APTT 69.5 H Sodium Potassium Chloride Carbon Dioxide Anion Gap BUN Creatinine Est GFR (CKD-EPI 2020) Glucose Hemoglobin A1c Calcium Magnesium Total Bilirubin AST ALT Alkaline Phosphatase Troponin I NT-Pro-B Natriuret Pep Total Protein Albumin Urine Color Urine Clarity Urine pH Ur Specific [place] Urine Protein Urine Ketones Urine Blood Urine Nitrite Urine Bilirubin Urine Urobilinogen Ur Leukocyte Esterase Urine RBC Urine WBC Ur Epithelial Cells Urine Crystals Urine Bacteria Urine Mucus Ur Culture Indicated? Urine Glucose COVID-19 Source SARS-CoV-2 (PCR) Influenza Type A (PCR) Influenza Type B (PCR) RSV (PCR) 09/29/22 09/29/22 04:27 08:40 WBC RBC Hgb Hct MCV MCH MCHC RDW Plt Count MPV Immature Gran % Neutrophils % Lymphocytes % Monocytes % Eosinophils % Basophils % Nucleated RBC % Absolute Neutrophils Absolute Lymphocytes Absolute Monocytes Absolute Eosinophils Absolute Basophils PT INR APTT Sodium 141 Potassium 3.4 L Chloride 105 Carbon Dioxide 25.5 Anion Gap 10.5 BUN 15 Creatinine 0.9 Est GFR (CKD-EPI 2020) 69.64 Glucose 141 H Hemoglobin A1c 7.2 H Calcium 8.9 Magnesium 2.0 Total Bilirubin AST ALT Alkaline Phosphatase Troponin I < 50 NT-Pro-B Natriuret Pep Total Protein Albumin Urine Color Urine Clarity Urine pH Ur Specific [place] Urine Protein Urine Ketones Urine Blood Urine Nitrite Urine Bilirubin Urine Urobilinogen Ur Leukocyte Esterase Urine RBC Urine WBC Ur Epithelial Cells Urine Crystals Urine Bacteria Urine Mucus Ur Culture Indicated? Urine Glucose COVID-19 Source SARS-CoV-2 (PCR) Influenza Type A (PCR) Influenza Type B (PCR) RSV (PCR)
--- NOTE | 2022-09-29 11:52 | DI.US_ITS ---
Exam(s) US EXTREMITY VENOUS BI EXAM: US EXTREMITY VENOUS BI CLINICAL HISTORY: Bilateral PEs, concern for DVT TECHNIQUE: Grayscale, color, and doppler imaging of the deep venous system of both lower extremities was performed. COMPARISON: US POCUS EXAM from 07/10/2022 FINDINGS: There is no evidence of intraluminal thrombus and there is normal compression and augmentation demons trated within the common femoral veins, femoral veins, and popliteal veins of both lower extremities. In the calves the interrogated veins also exhibit normal compression/ augmentation properties. The greater saphenous veins also appear patent as do the saphenofemoral junctions bilaterally.. Incidentally noted is a Carson cyst on the right side measuring 4.7 by 0.6 x 2.8 cm IMPRESSION: 1. No ultrasound evidence of DVT in either lower extremity. Incidentally noted is a Carson cyst in the right popliteal fossa measuring 4.7 cm length x 0.6 cm x 2 .8 cm DATA REPOSITORY:
--- NOTE | 2022-09-29 12:02 | DI.VRAD_ITS ---
PROCEDURE INFORMATION: Exam: US Duplex Lower Extremity Veins, Bilateral Exam date and time: 09/29/2022 11:24 AM Age: 67 years old Clinical indication: Other: Bilateral pes, concern for dvt TECHNIQUE: Imaging protocol: Real-time Duplex ultrasound of the bilateral extremities with 2-D devi scale, color Doppler flow and spectral waveform analysis with image documentation. Complete exam focused on the bilateral lower extremity veins. COMPARISON: No relevant prior studies available. FINDINGS: Right deep veins: Unremarkable. The common femoral, femoral, proximal profunda femoral and popliteal veins are patent without thrombus. Normal Doppler waveforms. Normal compressibility and/or augmentation response. Right superficial veins: Saphenofemoral junction is patent without thrombus. Left deep veins: Unremarkable. The common femoral, femoral, proximal profunda femoral and popliteal veins are patent without thrombus. Normal Doppler waveforms. Normal compressibility and/or augmentation response. Left superficial veins: Saphenofemoral junction is patent without thrombus. Soft tissues: There is a right Carson's cyst measuring 4.7 x 0.6 x 2.8 cm. IMPRESSION: No evidence of deep vein thrombosis. Right Carson cyst. Dictated and Authenticated by: Jena Velásquez MD. Ordering:MILDRED Stone MD
[2022-09-29] MEDS: Docusate Sodium 100 MG CAP PO (21:27)
[2022-09-29] MEDS: guaiFENesin 600 MG TABCR PO (21:27)
--- NOTE | 2022-09-30 | DI.RAD_ITS ---
Exam(s) XR PORTABLE CHEST AP EXAM: XR PORTABLE CHEST AP CLINICAL HISTORY: ?CHF. TECHNIQUE: 2D digital imaging was performed. COMPARISON: CR CHEST 2 VIEWS PA,LAT from 01/18/2011 FINDINGS: Single AP portable view. Heart size is upper normal. The mediastinum is not widened. Lungs are clear. No infiltrates nor obvious pleural effusions. IMPRESSION: No acute pulmonary findings on this single AP portable view of the chest. Left shoulder reverse prosthesis now evident. DATA REPOSITORY: RADIATION DOSE DELIVERED:
[2022-09-30 04:56] VITALS: O2SAT 95
[2022-09-30 04:57] VITALS: BP 144/73; PULSE 99; O2SAT 93
[2022-09-30] MEDS: Lactated Ringers 1,000 ML 75 ML IV (05:11)
[2022-09-30 05:14] LABS: Abs Immature Grans 0.07 10^3/uL (0.0-0.06); Absolute Basophil Count 0.05 10^3/uL (0.0-0.2); Absolute Eosinophil Count 0.12 10^3/uL (0.0-0.7); Absolute Lymphocyte Count 2.05 10^3/uL (1.2-3.4); Absolute Neutrophil Count 7.16 10^3/uL (1.2-6.7); Basophils % 0.5; Eosinophils % 1.2; HCT 39.1 % (36.0-46.0); HGB 12.8 g/dL (11.2-15.7); Immature Grans % 0.7; MCH 28.6 pg (27.0-33.0); MCHC 32.7 % (32.0-36.0); MCV 87 fL (80-95); MPV 11.4 fL (8.0-11.0); Monocytes % 7.8; Neutrophils % 69.8; Platelet Count 151 10^3/uL (130-400); RBC 4.48 10^6/uL (3.93-5.22); RDW 13.2 % (11.7-14.6); RDW-SD 41.8 fL; WBC 10.25 10^3/uL (4.4-10.8)
[2022-09-30 05:21] LABS: Anion Gap 10.4 mmol/L (3-11); BUN 15 mg/dL (7-18); CO2 23.6 mmol/L (21.0-32.0); Calcium 8.7 mg/dL (8.5-10.1); Chloride 104 mmol/L (98-107); Estimated GFR 61.36 (mL/min/1.73m2); Glucose 143 mg/dL (74-106); Magnesium 1.9 mg/dL (1.8-2.4); Potassium 3.6 mmol/L (3.5-5.1); Sodium 138 mmol/L (136-145)
[2022-09-30 05:40] LABS: PTT Activated 52.6 sec (21.0-27.5)
--- NOTE | 2022-09-30 08:00 | DI.US_ITS ---
APPROVED REPORT EXAM: Comprehensive 2D, Doppler, and color-flow Echocardiogram Patient Location: In-Patient Room/Bed: [id number] Telecommunications Specialist: Lissette Garcia RDCS (AE) Indications: PE, Right heart strain Other Information Study Quality: Fair. Technically limited study due to body habitus. Conclusion Normal left ventricular wall thickness and chamber size. Estimated ejection fraction is 50 to 55%. There are no segmental wall motion abnormalities Right ventricle is mildly dilated and hypocontractile Estimated right ventricular systolic pressure is 43 mmHg There is no significant structural valvular disease Mildly dilated ascending aorta Wall motion Left Ventricle The left ventricle is normal size. Left ventricular systolic function is borderline. There is normal left ventricular wall thickness. No segmental wall motion abnormalities There is no ventricular septa l defect visualized. LVEF is 50-55%. Right Ventricle Right ventricle is mild to moderately dilated. Right ventricle is hypokinetic. Atria The left atrium size is normal. The right atrium size is normal. The interatrial septum is intact wit h no evidence for an atrial septal defect. Aortic Valve The aortic valve is normal in structure. Aortic valve is trileaflet. There is no aortic valvular sten osis. No aortic regurgitation is present. Mitral Valve Mild mitral annular calcification. No evidence of mitral valve stenosis. Trace mitral regurgitation. Tricuspid Valve The tricuspid valve is normal in structure. There is no tricuspid valve stenosis. Trace tricuspid reg urgitation. Pulmonic Valve Pulmonic valve is not well visualized. There is no pulmonic valvular stenosis. There is no pulmonic v alvular regurgitation. Great Vessels The aortic root is normal in size. The ascending aorta is mildly dilated. IVC is normal in size and c ollapses >50% with inspiration. Pericardium There is no pericardial effusion. 2D Dimensions IVSD d PLAX 1.05 cm F: 0.6-1.0 LV Vol A2C d MOD 65.8 mL LVPW d PLAX 1.04 cm F: 0.6 - 1.0 LV Vol A4C d MOD 93.7 mL LVID d PLAX 4.83 cm F: 3.8 - 5.2 LA vol/ BSA A2C s A-L 21.1 mL/m2 LVDs 3.70 cm F: 2.2 - 3.5 LA vol/ BSA A4C s A-L 25.0 mL/m2 Ao Root d 2.83 cm F: 2.7 - 3.3 LA Vol/ BSA Biplane s A-L 23.2 mL/m2 RA Area A4C 10.92 cm2 LA Area A4C s MOD 19.46 cm2 RA Vol/ BSA A4C s A-L 9.9 mL/m2 LA Area A2C s MOD 17.75 cm2 Ao Asc Diam d 3.37 cm F: 2.3 - 3.1 LV EF A4C MOD 45.5 % LV EF Teichholz 46.3 % LV EF A2C MOD 45.5 % LVEF (Rushing's) 44.05 % F: 54 - 74 LV EF Biplane MOD 44.1 % LV Volume 56.05 mL F: 46 - 106 SV 34.63 mL LV Volume Index 23.85 mL/m2 F: 29 - 61 SV Index 14.75 mL/m2 LV Vol Biplane MOD 78.6 mL FS 23.15 % M-Mode TAPSE 1.27 cm (M/F) >1.7 LV Diastology MV E' medial 0.062 (>0.07 m/s) E/A Ratio 0.6 LV E/e MED 8.65 (<14) MV E Vmax 0.53 (0.4-1.3 m/s) MV E' lateral 0.070 (>0.1 m/s) MV A Vmax 0.95 (0.4-1.3 m/s) LV E/e LAT 7.55 (<14) MV E/A Ratio 0.53 MV E/E' medial 8.65 MV E/E' lateral 7.57 Aortic Valve LVOT Area 3.19 cm2 AoV Area Vmax 2.65 cm2 LVOT Vmax 1.18 m/s AoV Area/ BSA (Vmax) 1.13 cm2/m2 LVOT Mean Fadi. 0.73 m/s ELIZABETH Mean Fadi. 2.34 cm2 LVOT Peak Grad 5.6 mmHg ELIZABETH Mean Fadi. Index 1.00 cm2/m2 LVOT Mean Grad 2.6 mmHg LVOT VTI 0.219 m LVOT Diam s 2.00 cm AoV Vmax 1.42 m/s Velocity Ratio 0.83 AoV Mean Fadi. 0.99 m/s AoV Peak Grad 8.0 mmHg LVOT SV 70.02 mL AoV Mean Grad 4.4 mmHg AoV VTI 0.234 m AoV Area VTI 3.00 cm2 AoV Area/ BSA (VTI) 1.28 cm/m2 Mitral Valve MV DT 281 (160-240 msec) MV PHT 82 msec MV Area PHT 2.70 cm2 MV VTI 0.226 m MV Area VTI 3.10 (4.0-6.0 cm2) Pulmonary Valve PV Vmax 0.83 (0.5-1.5 m/s) RVOT Peak Gr. 1.12 mmHg PV Peak Grad 2.8 mmHg RVOT Mean Gr. 0.65 mmHg PV Mean Grad 1.9 mmHg RVOT VTI 0.112 m PV VTI 0.162 m RVOT Vmax 0.53 m/s Tricuspid Valve TR Peak Grad 40.3 mmHg TR Vmax 3.18 m/s RA Pressure 3.00 mmHg RVSP (TR) 43.4 mmHg
--- NOTE | 2022-09-30 08:43 | PDOC.CMIN ---
- If Service Date Differs Date of service: 09/30/22 Time of Service: 08:43 Care Management Initial Assess REASON FOR HOSPITALIZATION:: PE, uterine bleeding PAST MEDICAL HISTORY/PAST SURGICAL HISTORY:: All Active Problems . Pulmonary embolism (Chronic). Thickened endometrium (Acute). Abnormal vaginal bleeding (Acute). Allergic conjunctivitis and rhinitis (Chronic 04/12/18). This was caused by birds and once rid of them, she has no symptoms. Anxiety (Acute). Depressive disorder (Acute). Increased BMI (Acute). Family history of diabetes mellitus in mother (Chronic). Hyperlipidemia (Chronic). Urge incontinence of urine (Chronic). Hyperglycemia (Chronic). Family history of coronary artery disease in father (Chronic). IFG (impaired fasting glucose) (Chronic). Low back pain (Acute). Ankle fracture (Acute). Left knee pain (Acute). HTN (hypertension) (Chronic). Finger stiffness (Acute). Prediabetes (Acute). Right shoulder pain (Acute). Primary osteoarthritis, left shoulder (Chronic). Intra-articular injection: 03/06/2022; 12/05/2021. Medical History . Anxiety. Benign hypertension. Contracture of left shoulder. Depressive disorder. Tendinitis of long head of biceps brachii of left shoulder. Surgical History . ANKLE FX (~2005). pin and plate hardware in ankle/leg. Excision, Lesion (11/20/16). sebaceous cyst. Hx of tonsillectomy PREVIOUS FUNCTIONAL STATUS/SOCIAL/FAMILY SUPPORTS:: Maria lives in [place], [place] with her son and his family. He is her only child. Maria came to stay with them in June following shoulder surgery. 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 She has been out of work recently due to having had surgery, followed by respiratory illnesses. She is independent at baseline and does not receive any community services. CURRENT FUNCTIONAL STATUS:: Maria was sitting up in bed when CM met with her. She was very pleasant and engaged easily with CM, well known to her from having worked together at [facility]. Maria shared that she is in the process of exploring the possibility of selling her single family home in [place] and building a tiny house on her son's property. She has done some preliminary work and is hopeful this can take place. Maria loves animals and has 6 dogs and 2 exotic rabbits and would have more land and fewer restrictions where her son lives. Maria also has several hobbies which include sewing and entering her dogs in competitions. 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 ADVANCE DIRECTIVES:: on file. Son Yfn and [id number] Divya [employer] Has patient been provided with info about the portal/API?: Yes Did the patient sign up for the portal?: Yes (previously) CODE STATUS:: Full Code INSURANCE COVERAGE / FINANCIAL ISSUES:: [employer] CURRENT HOME/COMMUNITY SERVICES/EQUIPMENT:: none PRIMARY CARE PHYSICIAN:: Arley Figueroa POTENTIAL DISCHARGE NEEDS:: Follow up with PCP and plan of care PATIENT/FAMILY EDUCATION NEEDS:: Review of discharge instructions, limitations, follow up plan, medications, discuss Ask Me Three TRANSPORTATION:: via private vehicle with family PLAN:: Maria will likely be discharged hoome with no new servicres when medically cleared by provider. She will follow up with her community providers and plan of care and transport with family. CM will follow and asses for ongoing discharge concerns.
[2022-09-30] MEDS: Docusate Sodium 100 MG CAP PO ×2 (08:53→19:48)
[2022-09-30] MEDS: Norethindrone 5 MG TAB PO ×2 (08:53→19:48)
[2022-09-30] MEDS: guaiFENesin 600 MG TABCR PO ×2 (08:53→19:48)
[2022-09-30 08:58] VITALS: BP 129/60; PULSE 87
--- NOTE | 2022-09-30 09:35 | DI.US_ITS ---
Exam(s) US UPPER EXTREMITY VENOUS LT US UPPER EXTREMITY VENOUS RT EXAM: US UPPER EXTREMITY VENOUS LT CLINICAL HISTORY: Bilateral PEs, concern for DVTs TECHNIQUE: GRAYSCALE, COLOR, DOPPLER IMAGING OF THE VENOUS SYSTEM OF THE UPPER EXTREMITY-BILATERAL COMPARISON: None FINDINGS: BILATERAL STUDY: Basilic vein: Patent. Normal color-flow and normal compression and augmentation properties. Brachial vein(s):Patent. Normal color flow. Normal compression and augmentation properties. Cephalic vein:Patent. Normal color flow. Normal compression and augmentation properties. Axillary vein: Patent. Normal color flow. Normal compression and augmentation properties. Visualized subclavian vein: Patent. No obvious intraluminal thrombus. IMPRESSION: 1. No evidence of venous thrombosis in the BILATERAL upper extremities. 2. DATA REPOSITORY:
[2022-09-30] MEDS: Metoprolol CR 100 MG TABCR 200 MG PO (09:51)
--- NOTE | 2022-09-30 09:58 | W.PM.PROGNOT ---
Date of Service Date of service: 09/30/22 Time of Service: 09:58 Assessment and Plan Assessment and plan (1) Pulmonary embolism: Status: Chronic Assessment and plan: bilateral PEs. Etiology: ?due to recent ortho surgery vs possible uterine malignancy. Dopplers of all 4 extremities are negative. Since no endometrial biopsy will be happening on this admission, will switch to a DOAC today. Suggestion of R heart strain on CTA: Await echo. [place] [facility] [place] as the patient is hemodynamically stable and not requiring oxygen, it is not felt that a transfer to a tertiary care facility is indicated. Continue to monitor on tele. Would need an exercise oximetry prior to discharge. Encourage IS/a capella. Monitor for hemoptysis. Uterine bx as outpatient. (2) Abnormal vaginal bleeding: Status: Acute Assessment and plan: Continue agestin. See #3 Tolerating anticoagulation. (3) Thickened endometrium: Status: Acute Assessment and plan: Planned for endometrial biopsy tomorrow at bedside. Concern for possible uterine cancer. (4) Acute sinusitis: Status: Acute Assessment and plan: Start nasonex and augmentin. (5) Newly diagnosed diabetes: Status: Acute Assessment and plan: C/s DM education Cover with SSI; carb consistent diet (6) Hypokalemia: Status: Resolved Assessment and plan: Recheck in am (7) Discharge planning issues: Status: Acute Assessment and plan: Full code Anticipate discharge home tomorrow. Discussed with Dr Chavira. No indication for transfer to a tertiary care facility, [place] [facility] [place] Velez[place] Subjective Subjective Interval history since last seen: C/o headache and nasal congestion. Does have yellow nasal discharge and thinks she now has a sinus infection. C/o slight CP on inspiration. SOB worse at rest today. No nausea. KAVYA overnight. Not requiring O2. Concerned about having to slow down. Endometrial bx is now planned to be as outpatient. Exam Narrative Exam Narrative: General: Pleasant obese female who is A&Ox3, does seem to be slightly more dyspneic HEENT: EOMI, MMM Heart: RRR, no m/r/g Lungs: CTAB, slightly more dyspneic than yesterday Abdomen: soft, nontender, nondistended Extremities: no edema BLEs Objective Last Vital Signs Temp 37.0 C 09/29/22 16:46 Pulse 87 09/30/22 08:58 Resp 20 09/29/22 16:46 BP 129/60 09/30/22 08:58 Pulse Ox 93 09/30/22 04:57 Laboratory Results - last 24 hr 09/30/22 09/30/22 09/30/22 04:34 04:34 04:34 WBC 10.25 RBC 4.48 Hgb 12.8 Hct 39.1 MCV 87 MCH 28.6 MCHC 32.7 RDW 13.2 Plt Count 151 MPV 11.4 H Immature Gran % 0.7 Neutrophils % 69.8 Lymphocytes % 20.0 Monocytes % 7.8 Eosinophils % 1.2 Basophils % 0.5 Nucleated RBC % 0.0 Absolute Neutrophils 7.16 H Absolute Lymphocytes 2.05 Absolute Monocytes 0.80 Absolute Eosinophils 0.12 Absolute Basophils 0.05 APTT 52.6 H Sodium 138 Potassium 3.6 Chloride 104 Carbon Dioxide 23.6 Anion Gap 10.4 BUN 15 Creatinine 1.0 Est GFR (CKD-EPI 2020) 61.36 Glucose 143 H Calcium 8.7 Magnesium 1.9
[2022-09-30] MEDS: Amoxicillin 875/Clav. 125 TAB PO ×2 (11:14→19:48)
[2022-09-30] MEDS: Apixaban 5 MG TAB 10 MG PO ×2 (11:15→19:48)
[2022-09-30 11:20] VITALS: BP 134/66; PULSE 76
--- NOTE | 2022-09-30 12:15 | W.PM.PROGNOT ---
Date of Service Date of service: 09/30/22 Time of Service: 12:16 Assessment and Plan Assessment and plan (1) Pulmonary embolism: Status: Chronic Assessment and plan: Acute bilateral pulmonary embolism in process of being transitioned from heparin to oral anticoagulation. Increased work of breathing. (2) Thickened endometrium: Status: Acute Assessment and plan: Patient has a significantly thickened endometrium which would warrant sampling, along with postmenopausal bleeding. My recommendation would be for endometrial sampling when her respiratory status allows. At this point laying flat would be a challenge. I would anticipate endometrial biopsy in our office either at the time of discharge, or in follow-up approximately 1 week after discharge. Further treatment will be based on her pathology. (3) Abnormal vaginal bleeding: Status: Acute Subjective Subjective Interval history since last seen: Patient is seen and examined this morning and having increased work of breathing. She is in the process of being converted from heparin to oral anticoagulation. She did have an echocardiogram performed today. Over the last 24 hours, her bleeding has been minimal, and her hemoglobin is stable. She is currently using Aygestin 5 mg twice daily. I had a conversation with hospitalist today regarding sampling of her endometrium. As it relates to her current care, her respiratory condition is far more significant than her vaginal bleeding at this point. That we do need a diagnosis and endometrial sampling, my recommendation would be to stabilize her pulmonary and respiratory function, convert her to oral anticoagulation, and perform endometrial sampling potentially prior to discharge in our office, or in the post discharge., When her respiratory status improves. We may be able to accomplish this with an office procedure rather than a procedure in the operating room. She would not need to be stopped from her anticoagulation or bridged in any way at that point. Exam Narrative Exam Narrative: Patient seen while in the intensive care unit. Resting comfortably in no acute distress, however increased shortness of breath with Const General: cooperative, comfortable, not anxious and not disheveled Nutritional Appearance: obese Orientation: alert, awake and oriented x3 Eyes General: appearance normal, both eyes and all related structures Neck Neck: normal visual inspection, supple and no anterior neck swelling Resp Effort & Inspection: no audible wheezes, no cough and tachypneic Cardio Palpation: normal PMI Rate: regular rate and tachycardic Rhythm: regular rhythm GI Inspection: normal to inspection, non-distended and obesity Palpation: soft Psych Appearance: grossly normal Mental Status: mental status grossly normal Speech and Movement: speech and movement normal Affect: normal affect Attitude: cooperative Thought Process: normal Objective Last Vital Signs Temp 98.6 F 09/29/22 16:46 Pulse 87 09/30/22 08:58 Resp 20 09/29/22 16:46 BP 129/60 09/30/22 08:58 Pulse Ox 93 09/30/22 04:57 Laboratory Results - last 24 hr 09/30/22 09/30/22 09/30/22 04:34 04:34 04:34 WBC 10.25 RBC 4.48 Hgb 12.8 Hct 39.1 MCV 87 MCH 28.6 MCHC 32.7 RDW 13.2 Plt Count 151 MPV 11.4 H Immature Gran % 0.7 Neutrophils % 69.8 Lymphocytes % 20.0 Monocytes % 7.8 Eosinophils % 1.2 Basophils % 0.5 Nucleated RBC % 0.0 Absolute Neutrophils 7.16 H Absolute Lymphocytes 2.05 Absolute Monocytes 0.80 Absolute Eosinophils 0.12 Absolute Basophils 0.05 APTT 52.6 H Sodium 138 Potassium 3.6 Chloride 104 Carbon Dioxide 23.6 Anion Gap 10.4 BUN 15 Creatinine 1.0 Est GFR (CKD-EPI 2020) 61.36 Glucose 143 H Calcium 8.7 Magnesium 1.9
--- NOTE | 2022-09-30 13:24 | DM INPTCON_ITS ---
Date of service: 09/30/22 Time of Service: 13:24 Diabetes Inpatient Consult Reason for Visit: DM2 DESCRIPTION/ASSESSMENT: Attempted to visit with Maria twice today but otherwise occupied. 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 Admitted with PE, hypokalemia and abnormal vaginal bleeding. Being worked up for possible uterine malignancy. Previously has been trained on CGMs and diet by director underwriter sales. Most recent A1C indicates Dm2 diagnosis (7.4%). Has been prediabetic on and off for several years. BMI indicates morbid obesity but has been able to lose some weight in recent years. Most likely will benefit from outpatient diabetes and weight loss education. PLAN: Will follow up with Maria when available. Time Spent in Nutritional Counseling and Treatment: 0
[2022-09-30 15:07] VITALS: BP 130/56; PULSE 68
--- NOTE | 2022-09-30 15:29 | NUR.NOTE ---
Patient walked 127 feet around ICU High heart rate of 101 Low heart rate 86 High oxygen at 96% ORA Low oxygen at 93% ORA Patient stopped once for approximately a minute and a half to catch breath Nursing Note:
[2022-09-30 17:35] VITALS: BP 144/69; PULSE 78
[2022-09-30] MEDS: traMADol 50 MG TAB 100 MG PO (18:24)
[2022-10-01 06:17] LABS: Abs Immature Grans 0.04 10^3/uL (0.0-0.06); Absolute Basophil Count 0.04 10^3/uL (0.0-0.2); Absolute Eosinophil Count 0.18 10^3/uL (0.0-0.7); Absolute Lymphocyte Count 2.14 10^3/uL (1.2-3.4); Absolute Monocyte Count 0.78 10^3/uL (0.1-0.8); Absolute Neutrophil Count 6.07 10^3/uL (1.2-6.7); Basophils % 0.4; Eosinophils % 1.9; HCT 38.4 % (36.0-46.0); HGB 12.3 g/dL (11.2-15.7); Immature Grans % 0.4; Lymphocytes % 23.1; MCV 88 fL (80-95); MPV 10.5 fL (8.0-11.0); Monocytes % 8.4; Neutrophils % 65.8; Platelet Count 201 10^3/uL (130-400); RBC 4.39 10^6/uL (3.93-5.22); RDW 13.3 % (11.7-14.6); RDW-SD 42.7 fL; WBC 9.25 10^3/uL (4.4-10.8)
[2022-10-01 06:29] LABS: Anion Gap 9.6 mmol/L (3-11); BUN 16 mg/dL (7-18); CO2 24.4 mmol/L (21.0-32.0); CREATININE 0.9 mg/dL (0.55-1.02); Calcium 8.7 mg/dL (8.5-10.1); Chloride 104 mmol/L (98-107); Estimated GFR 69.64 (mL/min/1.73m2); Glucose 124 mg/dL (74-106); Magnesium 1.9 mg/dL (1.8-2.4); Potassium 3.7 mmol/L (3.5-5.1); Sodium 138 mmol/L (136-145)
[2022-10-01 06:33] LABS: PTT Activated 26.8 sec (21.0-27.5)
[2022-10-01 07:56] VITALS: BP 134/87; PULSE 79; TEMP 36.6
[2022-10-01] MEDS: Metoprolol CR 100 MG TABCR 200 MG PO (08:06)
[2022-10-01] MEDS: Apixaban 5 MG TAB 10 MG PO (08:07)
[2022-10-01] MEDS: Docusate Sodium 100 MG CAP PO (08:07)
[2022-10-01] MEDS: Torsemide 20 MG TAB PO (08:08)
[2022-10-01] MEDS: Amoxicillin 875/Clav. 125 TAB PO (08:08)
[2022-10-01] MEDS: Spironolactone 25 MG TAB 12.5 MG PO (08:08)
[2022-10-01] MEDS: Norethindrone 5 MG TAB PO (08:09)
[2022-10-01] MEDS: guaiFENesin 600 MG TABCR PO (08:09)
--- NOTE | 2022-10-01 08:16 | PDOC.CMPRO ---
- If Service Date Differs Date of service: 10/01/22 Time of Service: 08:16 Care Management Progress Note S/O: A: Maria is a 67 year old woman admitted on 09/28/22 with PEs and uterine bleeding P:Maria will likely be discharged home with no new services when medically cleared by provider. She will follow up with her community providers and plan of care and transport with family. CM will follow and asses for ongoing discharge concerns.
[2022-10-01 08:56] VITALS: PULSE 104; PULSE 83; RESP 12; RESP 16; O2SAT 94; O2SAT 96
--- NOTE | 2022-10-01 10:29 | W.PM.DS.N ---
Date of service: 10/01/22 Time of Service: 10:29 DS: Diagnosis Discharge Diagnosis (1) Pulmonary embolism: Status: Chronic (2) Right ventricular dysfunction: Status: Acute (3) Pulmonary hypertension: Status: Acute Asessment and Plan: RVSP 43 mmHg (4) Abnormal vaginal bleeding: Status: Acute Asessment and Plan: For outpatient follow up with DUB ROOM ENGINEER (5) Thickened endometrium: Status: Acute (6) Newly diagnosed diabetes: Status: Acute (7) Acute sinusitis: Status: Acute (8) Hypokalemia: Status: Resolved (9) Left adrenal mass: Status: Acute (10) Lung nodule: Status: Acute Discharge Plan Disposition Patient Disposition: Home Condition: Improving Discharge Details Reason For Visit: PE,Uterine Bleeding Admit Date/Time: 09/28/22 23:35 Admit Provider: Waqas Pearson Attending Provider: Waqas Pearson Primary Care Provider: Arley Figueroa Hospital Course Hospital Course: Ms Bell is a 67 year old female with PMHx of L shoulder replacement on 07/10/22, as well as h/o prediabetes, hypertension, obesity with BMI of 44.5 kg/m2 who was a patient on [facility] hospitalist service from 09/28/22 until 10/01/22 for bilateral PEs with right heart strain as well as dysfunctional uterine bleeding with evidence of thickened endometrium and suspicion for a possible endometrial malignancy (not yet biopsied as of the time of this discharge). The patient was mildly tachycardic and tachypneic, but not hypotensive nor orthostatic and not hypoxic. She was started on heparin gtt given her uterine bleeding and DUB ROOM ENGINEER was consulted. The case was reviewed with [facility] [place] team who felt that the patient did not require a more advanced intervention than anticoagulation given her hemodynamic stability and the fact that she did not require oxygen. They did recommend obtaining an echocardiogram, which revealed RVSP of 43 mmHg and a mildly dilated and hypocontractile right ventricle. LVEF was 50-55% without segmental wall motion abnormalities. She had venous dopplers of all 4 of her extremities, which were negative for a DVT. She was evaluated by DUB ROOM ENGINEER who started aygestin, cleared the patient to be transitioned to a DOAC given that her bleeding on heparin drip was minimal and that her endometrial biopsy is now been planned as outpatient. The patient is feeling better today and is well enough to go home. She is being referred to outpatient pulmonology, hematology, DUB ROOM ENGINEER, and PCP. Additionally, the patient was given a new diagnosis of diabetes with her A1C of 7.2. She is being referred to outpatient agricultural extension educator. She is being discharged with a prescription for metformin and a Aleisha 2 CGM. The patient does have sinusitis, for which she was started on augmentin and nasonex. The patient was incidentally found to have a R lower lobe lung nodule and a left adrenal mass. These will need to be followed up as outpatient. PCP could consider the presence of the adrenal mass in treatment of the patient's hypertension. Care for patient as well as completion of her discharge summary on day of discharge took 60 minutes. Home Meds and New Rx's Prescriptions: New amoxicillin-pot clavulanate 875-125 mg Tablet 1 tab PO BID Qty: 12 0RF Eliquis 5 mg Tablet See Rx Instructions .ROUTE .COMPLEX Qty: 68 0RF Rx Instructions: 10 mg (2 tabs) by mouth twice daily x 11 doses, then 5 mg by mouth twice daily guaifenesin [Mucus Relief ER] 600 mg Tablet Extended Release 12hr 600 mg PO BID PRN PRN (Reason: cough) Qty: 30 0RF mometasone 50 mcg/actuation [place],Non-Aerosol 2 spray NS BID Qty: 17 0RF norethindrone acetate 5 mg Tablet 5 mg PO BID Qty: 60 0RF tramadol 50 mg Tablet 50 - 100 mg PO Q6H PRN PRNQty: 20 0RF docusate sodium [Colace] 100 mg Capsule 100 mg PO BID Qty: 60 0RF lisinopril 5 mg tablet 5 mg PO DAILY Qty: 30 0RF metformin 500 mg tablet 500 mg PO BID Qty: 60 0RF (DME) FreeStyle Aleisha 2 [place] Misc See Rx Instructions .Route Qty: 1 0RF Rx Instructions: As directed (DME) FreeStyle Aleisha 2 Sensor Kit See Rx Instructions .Route Qty: 2 0RF Rx Instructions: As directed Continued metoprolol succinate 200 mg tablet extended release 24 hr 200 mg PO DAILY Qty: 90 4RF spironolactone 25 mg tablet 12.5 mg PO DAILY Qty: 90 3RF torsemide 10 mg tablet 10 mg PO .every 2 days Qty: 45 2RF Discontinued lisinopril 40 mg tablet 40 mg PO DAILY Qty: 90 3RF Discharge Instructions Instructions: Amoxicillin/Clavulanate Potassium (By mouth), Metformin (By mouth), Norethindrone (By mouth), Apixaban (By mouth), Abnormal (Dysfunctional) Uterine Bleeding (DC), Pulmonary Embolism (DC), Rhinosinusitis (DC), Diabetes and Nutrition (DC) Additional Instructions: Return to the hospital with any fever, worsening bleeding, chest pain, or worsening shortness of breath. Monitor your blood sugars with a continuous glucose monitor. Follow up with your PCP, with DUB ROOM ENGINEER, pulmonlogy, and hematology. Referrals: HEMATOLOGY/ONC,[facility] [OTHER] - (bilateral PE) Arley Figueroa RECRUITING ASSISTANT [Primary Care Provider] - Patty Barillas MD [[facility] STAFF PHYSICIAN] - (B PE with right heart strain) Cathy Chavira DO [OSTEOPATHIC DOCTOR] - Trinity Mario RDN, TERRY [DIALYSIS BIOMED TECHNICIAN] - Activity:: Activity as Tolerated Equipment/Supplies:: No Equipment Needed Diet:: Consistent carb heart healthy Discharge Orders Discharge Orders: Discharge Order (Routine); Ordered 10/01/22 Ordered By: Bertha Fontanez DS: Summary Time Spent with Patient providing and/or coordinating discharge services: Greater than 30 minutes Status at Discharge Functional status at discharge: independent ambulation Overall status at discharge: patient is progressing back to baseline Mental Status: mental status grossly normal Speech and Movement: speech and movement normal Mood: congruent mood Affect: normal affect Exam Narrative Exam Narrative: General: Pleasant obese female who is A&Ox3, Looks better better today HEENT: EOMI, MMM Heart: RRR, no m/r/g Lungs: CTAB, less dyspneic than yesterday, does look dyspneic on exertion (not requiring oxygen). Abdomen: soft, nontender, nondistended Extremities: no edema BLEs Psych Mental Status: mental status grossly normal Speech and Movement: speech and movement normal Mood: congruent mood Affect: normal affect DS: Data Vitals/I&O Vitals and I&O: Vital Signs Temperature 36.6 C 10/01/22 07:56 Temperature Source Temporal Artery Scan 10/01/22 07:56 Pulse 79 10/01/22 07:56 Pulse Rhythm Regular 10/01/22 07:45 Pulse 95 H 09/29/22 02:01 Respiratory Rate 20 09/29/22 16:46 Respiratory Effort 10/01/22 07:45 Respiratory Depth Normal 10/01/22 07:45 Respiratory Pattern Normal 10/01/22 07:45 Blood Pressure 134/87 10/01/22 07:56 Blood Pressure Mean 96 10/01/22 07:56 Blood Pressure Position Sitting 09/28/22 19:22 Pulse Oximetry 93 09/30/22 04:57 Oxygen Delivery Method Room Air 10/01/22 07:56 Oxygen Flow Rate 0 10/01/22 07:56 Pain Level 1 10/01/22 07:56 Comment 09/29/22 16:46 Intake & Output 09/30/22 09/30/22 10/01/22 11:59 23:59 11:59 Intake Total 2108.05 / 3108.05 1000 / 3108.05 250 / 250 Output Total 175 / 1525 1350 / 1525 350 / 350 Balance 1933.05 / 1583.05 -350 / 1583.05 -100 / -100 Weight 133.5 kg 129 kg Intake: IV 1628.05 / 1628.05 Oral 480 / 1480 1000 / 1480 250 / 250 Output: Urine 175 / 1525 1350 / 1525 350 / 350 Other: Urine Color [place] Dark [place] Light Maricruz [place] Urine Appearance Hematuria Hematuria Cloudy Clots Urine Odor Normal Normal Normal Comment Unable to collect amount of urine due to pad falling in commode and urine collecting in pad. bucket of urine fell out of bedside commode 150 was what was left in bucket Voiding Methods Bedside Commode Bedside Commode Bedside Commode Diaper Incontinent Data Completed and Pending Completed studies during hospitalization [Text1]: CT chest/abdomen/pelvis 09/28/22: 1. Is positive for the presence of extensive bilateral pulmonary emboli and there is evidence of right heart strain..? No evidence of pulmonary infarction.? No evidence of aortic dissection.? No pericardial effusion.? No pleural effusions. 2. There is a small 6 millimeter nodule in the right lower lobe which will require appropriate imaging follow-up. 3. There is a left adrenal mass measuring 3 x 2.7 x 2.6 cm which will require appropriate follow-up.? No findings in the opposite-right adrenal gland. 4. There is a 5 cm probable cyst in the right kidney.? However, this exhibits Hounsfield units higher than a typical cyst and should be further investigated with ultrasound. 5. Significantly abnormal thickened endometrium, malignant until proven otherwise.? Appropriate referral for endometrial biopsy is recommended. 6.? There is sigmoid diverticulosis but no evidence of acute diverticulitis. US venous BLE's 09/29/22: 1.? No ultrasound evidence of DVT in either lower extremity. ?Incidentally noted is a [place] cyst in the right popliteal fossa measuring 4.7 cm length x 0.6 cm x 2.8 cm CXR 09/30/22: No acute pulmonary findings on this single AP portable view of the chest. Left shoulder reverse prosthesis now evident. Echo 09/30/22: Normal left ventricular wall thickness and chamber size.? Estimated ejection fraction is 50 to 55%.? There are no segmental wall motion abnormalities Right ventricle is mildly dilated and hypocontractile Estimated right ventricular systolic pressure is 43 mmHg There is no significant structural valvular disease Mildly dilated ascending aorta US venous BUEs 09/30/22: 1.? No evidence of venous thrombosis in the BILATERAL upper extremities. Labs on day of discharge: Labs from last 24 hours 10/01/22 10/01/22 10/01/22 05:46 05:46 05:46 WBC 9.25 RBC 4.39 Hgb 12.3 Hct 38.4 MCV 88 MCH 28.0 MCHC 32.0 RDW 13.3 Plt Count 201 MPV 10.5 Immature Gran % 0.4 Neutrophils % 65.8 Lymphocytes % 23.1 Monocytes % 8.4 Eosinophils % 1.9 Basophils % 0.4 Nucleated RBC % 0.0 Absolute Neutrophils 6.07 Absolute Lymphocytes 2.14 Absolute Monocytes 0.78 Absolute Eosinophils 0.18 Absolute Basophils 0.04 APTT 26.8 Sodium 138 Potassium 3.7 Chloride 104 Carbon Dioxide 24.4 Anion Gap 9.6 BUN 16 Creatinine 0.9 Est GFR (CKD-EPI 2020) 69.64 Glucose 124 H Calcium 8.7 Magnesium 1.9 Preliminary micro results at discharge 09/28/22 21:07 Urine Culture - Preliminary Urine - Reflex from Ua Gram Positive Kimberli,Mixed Gram Negative Kimberli,Mixed PFSH All Active Problems (Updated 10/01/22 @ 10:59 by Bertha Fontanez MD) Pulmonary hypertension (Acute) Right ventricular dysfunction (Acute) Lung nodule (Acute) Left adrenal mass (Acute) Acute sinusitis (Acute) Discharge planning issues (Acute) Newly diagnosed diabetes (Acute) Pulmonary embolism (Chronic) Thickened endometrium (Acute) Abnormal vaginal bleeding (Acute) Allergic conjunctivitis and rhinitis (Chronic 04/12/18) This was caused by birds and once rid of them, she has no symptoms. Anxiety (Acute) Depressive disorder (Acute) Increased BMI (Acute) Family history of diabetes mellitus in mother (Chronic) Hyperlipidemia (Chronic) Urge incontinence of urine (Chronic) Hyperglycemia (Chronic) Family history of coronary artery disease in father (Chronic) IFG (impaired fasting glucose) (Chronic) Low back pain (Acute) Ankle fracture (Acute) Left knee pain (Acute) HTN (hypertension) (Chronic) Finger stiffness (Acute) Prediabetes (Acute) Right shoulder pain (Acute) Primary osteoarthritis, left shoulder (Chronic) Intra-articular injection: 03/06/2022; 12/05/2021 Medical History Anxiety Benign hypertension Contracture of left shoulder Depressive disorder Tendinitis of long head of biceps brachii of left shoulder Surgical History ANKLE FX (~2005) pin and plate hardware in ankle/leg Excision, Lesion (11/20/16) sebaceous cyst Hx of tonsillectomy Family History Mother , age 94 Essential hypertension Heart disease Hyperlipidemia Stroke Father , age 63 Essential hypertension Heart disease Hyperlipidemia Stroke Lung cancer Throat cancer Sister Diabetes Essential hypertension Brother Essential hypertension Asthma Maternal Grandfather , age 42 Essential hypertension Heart disease Angela Gehrigs disease Paternal Grandfather , in his 60s No problems noted. Maternal Grandmother , Approx age 62-65 Heart disease Stroke Paternal Grandmother , In her 60s Accident - struck by car when walking No problems noted. Son No problems noted. Social History Smoking/Tobacco Use Status: Never Second Hand Exposure: Yes Smoking risk assessment performed?: Yes Alcohol Intake: never Drug use: Never Substance use type: does not use Caregiver/Support person: No Housing: house Communication Needs: None Do you need help understanding health information?: Never Pets and animals: Yes Pets and animals: cat(s), dog(s) and fish Sexually active: No Do you think of yourself as: straight/heterosexual Current gender identity: female What is your relationship status?: How often do you talk on the phone with friends or family?: three or more times per week How often do you get together with friends or relatives?: once per week How often do you attend sikh or hinduism services?: decline to answer Do you belong to any clubs or organized social groups?: yes Panel score (0-1 are the most socially isolated patients): 2 What type of physical activity do you participate in: walking Duration: < 15 minutes/day Frequency: decline to answer Jenni/Sabianist: Gnosticist Special jenni needs: No Seatbelt use: always Helmet use: Yes Helmet use: always Drive intox or ride w/intox vibratory pile driver: No Do you feel safe at home: Yes Do you feel safe in your relationship?: Yes
--- NOTE | 2022-10-01 13:24 | PDOC.CMDIS ---
- If Service Date Differs Date of service: 10/01/22 Time of Service: 13:24 LACE Index Scoring Tool - Questions: Length of Stay (in days): 2 Acuity (Admit via E.D.?): Yes E.D. Visits: 1 - Answers: Total Score: 6 Risk of Readmission: Low Risk Care Management Discharge Reason for Hospitalization: PE, uterine bleeding Discharge Plan: Maria will be discharged home with no new services. She will follow up with her community providers and plan of care and transport with family. Patient/Family Education Needs: Review of discharge instructions, limitations, follow up plan, medications, discuss Ask Me Three
== END 2022-10-01 13:21 | disposition home or self-care (01) | DRG 176 ==
LOC: ER 09-29 00:30 → ICU 09-29 00:56
PROVIDERS: Internal Medicine; Physician Assistant; Admitting Provider General Practice; Emergency Provider Student in an Organized Health Care Education/Training Program; PCP Nurse Practitioner Family; Visit Provider General Practice
DX: I26.99 Other pulmonary embolism without acute cor pulmonale (principal); Z68.41 Body mass index [BMI] 40.0-44.9, adult; E66.9 Obesity, unspecified; I10 Essential (primary) hypertension; E78.5 Hyperlipidemia, unspecified; F41.9 Anxiety disorder, unspecified; F32.A Depression, unspecified; N93.8 Other specified abnormal uterine and vaginal bleeding; R93.89 Abnormal findings on diagnostic imaging of other specified body structures; N39.41 Urge incontinence; M54.50 Low back pain, unspecified; M19.011 Primary osteoarthritis, right shoulder; E11.65 Type 2 diabetes mellitus with hyperglycemia; E87.6 Hypokalemia; Z96.612 Presence of left artificial shoulder joint; I51.89 Other ill-defined heart diseases; J01.90 Acute sinusitis, unspecified; R91.1 Solitary pulmonary nodule; E27.9 Disorder of adrenal gland, unspecified
CPT/HCPCS: 36415; 71275; 74177; 80048; 80053; 87637; 93005; 94618; 96361; 96365; 96366; 96375; 96376; 99291; 71045; 81003; 81015; 83036; 83735; 83880; 84484; 85014; 85025; 85610; 85730; 87086; 93010; 93306; 93970; 93971; 94667; 99222; 99233; 99239; J0131; J3490

== ENCOUNTER 2022-10-08 16:25 | Outpatient (REF) | payer OTHER, SELFPAY ==
--- NOTE | 2022-10-08 13:20 | ENDOMET_PTH ---
PATIENT: Maria Bell LOC: N U#:[id number] AGE/SX: 67/F ROOM: RE10/08/[address]: Cathy Chavira DO : 1955 BED: DIS: 10/08/2022 SPEC #: [id number] RECD: 10/08/22 18:12 STATUS: SOUT REQ #: [id number] VIGNESH: 10/08/22 13:[address]: Cathy Chavira DEPT: Surgical Specimen RECD BY: Maria German ENTERED: 10/08/22 18:12 SP TYPE: Endomet OTHR DR: Arley Figueroa, CLARISA Tissues: 1 - ENDOMETRIUM BX/MARYCARMENETTE Procedures: GROSS AND MICRO LEVEL 4 Comments: [id number]
--- NOTE | 2022-10-08 13:20 | PAPFT_PTH ---
PATIENT: Maria Bell LOC: [facility] U#:[id number] AGE/SX: 67/F ROOM: RE10/08/[address]: Cathy Chavira DO : 1955 BED: DIS: 10/08/2022 SPEC #: [id number] RECD: 10/08/22 18:18 STATUS: SOUMartha REQ #: [id number] VIGNESH: 10/08/22 13:[address]: Cathy Chavira DEPT: [facility] Cytology RECD BY: Maria German ENTERED: 10/08/22 18:18 SP TYPE: PAPFT OT DR: Arley Figueroa, CLARISA Tissues: 1 - CX/ENDOCX FOR PAP SMEARS Procedures: PAP THIN PREP/UVM Screening HPV DNA PROBE Comments: [id number]
== END 2022-10-08 16:26 | disposition home or self-care (01) ==
LOC: LBN 16:25
PROVIDERS: PCP Nurse Practitioner Family; Visit Provider Obstetrics & Gynecology
DX: N95.0 Postmenopausal bleeding (principal); Z12.4 Encounter for screening for malignant neoplasm of cervix; R87.610 Atypical squamous cells of undetermined significance on cytologic smear of cervix (ASC-US); R87.618 Other abnormal cytological findings on specimens from cervix uteri; Z11.51 Encounter for screening for human papillomavirus (HPV)
CPT/HCPCS: 88142; 88305; 87624

== ENCOUNTER 2022-10-24 11:26 | Outpatient (CLI) | payer OTHER, SELFPAY ==
[2022-10-24 12:25] LABS: Abs Immature Grans 0.02 10^3/uL (0.0-0.06); Absolute Basophil Count 0.04 10^3/uL (0.0-0.2); Absolute Eosinophil Count 0.12 10^3/uL (0.0-0.7); Absolute Monocyte Count 0.54 10^3/uL (0.1-0.8); Basophils % 0.6; Eosinophils % 1.7; HCT 38.8 % (36.0-46.0); HGB 12.3 g/dL (11.2-15.7); Immature Grans % 0.3; Lymphocytes % 28.5; MCH 28.2 pg (27.0-33.0); MCHC 31.7 % (32.0-36.0); MCV 89 fL (80-95); MPV 10.6 fL (8.0-11.0); Monocytes % 7.7; Neutrophils % 61.2; Platelet Count 315 10^3/uL (130-400); RBC 4.36 10^6/uL (3.93-5.22); RDW 13.2 % (11.7-14.6); RDW-SD 43.3 fL; WBC 7.02 10^3/uL (4.4-10.8)
[2022-10-24 12:33] LABS: ALT 18 U/L (14-59); AST 13 U/L (15-37); Albumin 3.7 g/dL (3.4-5.0); Alkaline Phosphatase 74 U/L (46-116); Anion Gap 9.6 mmol/L (3-11); BUN 11 mg/dL (7-18); Bilirubin, Total 0.3 mg/dL (0.2-1.0); CO2 26.4 mmol/L (21.0-32.0); CREATININE 0.9 mg/dL (0.55-1.02); Calcium 9.5 mg/dL (8.5-10.1); Chloride 105 mmol/L (98-107); Estimated GFR 69.64 (mL/min/1.73m2); Glucose 120 mg/dL (74-106); Potassium 3.3 mmol/L (3.5-5.1); Sodium 141 mmol/L (136-145); Total Protein 7.4 g/dL (6.4-8.2)
== END 2022-10-24 11:27 | disposition home or self-care (01) ==
LOC: LOS 11:27
PROVIDERS: PCP Nurse Practitioner Family; Visit Provider Nurse Practitioner Family
DX: Z51.81 Encounter for therapeutic drug level monitoring (principal); N93.9 Abnormal uterine and vaginal bleeding, unspecified
CPT/HCPCS: 36415; 80053; 85025

== ENCOUNTER 2022-11-04 14:36 | Outpatient (CLI) | payer OTHER, SELFPAY ==
--- NOTE | 2022-11-04 13:15 | DI.RAD_ITS ---
Exam(s) XR SHOULDER LT COMPLETE 2+V EXAM: XR SHOULDER LT COMPLETE 2+V CLINICAL HISTORY: LEFT SHOULDER F/U. TECHNIQUE: 2D digital imaging was performed. Three images were obtained. AP and Y views were obtain ed. COMPARISON: CR XR SHOULDER LT COMPLETE 2+V from 09/02/2022 FINDINGS: BONES: There are stable post operative changes present. No fracture or dislocation. JOINTS: The orthopedic hardware is in good position. No evidence of hardware loosening. There are d egenerative changes seen at the acromioclavicular joint. SOFT TISSUE: Normal. IMPRESSION: Stable postoperative changes. DATA REPOSITORY: RADIATION DOSE DELIVERED:
== END 2022-11-04 14:37 | disposition home or self-care (01) ==
LOC: DIORS 14:36
PROVIDERS: PCP Nurse Practitioner Family; Referring Provider Nurse Practitioner Family; Visit Provider Student in an Organized Health Care Education/Training Program
DX: M19.012 Primary osteoarthritis, left shoulder (principal); Z96.612 Presence of left artificial shoulder joint
CPT/HCPCS: 73030

== ENCOUNTER 2022-12-04 11:26 | Outpatient (CLI) | payer OTHER, SELFPAY ==
--- NOTE | 2022-12-04 14:49 | DI.US_ITS ---
APPROVED REPORT EXAM: Comprehensive 2D, Doppler, and color-flow Echocardiogram Patient Location: Out-Patient [employer] Finisher: Lissette Garcia RDCS (AE) Indications: Pulmonary HTN, Pre operative exam, Other Information Study Quality: Adequate. Technically limited study due to body habitus. Conclusion Left ventricular wall thickness and chamber size. Estimated ejection fraction is 58%. Wall motion i s normal Normal right ventricular size and systolic function Both atria are normal in size There is no structural or hemodynamically significant valvular disease Normal estimated right ventricular systolic pressure 26 mmHg Wall motion Left Ventricle The left ventricle is normal size. The left ventricular systolic function is normal. The left ventric ular ejection fraction is within the normal range. There is normal left ventricular wall thickness. T here is normal LV segmental wall motion. There is no ventricular septal defect visualized. LVEF is 58 %. Right Ventricle The right ventricle is normal size. The right ventricular systolic function is normal. Atria The left atrium size is normal. The right atrium size is normal. The interatrial septum is intact wit h no evidence for an atrial septal defect. Aortic Valve The aortic valve is normal in structure. Number of aortic valve leaflets could not be assessed. There is no aortic valvular stenosis. No aortic regurgitation is present. Mitral Valve The mitral valve is normal in structure. No evidence of mitral valve stenosis. Trace mitral regurgita tion. Tricuspid Valve The tricuspid valve is normal in structure. There is no tricuspid valve stenosis. Trace tricuspid reg urgitation. Pulmonic Valve The pulmonary valve is normal in structure. There is no pulmonic valvular stenosis. There is no pulmo brandy valvular regurgitation. Great Vessels The aortic root is normal in size. The ascending aorta is normal in size. Aortic arch is normal in ca liber. IVC is normal in size and collapses >50% with inspiration. Pericardium There is no pericardial effusion. 2D Dimensions IVSD d PLAX 1.01 cm F: 0.6-1.0 LV Vol A2C d MOD 123.7 mL LVPW d PLAX 1.03 cm F: 0.6 - 1.0 LV Vol A4C d MOD 112.1 mL LVID d PLAX 4.71 cm F: 3.8 - 5.2 LA vol/ BSA A2C s A-L 21.9 mL/m2 LVDs 3.20 cm F: 2.2 - 3.5 LA vol/ BSA A4C s A-L 21.1 mL/m2 Ao Root d 2.57 cm F: 2.7 - 3.3 LA Vol/ BSA Biplane s A-L 21.6 mL/m2 RA Area A4C 13.52 cm2 LA Area A4C s MOD 17.42 cm2 RA Vol/ BSA A4C s A-L 13.3 mL/m2 LA Area A2C s MOD 17.66 cm2 Ao Asc Diam d 3.12 cm F: 2.3 - 3.1 LV EF A4C MOD 58.0 % LV EF Teichholz 59.8 % LV EF A2C MOD 58.0 % LVEF (Rushing's) 56.75 % F: 54 - 74 LV EF Biplane MOD 56.8 % LV Volume 86.59 mL F: 46 - 106 SV 68.86 mL LV Volume Index 37.00 mL/m2 F: 29 - 61 SV Index 29.43 mL/m2 LV Vol Biplane MOD 121.3 mL FS 31.75 % M-Mode TAPSE 2.06 cm (M/F) >1.7 LV Diastology MV E' medial 0.075 (>0.07 m/s) E/A Ratio 0.7 LV E/e MED 8.85 (<14) MV E Vmax 0.67 (0.4-1.3 m/s) MV E' lateral 0.066 (>0.1 m/s) MV A Vmax 1.00 (0.4-1.3 m/s) LV E/e LAT 10.20 (<14) MV E/A Ratio 0.67 MV E/E' medial 8.90 MV E/E' lateral 10.22 Aortic Valve LVOT Area 2.67 cm2 AoV Area Vmax 2.33 cm2 LVOT Vmax 1.23 m/s AoV Area/ BSA (Vmax) 1.00 cm2/m2 LVOT Mean Fadi. 0.90 m/s ELIZABETH Mean Fadi. 2.54 cm2 LVOT Peak Grad 6.0 mmHg ELIZABETH Mean Fadi. Index 1.09 cm2/m2 LVOT Mean Grad 3.6 mmHg LVOT VTI 0.235 m LVOT Diam s 1.80 cm AoV Vmax 1.41 m/s Velocity Ratio 0.87 AoV Mean Fadi. 0.95 m/s AoV Peak Grad 7.9 mmHg LVOT SV 62.79 mL AoV Mean Grad 4.1 mmHg AoV VTI 0.246 m AoV Area VTI 2.55 cm2 AoV Area/ BSA (VTI) 1.09 cm/m2 Mitral Valve MV DT 160 (160-240 msec) MV PHT 46 msec MV Area PHT 4.76 cm2 MV VTI 0.267 m MV Area VTI 2.36 (4.0-6.0 cm2) Pulmonary Valve PV Vmax 0.89 (0.5-1.5 m/s) RVOT Peak Gr. 2.36 mmHg PV Peak Grad 3.2 mmHg RVOT Mean Gr. 1.75 mmHg PV Mean Grad 2.1 mmHg RVOT VTI 0.164 m PV VTI 0.190 m RVOT Vmax 0.77 m/s Tricuspid Valve TR Peak Grad 23.4 mmHg TR Vmax 2.42 m/s RA Pressure 3.00 mmHg RVSP (TR) 26.4 mmHg
== END 2022-12-04 11:46 ==
LOC: DI 11:26
PROVIDERS: PCP Nurse Practitioner Family; Visit Provider Student in an Organized Health Care Education/Training Program
DX: I27.0 Primary pulmonary hypertension (principal)
CPT/HCPCS: 93306

== ENCOUNTER 2023-02-18 01:17 | Outpatient (CLI) | payer OTHER, SELFPAY ==
--- NOTE | 2023-02-18 13:45 | DI.MRI_ITS ---
Exam(s) MR ABDOMEN WO/W EXAM: MR ABDOMEN WO/W CLINICAL HISTORY: ADRENAL NODULE, E27.8, SEEN ON PREVIOUS CT TECHNIQUE: Multiplanar multisequence MRI of the Abdomen was performed. CONTRAST MATERIAL: IV Contrast: mL of Dotarem contrast administered. COMPARISON: CT CT CHEST PE ABD PELVIS W from 09/28/[address] CHEST W from 02/18/2023 FINDINGS: Lung bases: Clear where visualized. Liver: Unremarkable. Pancreas: Somewhat atrophic. Gallbladder and Bile Ducts: Several small gallstones are noted in the dependent portion of the gallbl adder. No biliary dilatation. No gallbladder wall thickening. Adrenals: 2.5 centimeter left adrenal mass, unchanged in size. Significant signal dropout on opposed phase images. Patchy decreased density on fat suppressed T1 weighted images consistent with signifi cant fatty elements. Kidneys: 4.5 centimeter simple appearing cyst lower pole right kidney. Spleen: Unremarkable. Aorta: Unremarkable. Soft Tissues: Unremarkable. Bone: Degenerative changes in the spine. Lymph Nodes: Abnormally enlarged para-aortic lymph nodes at the level of the kidneys in the largest 2 .5 cm. These were not present on prior CT 2.3 x 3.0 centimeter cystic structure right upper pelvis anterior to vessels. Could be related to th e right ovary. No abnormality seen on prior CT in this location. Bowel: Sigmoid diverticulosis. IMPRESSION: 1. Stable size of 2.5 centimeter left adrenal nodule. Significant signal dropout on opposed phase i mages, consistent with significant component, likely reflecting an adenoma. 2. Significantly enlarged para-aortic lymph nodes up to 2.5 cm in size, not present previously. Fin dings could represent metastatic lymph nodes versus lymphoma. Clinical correlation recommended. 3. Partially visualized cystic area in the right upper pelvis may be wrist associated with the right ovary. Pelvic ultrasound or MRI could be considered. Unexpected findings DATA REPOSITORY:
[2023-02-18 14:02] LABS: CREATININE 0.8 mg/dL (0.55-1.02); Estimated GFR 80.21 (mL/min/1.73m2)
[2023-02-18] MEDS: Gadoterate meglumine 20 ML VIAL IVP (14:11)
[2023-02-18] MEDS: Normal Saline - Diluent 50 ML VIAL IJ ×2 (14:12→14:48)
[2023-02-18] MEDS: Omnipaque 350 MG/ML 100 ML BTL IJ (14:48)
--- NOTE | 2023-02-18 15:15 | DI.CT_ITS ---
Exam(s) CT CHEST W EXAM: CT CHEST W CLINICAL HISTORY: ADRENAL NODULE, E27.8, EVAL FOR CHEST NODULES, ? MALIGNANCY PER [facility] [place] NURSE TECHNIQUE: Imaging Protocol: Axial computed tomography images with coronal and sagittal reformatted images were created and reviewed CONTRAST MATERIAL: Intravenous: Omnipaque 350 Contrast volume:100 ml. COMPARISON: CT CT CHEST PE ABD PELVIS W from 09/28/2022 FINDINGS: Pulmonary parenchyma: No consolidation. Stable smoothly marginated 6 millimeter nodule in the periph eral right lower lobe. Stable 5 millimeter nodule posterior right lower lobe. The nodules better vi sualized on today's exam since there was motion on the prior study. Tracheobronchial tree: No bronchiectasis or mucous plugging. Mediastinum and Veronica: No dominant adenopathy or fluid collection. Pleura: No effusion or pneumothorax. Heart: The heart is not dilated. Minimal coronary artery calcifications are seen. Aorta: Thoracic aorta non-dilated. Upper abdomen: Mild hepatic steatosis. Stable size 2.5 centimeter right adrenal mass. Please see [facility] adrenal MRI report. Bones: Degenerative changes. Prominent endplate osteophytes. Soft tissues: Unremarkable. IMPRESSION: Stable right lower lobe pulmonary nodules. Stable left adrenal mass. RADIATION DOSE DELIVERED: 827.78mGy.cm Total DLP DATA REPOSITORY: All CT scans at this facility are submitted to the National Radiology Data Registry (NRDR) Dose Index Registry (DIR) with the [employer] (ACR). RADIATION OPTIMIZATION: All CT scans at this facility use at least one of these dose optimization te chniques: automated exposure control; mA and/or kV adjustment per patient size (includes targeted exa ms where dose is matched to clinical indication); or iterative reconstruction.
== END 2023-02-18 01:37 ==
LOC: DI 01:17
PROVIDERS: PCP Nurse Practitioner Family; Visit Provider Obstetrics & Gynecology Gynecologic Oncology
DX: E27.8 Other specified disorders of adrenal gland (principal); R59.0 Localized enlarged lymph nodes; R91.8 Other nonspecific abnormal finding of lung field
CPT/HCPCS: 74183; 71260; 82565; J3490

== ENCOUNTER 2023-03-03 04:20 | Outpatient (CLI) | payer OTHER, SELFPAY ==
[2023-03-03 09:13] LABS: Abs Immature Grans 0.03 10^3/uL (0.0-0.06); Absolute Basophil Count 0.05 10^3/uL (0.0-0.2); Absolute Eosinophil Count 0.12 10^3/uL (0.0-0.7); Absolute Lymphocyte Count 1.93 10^3/uL (1.2-3.4); Absolute Monocyte Count 0.66 10^3/uL (0.1-0.8); Absolute Neutrophil Count 5.95 10^3/uL (1.2-6.7); Basophils % 0.6; Eosinophils % 1.4; HCT 40.7 % (36.0-46.0); HGB 13.1 g/dL (11.2-15.7); Immature Grans % 0.3; Lymphocytes % 22.1; MCH 27.9 pg (27.0-33.0); MCHC 32.2 % (32.0-36.0); MCV 87 fL (80-95); MPV 9.9 fL (8.0-11.0); Monocytes % 7.6; Platelet Count 313 10^3/uL (130-400); RDW 13.3 % (11.7-14.6); RDW-SD 42.4 fL; WBC 8.74 10^3/uL (4.4-10.8)
[2023-03-03 09:30] LABS: ALT 29 U/L (14-59); AST 15 U/L (15-37); Albumin 3.6 g/dL (3.4-5.0); Alkaline Phosphatase 110 U/L (46-116); Anion Gap 7.7 mmol/L (3-11); BUN 18 mg/dL (7-18); Bilirubin, Total 0.3 mg/dL (0.2-1.0); CO2 30.3 mmol/L (21.0-32.0); CREATININE 0.9 mg/dL (0.55-1.02); Calcium 9.4 mg/dL (8.5-10.1); Chloride 105 mmol/L (98-107); Estimated GFR 69.64 (mL/min/1.73m2); Glucose 135 mg/dL (74-106); Potassium 4.1 mmol/L (3.5-5.1); Sodium 143 mmol/L (136-145); Total Protein 8.2 g/dL (6.4-8.2)
[2023-03-04 10:44] LABS: CA 125 57 U/mL (<30)
== END 2023-03-03 04:21 | disposition home or self-care (01) ==
LOC: LBO 04:20
PROVIDERS: PCP Nurse Practitioner Family; Visit Provider Internal Medicine
DX: C54.1 Malignant neoplasm of endometrium (principal)
CPT/HCPCS: 36415; 80053; 86304; 85025

== ENCOUNTER 2023-03-24 07:54 | Outpatient (RCR) | payer OTHER, SELFPAY ==
[2023-03-24] MEDS: Normal Saline Flush 10 ML SYR IVP (09:14)
[2023-03-24 09:21] LABS: Abs Immature Grans 0.04 10^3/uL (0.0-0.06); Absolute Basophil Count 0.05 10^3/uL (0.0-0.2); Absolute Eosinophil Count 0.06 10^3/uL (0.0-0.7); Absolute Lymphocyte Count 1.44 10^3/uL (1.2-3.4); Absolute Monocyte Count 0.72 10^3/uL (0.1-0.8); Absolute Neutrophil Count 5.22 10^3/uL (1.2-6.7); Basophils % 0.7; Eosinophils % 0.8; HCT 35.5 % (36.0-46.0); HGB 11.6 g/dL (11.2-15.7); Immature Grans % 0.5; Lymphocytes % 19.1; MCH 28.1 pg (27.0-33.0); MCHC 32.7 % (32.0-36.0); MCV 86 fL (80-95); MPV 9.8 fL (8.0-11.0); Monocytes % 9.6; Neutrophils % 69.3; Platelet Count 276 10^3/uL (130-400); RBC 4.13 10^6/uL (3.93-5.22); RDW 14.8 % (11.7-14.6); RDW-SD 44.4 fL; WBC 7.53 10^3/uL (4.4-10.8)
[2023-03-24 09:41] LABS: ALT 45 U/L (14-59); AST 22 U/L (15-37); Albumin 3.2 g/dL (3.4-5.0); Alkaline Phosphatase 129 U/L (46-116); Anion Gap 9.9 mmol/L (3-11); BUN 18 mg/dL (7-18); Bilirubin, Total 0.3 mg/dL (0.2-1.0); CO2 28.1 mmol/L (21.0-32.0); CREATININE 0.9 mg/dL (0.55-1.02); Calcium 9.2 mg/dL (8.5-10.1); Chloride 105 mmol/L (98-107); Estimated GFR 69.64 (mL/min/1.73m2); Glucose 193 mg/dL (74-106); Potassium 3.9 mmol/L (3.5-5.1); Sodium 143 mmol/L (136-145); Total Protein 7.2 g/dL (6.4-8.2)
== END 2023-04-03 23:59 | disposition home or self-care (01) ==
LOC: INF 07:54
PROVIDERS: PCP Nurse Practitioner Family; Visit Provider Internal Medicine
DX: C54.1 Malignant neoplasm of endometrium (principal); Z45.2 Encounter for adjustment and management of vascular access device
CPT/HCPCS: 36591; 80053; 85025

== ENCOUNTER 2023-04-14 03:14 | Outpatient (RCR) | payer MEDICARE, OTHER, SELFPAY ==
[2023-04-14] MEDS: Normal Saline Flush 10 ML SYR IVP (08:09)
[2023-04-14 08:38] LABS: Abs Immature Grans 0.03 10^3/uL (0.0-0.06); Absolute Basophil Count 0.05 10^3/uL (0.0-0.2); Absolute Eosinophil Count 0.04 10^3/uL (0.0-0.7); Absolute Lymphocyte Count 1.64 10^3/uL (1.2-3.4); Absolute Monocyte Count 0.68 10^3/uL (0.1-0.8); Absolute Neutrophil Count 5.71 10^3/uL (1.2-6.7); Basophils % 0.6; Eosinophils % 0.5; HCT 37.2 % (36.0-46.0); HGB 11.7 g/dL (11.2-15.7); Immature Grans % 0.4; Lymphocytes % 20.1; MCH 27.9 pg (27.0-33.0); MCHC 31.5 % (32.0-36.0); MCV 89 fL (80-95); MPV 9.3 fL (8.0-11.0); Monocytes % 8.3; Neutrophils % 70.1; Platelet Count 343 10^3/uL (130-400); RBC 4.19 10^6/uL (3.93-5.22); RDW 16.6 % (11.7-14.6); WBC 8.15 10^3/uL (4.4-10.8)
[2023-04-14 08:51] LABS: ALT 28 U/L (14-59); AST 15 U/L (15-37); Albumin 3.5 g/dL (3.4-5.0); Alkaline Phosphatase 117 U/L (46-116); Anion Gap 9.4 mmol/L (3-11); BUN 25 mg/dL (7-18); Bilirubin, Total 0.3 mg/dL (0.2-1.0); CO2 27.6 mmol/L (21.0-32.0); CREATININE 0.8 mg/dL (0.55-1.02); Calcium 9.5 mg/dL (8.5-10.1); Chloride 104 mmol/L (98-107); Estimated GFR 80.21 (mL/min/1.73m2); Glucose 141 mg/dL (74-106); Potassium 4.3 mmol/L (3.5-5.1); Sodium 141 mmol/L (136-145); Total Protein 7.6 g/dL (6.4-8.2)
== END 2023-05-04 23:59 | disposition home or self-care (01) ==
LOC: INF 03:14
PROVIDERS: PCP Nurse Practitioner Family; Visit Provider Internal Medicine
DX: C54.1 Malignant neoplasm of endometrium (principal); Z45.2 Encounter for adjustment and management of vascular access device
CPT/HCPCS: 36591; 80053; 85025

== ENCOUNTER 2023-06-02 02:33 | Outpatient (RCR) | payer MEDICARE, OTHER, SELFPAY ==
[2023-05-05 09:37] LABS: Abs Immature Grans 0.03 10^3/uL (0.0-0.06); Absolute Basophil Count 0.04 10^3/uL (0.0-0.2); Absolute Eosinophil Count 0.04 10^3/uL (0.0-0.7); Absolute Lymphocyte Count 1.53 10^3/uL (1.2-3.4); Absolute Monocyte Count 0.83 10^3/uL (0.1-0.8); Absolute Neutrophil Count 4.28 10^3/uL (1.2-6.7); Basophils % 0.6; Eosinophils % 0.6; HCT 36.4 % (36.0-46.0); HGB 11.8 g/dL (11.2-15.7); Immature Grans % 0.4; Lymphocytes % 22.7; MCH 29.1 pg (27.0-33.0); MCHC 32.4 % (32.0-36.0); MCV 90 fL (80-95); MPV 8.9 fL (8.0-11.0); Monocytes % 12.3; Neutrophils % 63.4; Platelet Count 299 10^3/uL (130-400); RBC 4.06 10^6/uL (3.93-5.22); RDW 16.6 % (11.7-14.6); RDW-SD 53.9 fL; WBC 6.75 10^3/uL (4.4-10.8)
[2023-05-05] MEDS: Normal Saline Flush 10 ML SYR IVP (09:45)
[2023-05-05 09:58] LABS: ALT 34 U/L (14-59); AST 18 U/L (15-37); Albumin 3.2 g/dL (3.4-5.0); Alkaline Phosphatase 120 U/L (46-116); Anion Gap 9.1 mmol/L (3-11); BUN 20 mg/dL (7-18); Bilirubin, Total 0.3 mg/dL (0.2-1.0); CO2 27.9 mmol/L (21.0-32.0); CREATININE 0.8 mg/dL (0.55-1.02); Calcium 9.3 mg/dL (8.5-10.1); Chloride 104 mmol/L (98-107); Estimated GFR 80.21 (mL/min/1.73m2); Glucose 136 mg/dL (74-106); Potassium 3.8 mmol/L (3.5-5.1); Sodium 141 mmol/L (136-145); Total Protein 7.4 g/dL (6.4-8.2)
[2023-05-26] MEDS: Normal Saline Flush 10 ML SYR IVP (09:09)
[2023-05-26 09:16] LABS: Abs Immature Grans 0.03 10^3/uL (0.0-0.06); Absolute Basophil Count 0.04 10^3/uL (0.0-0.2); Absolute Eosinophil Count 0.05 10^3/uL (0.0-0.7); Absolute Lymphocyte Count 1.59 10^3/uL (1.2-3.4); Absolute Neutrophil Count 4.62 10^3/uL (1.2-6.7); Basophils % 0.6; Eosinophils % 0.7; HCT 36.3 % (36.0-46.0); HGB 11.7 g/dL (11.2-15.7); Immature Grans % 0.4; Lymphocytes % 22.3; MCH 29.2 pg (27.0-33.0); MCHC 32.2 % (32.0-36.0); MCV 91 fL (80-95); MPV 8.8 fL (8.0-11.0); Monocytes % 11.2; Neutrophils % 64.8; Platelet Count 227 10^3/uL (130-400); RBC 4.01 10^6/uL (3.93-5.22); RDW 16.3 % (11.7-14.6); RDW-SD 54.6 fL; WBC 7.13 10^3/uL (4.4-10.8)
[2023-05-26 09:29] LABS: ALT 45 U/L (14-59); AST 20 U/L (15-37); Albumin 3.4 g/dL (3.4-5.0); Alkaline Phosphatase 123 U/L (46-116); Anion Gap 7.8 mmol/L (3-11); BUN 18 mg/dL (7-18); Bilirubin, Total 0.3 mg/dL (0.2-1.0); CO2 28.2 mmol/L (21.0-32.0); CREATININE 0.8 mg/dL (0.55-1.02); Calcium 9.4 mg/dL (8.5-10.1); Chloride 104 mmol/L (98-107); Estimated GFR 80.21 (mL/min/1.73m2); Glucose 105 mg/dL (74-106); Potassium 3.8 mmol/L (3.5-5.1); Sodium 140 mmol/L (136-145); Total Protein 7.5 g/dL (6.4-8.2)
== END 2023-06-04 23:59 | disposition home or self-care (01) ==
LOC: INF 02:33
PROVIDERS: PCP Nurse Practitioner Family; Visit Provider Internal Medicine
DX: C54.1 Malignant neoplasm of endometrium (principal); Z45.2 Encounter for adjustment and management of vascular access device
CPT/HCPCS: 36591; 80053; 85025

== ENCOUNTER 2023-06-22 04:11 | Outpatient (RCR) | payer MEDICARE, OTHER, SELFPAY ==
[2023-06-22] MEDS: Normal Saline Flush 10 ML SYR IVP (07:57)
[2023-06-22 08:42] LABS: Abs Immature Grans 0.03 10^3/uL (0.0-0.06); Absolute Basophil Count 0.04 10^3/uL (0.0-0.2); Absolute Eosinophil Count 0.02 10^3/uL (0.0-0.7); Absolute Lymphocyte Count 1.51 10^3/uL (1.2-3.4); Absolute Monocyte Count 0.95 10^3/uL (0.1-0.8); Absolute Neutrophil Count 5.23 10^3/uL (1.2-6.7); Basophils % 0.5; Eosinophils % 0.3; HCT 36.9 % (36.0-46.0); HGB 12.1 g/dL (11.2-15.7); Immature Grans % 0.4; Lymphocytes % 19.4; MCH 30.5 pg (27.0-33.0); MCHC 32.8 % (32.0-36.0); MCV 93 fL (80-95); MPV 9.6 fL (8.0-11.0); Monocytes % 12.2; Neutrophils % 67.2; Platelet Count 265 10^3/uL (130-400); RBC 3.97 10^6/uL (3.93-5.22); RDW 15.3 % (11.7-14.6); RDW-SD 52.5 fL; WBC 7.78 10^3/uL (4.4-10.8)
[2023-06-22 08:59] LABS: ALT 37 U/L (14-59); AST 23 U/L (15-37); Albumin 3.5 g/dL (3.4-5.0); Alkaline Phosphatase 107 U/L (46-116); Anion Gap 9.8 mmol/L (3-11); BUN 17 mg/dL (7-18); Bilirubin, Total 0.3 mg/dL (0.2-1.0); CO2 26.2 mmol/L (21.0-32.0); CREATININE 0.8 mg/dL (0.55-1.02); Calcium 9.7 mg/dL (8.5-10.1); Chloride 104 mmol/L (98-107); Estimated GFR 80.21 (mL/min/1.73m2); Glucose 151 mg/dL (74-106); Potassium 3.6 mmol/L (3.5-5.1); Sodium 140 mmol/L (136-145); Total Protein 7.6 g/dL (6.4-8.2)
[2023-06-23 10:10] LABS: CA 125 5 U/mL (<30)
== END 2023-07-04 23:59 | disposition home or self-care (01) ==
LOC: INF 04:11
PROVIDERS: PCP Nurse Practitioner Family; Visit Provider Internal Medicine
DX: C54.1 Malignant neoplasm of endometrium (principal); Z45.2 Encounter for adjustment and management of vascular access device
CPT/HCPCS: 36591; 80053; 86304; 85025

== ENCOUNTER → 2023-07-06 15:16 | Outpatient (BNVA) | payer MEDICARE, OTHER, SELFPAY | PROVIDERS: PCP Nurse Practitioner Family; Referring Provider Nurse Practitioner Family; Visit Provider Student in an Organized Health Care Education/Training Program | DX: I26.99 Other pulmonary embolism without acute cor pulmonale (principal); Z79.01 Long term (current) use of anticoagulants; R91.1 Solitary pulmonary nodule; C54.1 Malignant neoplasm of endometrium | CPT/HCPCS: 99214 ==

== ENCOUNTER 2023-07-15 15:43 | Outpatient (CLI) | payer MEDICARE, OTHER, SELFPAY ==
--- NOTE | 2023-07-15 14:05 | DI.RAD_ITS ---
Exam(s) XR SHOULDER LT COMPLETE 2+V EXAM: XR SHOULDER LT COMPLETE 2+V CLINICAL HISTORY: YEARLY F/U LEFT RTSA. TECHNIQUE: 2D digital imaging was performed. Three views. COMPARISON: CR XR SHOULDER LT COMPLETE 2+V from 11/04/2022 FINDINGS: There has been no change in the alignment of the reverse shoulder prosthesis. There are no abnormal surrounding bony lucencies. IMPRESSION: Stable appearance of reverse shoulder prosthesis. DATA REPOSITORY: RADIATION DOSE DELIVERED:
== END 2023-07-15 15:44 | disposition home or self-care (01) ==
LOC: DIORS 15:43
PROVIDERS: PCP Nurse Practitioner Family; Visit Provider Student in an Organized Health Care Education/Training Program
DX: Z47.1 Aftercare following joint replacement surgery (principal); Z96.612 Presence of left artificial shoulder joint; C54.1 Malignant neoplasm of endometrium; M75.22 Bicipital tendinitis, left shoulder
CPT/HCPCS: 99213; 73030

== ENCOUNTER 2023-08-12 11:20 | Outpatient (CLI) | payer MEDICARE, OTHER, SELFPAY ==
--- NOTE | 2023-08-12 11:15 | RT.EKG_ITS ---
APPROVED REPORT Exam: Resting ECG Reason for Exam: HTN Patient Location: O HR:97 bpm ECG Measurements Heart Rate 97 AXIS NH 150 P 47 QRSd 81 QRS 9 QT 341 T 51 QTc 433 Conclusion Sinus rhythm...normal P axis, V-rate 50- 99 Normal Electrocardiogram
== END 2023-08-12 11:21 | disposition home or self-care (01) ==
LOC: DI.CM 11:22
PROVIDERS: PCP Nurse Practitioner Family; Visit Provider Nurse Practitioner Family
DX: I10 Essential (primary) hypertension (principal)
CPT/HCPCS: 93010

== ENCOUNTER → 2023-08-12 11:54 | Outpatient (CLI) | payer MEDICARE, OTHER, SELFPAY ==
--- NOTE | 2023-08-12 11:15 | DI.CT_ITS ---
Exam(s) CT CHEST PE CTA EXAM: CT CHEST PE CTA CLINICAL HISTORY: soB I26.99 PE C54.1 ENDOMETRIUM CANCER. TECHNIQUE: Imaging Protocol: Axial CT angiography was performed with multi-slice acquisition and mu lti-planar and/or 3D reconstructions. CONTRAST MATERIAL: Intravenous: Omnipaque 350 contrast volume:100 mL COMPARISON: CT CT CHEST W from 02/18/2023 FINDINGS: The examination is limited due to patient motion artifact. Tracheobronchial tree: Patent where visualized. Pulmonary parenchyma: No consolidation or dominant measurable mass. No architectural distortion. Ther e is a stable 5 mm nodule in the lateral aspect of the right lower lobe. (Series 7, image 323). The re is a stable 4 mm nodule in the medial aspect of the right lower lobe (series 7, image 391). No ne w pulmonary nodules. Stable scarring in the left lower lobe. Pulmonary Arteries: Evaluation of the segmental and subsegmental pulmonary arteries is limited due to patient motion artifact. No large central pulmonary embolus is seen. Mediastinum and Veronica: No dominant adenopathy or fluid collection. The esophagus is unremarkable. Visualized thyroid gland: Unremarkable. Pleura: No effusion or pneumothorax. Heart: The heart is not dilated. Coronary artery calcifications are present. No pericardial effusion . Aorta: Thoracic aorta non-dilated. No evidence of dissection. Upper abdomen: There is a stable left adrenal nodule. Soft tissues: Unremarkable. Bones: Within normal limits for the patient's age.Patient has a left shoulder replacement. IMPRESSION: 1. No evidence of pulmonary embolism, thoracic aortic dissection or aneurysm. 2. Stable pulmonary nodules. No new pulmonary nodules. 3. No acute pulmonary process. RADIATION DOSE DELIVERED: Total DLP DATA REPOSITORY: All CT scans at this facility are submitted to the National Radiology Data Registry (NRDR) Dose Index Registry (DIR) with the [employer] (ACR). RADIATION OPTIMIZATION: All CT scans at this facility use at least one of these dose optimization te chniques: automated exposure control; mA and/or kV adjustment per patient size (includes targeted exa ms where dose is matched to clinical indication); or iterative reconstruction.
[2023-08-12 13:00] LABS: Abs Immature Grans 0.02 10^3/uL (0.0-0.06); Absolute Basophil Count 0.03 10^3/uL (0.0-0.2); Absolute Eosinophil Count 0.07 10^3/uL (0.0-0.7); Absolute Lymphocyte Count 1.51 10^3/uL (1.2-3.4); Absolute Monocyte Count 0.59 10^3/uL (0.1-0.8); Absolute Neutrophil Count 4.99 10^3/uL (1.2-6.7); Basophils % 0.4; HCT 39.6 % (36.0-46.0); HGB 12.7 g/dL (11.2-15.7); Immature Grans % 0.3; Lymphocytes % 20.9; MCH 30.2 pg (27.0-33.0); MCHC 32.1 % (32.0-36.0); MCV 94 fL (80-95); MPV 8.9 fL (8.0-11.0); Monocytes % 8.2; Neutrophils % 69.2; Platelet Count 253 10^3/uL (130-400); RBC 4.21 10^6/uL (3.93-5.22); RDW 13.2 % (11.7-14.6); RDW-SD 45.2 fL; WBC 7.21 10^3/uL (4.4-10.8)
[2023-08-12 13:23] LABS: ALT 22 U/L (14-59); AST 13 U/L (15-37); Albumin 3.6 g/dL (3.4-5.0); Alkaline Phosphatase 79 U/L (46-116); Anion Gap 8.4 mmol/L (3-11); BUN 13 mg/dL (7-18); Bilirubin, Total 0.3 mg/dL (0.2-1.0); CO2 28.6 mmol/L (21.0-32.0); CREATININE 0.8 mg/dL (0.55-1.02); Calcium 9.9 mg/dL (8.5-10.1); Chloride 103 mmol/L (98-107); Estimated GFR 80.21 (mL/min/1.73m2); Glucose 135 mg/dL (74-106); Potassium 3.9 mmol/L (3.5-5.1); Sodium 140 mmol/L (136-145); Total Protein 7.7 g/dL (6.4-8.2)
[2023-08-12] MEDS: Normal Saline - Diluent 50 ML VIAL IJ (14:20)
[2023-08-12] MEDS: Omnipaque 350 MG/ML 100 ML BTL IJ (14:21)
[2023-08-12] MEDS: Normal Saline Flush 10 ML SYR IVP (14:22)
== END ==
PROVIDERS: PCP Nurse Practitioner Family; Visit Provider Nurse Practitioner Family
DX: C54.1 Malignant neoplasm of endometrium (principal); I26.99 Other pulmonary embolism without acute cor pulmonale; R06.00 Dyspnea, unspecified
CPT/HCPCS: 71275; 80053; 85025; J3490

== ENCOUNTER → 2023-09-09 01:26 | Outpatient (CLI) | payer MEDICARE, OTHER, SELFPAY ==
--- NOTE | 2023-09-09 | DI.CT_ITS ---
Exam(s) CT ABDOMEN PELVIS W EXAM: CT ABDOMEN PELVIS W CLINICAL HISTORY: ENDOMETRIAL CANCER C54.1 INCREASE LEG PAIN SOB. TECHNIQUE: Imaging Protocol: Axial computed tomography images with coronal and sagittal reformatted images were created and reviewed CONTRAST MATERIAL: Intravenous: Omnipaque-350 100cc Oral: Yes. Oral contrast was also administered for bowel opacification. COMPARISON: CT CT CHEST PE ABD PELVIS W from 09/28/2022 MR MR ABDOMEN WO/W from 02/18/[address] CHEST PE CTA from 08/12/2023 FINDINGS: VISUALIZED LUNG BASES: Small 5 mm nodule in the right lower lobe is unchanged. No pleural effusions. ABDOMEN: There is no ascites. LIVER: Liver is again noted be hypodense implying steatosis. However, there are no discrete focal he patic lesions identified. No dilated intrahepatic ducts. GALLBLADDER/BILIARY: No obvious gallbladder pathology. CBD is not dilated. PANCREAS: No evidence of pancreatic mass nor dilatation of the pancreatic duct. SPLEEN: Spleen is not enlarged. No obvious intrasplenic lesions. Splenic and portal veins are paten t. ADRENALS: Right adrenal gland unremarkable. The previously described abnormal nodule in the left adr enal gland is unchanged in size and appearance measuring 2.7 x 2.6, unchanged from 09/28/2022. KIDNEYS:Cyst in the lower pole of the right kidney measuring 4.5 cm again noted. No solid renal mass es. No calculi. No hydronephrosis. No solid renal masses. No calculi nor hydronephrosis.. ABDOMINAL AORTA: Abdominal aorta is not enlarged. LYMPH NODES: There is presently no para-aortic adenopathy. No adenopathy around the aortic bifurcatio n. No obvious intrapelvic nor inguinal adenopathy. ABDOMINAL WALL: No evidence of significant anterior abdominal wall nor inguinal hernia. GI: There is no evidence of bowel obstruction, free air, nor abscess. PELVIS: GI: No evidence of appendicitis.There is sigmoid diverticuli but no evidence of acute diverticulitis. LYMPH NODES: There is no intrapelvic nor inguinal adenopathy. REPRODUCTIVE: There has been interval hysterectomy. No abnormal tissue nor fluid collections in the pelvis at this time. URINARY BLADDER: Unremarkable. No bladder mass. No radiopaque calculi in the bladder lumen. Bladde r not distended. OSSEOUS: No fractures and no significant osseous lesions. IMPRESSION: 1. As compared to prior studies listed above there has been interval hysterectomy. No masses nor abn ormal fluid collections in the pelvis noted. No obvious lymphadenopathy in the abdomen and pelvis an d no ascites. 2. Left adrenal lesion is unchanged from 09/28/2022 a measuring 27 x 26 mm. Internal signal dropout on prior MRI scan noted is, indicating that it is probably an adenoma. RADIATION DOSE DELIVERED: Total DLP DATA REPOSITORY: All CT scans at this facility are submitted to the National Radiology Data Registry (NRDR) Dose Index Registry (DIR) with the [employer] (ACR). RADIATION OPTIMIZATION: All CT scans at this facility use at least one of these dose optimization te chniques: automated exposure control; mA and/or kV adjustment per patient size (includes targeted exa ms where dose is matched to clinical indication); or iterative reconstruction.
[2023-09-09] MEDS: Barium Sulfate 2% W/V-Creamy Vanilla Smoothie 450 ML BTL PO (10:07)
[2023-09-09] MEDS: Normal Saline - Diluent 50 ML VIAL IJ (10:09)
[2023-09-09] MEDS: Omnipaque 350 MG/ML 500 ML BTL-Imaging package IJ (10:10)
== END ==
PROVIDERS: PCP Nurse Practitioner Family; Visit Provider Obstetrics & Gynecology Gynecologic Oncology
DX: C54.1 Malignant neoplasm of endometrium (principal)
CPT/HCPCS: 36591; 74177; 82565; J1642

== ENCOUNTER 2023-09-09 02:35 | Outpatient (RCR) | payer MEDICARE, SELFPAY ==
[2023-09-09] MEDS: Heparin 500 UNITS/5 ML SYRINGE (07:47)
[2023-09-09] MEDS: Normal Saline Flush 10 ML SYR IVP (07:48)
[2023-09-09 08:12] LABS: CREATININE 0.9 mg/dL (0.55-1.02)
== END 2023-10-04 23:59 | disposition home or self-care (01) ==
LOC: INF 02:35
PROVIDERS: PCP Nurse Practitioner Family; Visit Provider Internal Medicine
DX: C54.1 Malignant neoplasm of endometrium (principal); Z45.2 Encounter for adjustment and management of vascular access device
CPT/HCPCS: 36591; 82565; J1642

== ENCOUNTER 2023-11-11 02:28 | Outpatient (RCR) | payer MEDICARE, OTHER, SELFPAY ==
[2023-11-11] MEDS: Normal Saline Flush 10 ML SYR IVP (13:09)
== END 2023-12-03 23:59 | disposition home or self-care (01) ==
LOC: INF 02:28
PROVIDERS: PCP Nurse Practitioner Family; Visit Provider Obstetrics & Gynecology Gynecologic Oncology
DX: C54.1 Malignant neoplasm of endometrium (principal); Z45.2 Encounter for adjustment and management of vascular access device
CPT/HCPCS: 96523

== ENCOUNTER 2023-12-16 03:41 | Outpatient (RCR) | payer MEDICARE, OTHER, SELFPAY ==
[2023-12-16] MEDS: Normal Saline Flush 10 ML SYR IVP (13:15)
== END 2024-01-03 23:59 | disposition home or self-care (01) ==
LOC: INF 03:41
PROVIDERS: PCP Nurse Practitioner Family; Visit Provider Obstetrics & Gynecology Gynecologic Oncology
DX: C54.1 Malignant neoplasm of endometrium (principal)
CPT/HCPCS: 96523

== ENCOUNTER 2024-01-13 05:30 | Outpatient (RCR) | payer MEDICARE, OTHER, SELFPAY ==
[2024-01-13] MEDS: Normal Saline Flush 10 ML SYR IVP (12:57)
== END 2024-02-02 23:59 | disposition home or self-care (01) ==
LOC: INF 05:30
PROVIDERS: PCP Nurse Practitioner Family; Visit Provider Obstetrics & Gynecology Gynecologic Oncology
DX: Z45.2 Encounter for adjustment and management of vascular access device (principal)
CPT/HCPCS: 96523

== ENCOUNTER 2024-02-16 05:03 | Outpatient (RCR) | payer MEDICARE, OTHER, SELFPAY ==
[2024-02-16] MEDS: Normal Saline Flush 10 ML SYR IVP (10:08)
== END 2024-03-04 23:59 | disposition home or self-care (01) ==
LOC: INF 05:03
PROVIDERS: PCP Nurse Practitioner Family; Visit Provider Obstetrics & Gynecology Gynecologic Oncology
DX: C54.1 Malignant neoplasm of endometrium (principal); Z45.2 Encounter for adjustment and management of vascular access device
CPT/HCPCS: 96523

== ENCOUNTER 2024-02-17 16:04 | Outpatient (REF) | payer MEDICARE, OTHER, SELFPAY | END 2024-02-17 16:05 | disposition home or self-care (01) | LOC: LBN 16:04 | PROVIDERS: PCP Nurse Practitioner Family; Visit Provider Nurse Practitioner Family | DX: R30.0 Dysuria (principal); B96.89 Other specified bacterial agents as the cause of diseases classified elsewhere | CPT/HCPCS: 87086 ==

== ENCOUNTER 2024-04-26 13:54 | Outpatient (RCR) | payer MEDICARE, OTHER, SELFPAY ==
[2024-04-26] MEDS: Normal Saline Flush 10 ML SYR IVP (15:01)
== END 2024-05-04 23:59 | disposition home or self-care (01) ==
LOC: INF 13:54
PROVIDERS: PCP Nurse Practitioner Family; Visit Provider Nurse Practitioner Family
DX: Z45.2 Encounter for adjustment and management of vascular access device (principal)
CPT/HCPCS: 36591; 96523

== ENCOUNTER → 2024-04-26 15:31 | Outpatient (CLI) | payer MEDICARE, OTHER, SELFPAY ==
--- NOTE | 2024-04-26 13:15 | DI.CT_ITS ---
Exam(s) CT ABDOMEN PELVIS W EXAM: CT ABDOMEN PELVIS W CLINICAL HISTORY: severe abd pain, s/p hysterectomy, endometrial ca, R10.9, Z90.710. TECHNIQUE: Imaging Protocol: Axial computed tomography images with coronal and sagittal reformatted images were created and reviewed CONTRAST MATERIAL: Intravenous: Omnipaque-350 100cc Oral: Yes. Oral contrast was also administered for bowel opacification. COMPARISON: CT CT ABDOMEN PELVIS W from 09/09/2023 FINDINGS: VISUALIZED LUNG BASES: No nodules nor pleural effusions evident. ABDOMEN: There is been significant deterioration when compared to the CT scan of September 2023. There is now significant amount of ascites in the abdomen and pelvis and also appears to be element o f omental caking, not previously present. LIVER: There are no focal hepatic lesions evident. No dilated intrahepatic ducts. GALLBLADDER/BILIARY: No obvious gallbladder pathology. CBD is not dilated. PANCREAS: No evidence of pancreatic mass nor dilatation of the pancreatic duct. SPLEEN: Spleen is not enlarged. No obvious intrasplenic lesions. Splenic and portal veins are paten t. ADRENALS: Right adrenal gland unremarkable. Nodule in the left adrenal gland again noted, unchanged in size, measuring 2.7 x 2.6 cm and most probably a benign adenoma there is also unchanged from CT sc an of 09/28/2022. KIDNEYS:Left kidney unremarkable. There is a cyst in the inferior pole of the right kidney again not ed measuring 4.6 cm. Does not require further investigation there appears to be mild hydronephrosis on the right side the ipsilateral ureter does not appear significantly dilated. No solid renal makenna s.. ABDOMINAL AORTA: Abdominal aorta is not enlarged. LYMPH NODES:There is no retroperitoneal nor paraaortic adenopathy. ABDOMINAL WALL: No evidence of significant anterior abdominal wall nor inguinal hernia. GI: There is no evidence of bowel obstruction, free air, nor abscess. PELVIS: GI: No evidence of appendicitis.Sigmoid diverticuli without evidence of acute diverticulitis. LYMPH NODES: There is no intrapelvic nor inguinal adenopathy. REPRODUCTIVE: Uterus is surgically absent. No adnexal masses seen. URINARY BLADDER: Not distended. No obvious abnormalities. OSSEOUS: No fractures. No significant osseous lesions. IMPRESSION: 1. Compared to CT scan of 09/09/2023 there has been significant deterioration. Again noted is eviden ce of prior hysterectomy. However, there is now a large amount of ascites in the abdomen pelvis as w ell as omental caking consistent with probable omental metastases. 2. There is no evidence of bowel obstruction. 3. Stable unchanged 2.7 x 2.6 cm nodule in left adrenal gland which is possibly a benign adenoma. Le ss likely metastatic disease as is unchanged from CT scan of September 2022. the opposite-right adrena l gland remains unremarkable. RADIATION DOSE DELIVERED: Total DLP DATA REPOSITORY: All CT scans at this facility are submitted to the National Radiology Data Registry (NRDR) Dose Index Registry (DIR) with the [employer] (ACR). RADIATION OPTIMIZATION: All CT scans at this facility use at least one of these dose optimization te chniques: automated exposure control; mA and/or kV adjustment per patient size (includes targeted exa ms where dose is matched to clinical indication); or iterative reconstruction.
[2024-04-26] MEDS: Barium Sulfate 2% W/V-Berry Smoothie 450 ML BTL PO ×2 (14:01→14:02)
[2024-04-26 14:45] LABS: Abs Immature Grans 0.05 10^3/uL (0.0-0.06); Absolute Basophil Count 0.05 10^3/uL (0.0-0.2); Absolute Eosinophil Count 0.07 10^3/uL (0.0-0.7); Absolute Lymphocyte Count 1.49 10^3/uL (1.2-3.4); Absolute Monocyte Count 0.79 10^3/uL (0.1-0.8); Basophils % 0.4 %; Eosinophils % 0.6 %; HCT 39.1 % (36.0-46.0); HGB 12.3 g/dL (11.2-15.7); Immature Grans % 0.4 %; MCHC 31.5 % (32.0-36.0); MCV 89 fL (80-95); Monocytes % 6.9 %; Neutrophils % 78.7 %; Platelet Count 382 10^3/uL (130-400); RDW 12.5 % (11.7-14.6); RDW-SD 40.5 fL; WBC 11.44 10^3/uL (4.4-10.8)
[2024-04-26 15:01] LABS: ALT 26 U/L (14-59); AST 39 U/L (15-37); Albumin 3.1 g/dL (3.4-5.0); Alkaline Phosphatase 109 U/L (46-116); Anion Gap 8.4 mmol/L (3-11); BUN 17 mg/dL (7-18); CO2 28.6 mmol/L (21.0-32.0); CREATININE 1.1 mg/dL (0.55-1.02); Calcium 9.3 mg/dL (8.5-10.1); Chloride 103 mmol/L (98-107); Estimated GFR 54.39 (mL/min/1.73m2); Glucose 127 mg/dL (74-106); Potassium 4.3 mmol/L (3.5-5.1); Sodium 140 mmol/L (136-145); Total Protein 7.2 g/dL (6.4-8.2)
[2024-04-26] MEDS: Normal Saline - Diluent 50 ML VIAL IJ (16:12)
[2024-04-26] MEDS: Omnipaque 350 MG/ML 500 ML BTL-Imaging package IJ (16:18)
== END ==
PROVIDERS: PCP Nurse Practitioner Family; Visit Provider Nurse Practitioner Family
DX: R10.9 Unspecified abdominal pain (principal); Z90.710 Acquired absence of both cervix and uterus; Z90.722 Acquired absence of ovaries, bilateral; Z90.79 Acquired absence of other genital organ(s); C54.1 Malignant neoplasm of endometrium; R18.8 Other ascites
CPT/HCPCS: 36591; 49082; 80053; 96372; 96523; 99284; 74177; 85025; 99283; J1885

== ENCOUNTER 2024-04-26 18:55 | Emergency (ER) | payer MEDICARE, OTHER, SELFPAY ==
[2024-04-26 19:01] VITALS: BP 172/92; PULSE 116; RESP 16; TEMP 36.1; O2SAT 96
--- NOTE | 2024-04-26 19:26 | ED.GENADUL_ITS ---
Discharge Plan Disposition Patient Disposition: Home Condition: Stable Discharge Details Clinical Impression: Abdominal pain, Ascites, Cancer of omentum Primary Care Provider: Sergio Daniels ED Provider: David Villa Home Meds and New Rx's Prescriptions: Continued acetaminophen [Tylenol Extra Strength] 500 mg tablet 1,000 mg PO Q6H PRN lidocaine 4 % adhesive patch,medicated 1 patch topical DAILY PRN duloxetine 20 mg capsule,delayed release(DR/EC) 20 mg PO DAILY spironolactone 25 mg tablet 12.5 mg PO DAILY Qty: 90 3RF glipizide 5 mg tablet 5 mg PO DAILY Qty: 90 4RF Rx Instructions: changed mind, go back to once a day (DME) OneTouch Verio test strips Strip See Rx Instructions .ROUTE .MEDSUPPLY Qty: 200 4RF Rx Instructions: Check blood sugar twice a day (DME) lancets [BD Ultra Fine Lancets] 33 gauge misc See Rx Instructions .ROUTE .MEDSUPPLY Qty: 200 4RF Rx Instructions: Check blood sugar twice a day (DME) blood-glucose meter [OneTouch Verio Reflect Meter] Misc See Rx Instructions .Route Qty: 1 0RF Rx Instructions: As directed lisinopril 5 mg tablet See Rx Instructions .ROUTE .COMPLEX Qty: 90 1RF Dose Instruction: TAKE ONE TABLET BY MOUTH EVERY DAY Rx Instructions: TAKE ONE TABLET BY MOUTH EVERY DAY metoprolol succinate 200 mg tablet extended release 24 hr 200 mg PO DAILY Qty: 90 4RF Discharge Instructions Additional Instructions: You have metastases on the omentum in your abdomen and this has caused fluid in your belly Follow-up with your oncology team at [facility] If you develop fevers, feel more ill or have severe worsening pain return to the emergency department for reevaluation HPI General Mode of arrival: ambulatory . Date/Time Provider Initiated Documentation: 04/26/24 18:58 . Limitations to Documentation: no limitations . Information obtained by: patient . History of Present Illness 68 year old F presents to the emergency department with the chief complaint of abdominal pain, described as moderate, Quality is described as aching, and is localized to the abdomen. Patient started experiencing this month(s) (1) and it has been constant. No relieving factors improve symptom(s), No exacerbating factors reported . Patient notes no other symptoms.. Patient did receive the following treatments prior to arrival, none Related Data Home Medications ?Medication ?Instructions ?Recorded ?Confirmed acetaminophen 500 mg tablet 1,000 mg PO Q6H PRN 01/02/23 04/26/24 (Tylenol Extra Strength) blood sugar diagnostic (OneTouch #200 ea 05/01/23 04/26/24 Verio test strips) lancets 33 gauge (BD Ultra Fine #200 ea 05/01/23 04/26/24 Lancets) blood-glucose meter (OneTouch #1 ea 05/12/23 04/26/24 Verio Reflect Meter) lisinopril 5 mg tablet See Rx Instructions .Route 10/19/23 04/26/24 .COMPLEX #90 tabs metoprolol succinate 200 mg 200 mg PO DAILY #90 tab-caps 11/04/23 04/26/24 tablet,extended release 24 hr duloxetine 20 mg capsule,delayed 20 mg PO DAILY 11/20/23 04/26/24 release lidocaine 4 % topical patch 1 patch topical DAILY PRN 11/20/23 04/26/24 spironolactone 25 mg tablet 12.5 mg (1/2 x 25 mg) PO DAILY #90 11/20/23 04/26/24 tabs glipizide 5 mg tablet 5 mg PO DAILY #90 tabs 02/17/24 04/26/24 Previous Rx's ?Medication ?Instructions ?Recorded blood sugar diagnostic (OneTouch #200 ea 05/01/23 Verio test strips) lancets 33 gauge (BD Ultra Fine #200 ea 05/01/23 Lancets) blood-glucose meter (OneTouch #1 ea 05/12/23 Verio Reflect Meter) lisinopril 5 mg tablet See Rx Instructions .Route 10/19/23 .COMPLEX #90 tabs metoprolol succinate 200 mg 200 mg PO DAILY #90 tab-caps 11/04/23 tablet,extended release 24 hr spironolactone 25 mg tablet 12.5 mg (1/2 x 25 mg) PO DAILY #90 11/20/23 tabs glipizide 5 mg tablet 5 mg PO DAILY #90 tabs 02/17/24 Allergies Allergy/AdvReac Type Severity Reaction Status Date / Time hydrochlorothiazide Allergy Severe ILLNESS, Verified 04/26/24 19:11 hives metformin Allergy Severe Skin Rash Verified 04/26/24 19:11 amlodipine Allergy Unknown HIVES Verified 04/26/24 19:11 gabapentin AdvReac Unknown rash, sick Verified 04/26/24 19:11 stomach General Stated Complaint: Abd Prob ASHOK: 3 Review of Systems All systems reviewed & are unremarkable except as noted in HPI and below Constitutional Constitutional: Denies chills and Denies fever(s) Cardiovascular Cardiovascular: Denies chest pain and Denies dyspnea Respiratory Respiratory: Denies cough and Denies dyspnea Gastrointestinal Gastrointestinal: Reports abdominal pain and Denies vomiting Musculoskeletal Musculoskeletal: Denies joint swelling Exam Const General: no acute distress Orientation: alert HENMT Head: normal to inspection Ears: external ears normal General nose exam: external nose normal Mouth: moist mucous membranes Eyes General: appearance normal, both eyes and all related structures Neck Neck: normal visual inspection Resp Effort & Inspection: normal respiratory effort and able to speak in complete sentences Cardio Rate: regular rate GI Palpation: not firm and no guarding Skin General skin exam: no rashes or lesions noted Neuro General: patient alert and patient oriented x3 Extrem General: normal to inspection Psych Mental Status: mental status grossly normal Course Vital Signs Vital signs: Vital Signs Temperature 36.1 C L 04/26/24 19:01 Pulse 116 H 04/26/24 19:01 Respiratory Rate 16 04/26/24 19:01 Blood Pressure 172/92 H 04/26/24 19:01 Pulse Oximetry 96 04/26/24 19:01 Temperature 36.1 C L 04/26/24 19:01 Temperature Source Temporal Artery Scan 04/26/24 19:01 Pulse 116 H 04/26/24 19:01 Respiratory Rate 16 04/26/24 19:01 Respiratory Effort Normal 04/26/24 19:09 Blood Pressure 172/92 H 04/26/24 19:01 Pulse Oximetry 96 04/26/24 19:01 Oxygen Delivery Method Room Air 04/26/24 19:01 Oxygen Flow Rate 0 04/26/24 19:01 Pain Level 7 04/26/24 19:01 Procedures Paracentesis Time Out Performed: Yes Local Anesthetic: Lidocaine 1% and with Epi Amount of anesthesia used (mL): 8 Fluid: clear Post Procedure Exam: awake, alert Patient Tolerated Procedure: well Complications: none Medical Decision Making 67-year-old female with a history of uterine cancer status post hysterectomy and bilateral salpingo-oophorectomy has been in remission from this for approximately 8 to 9 months per patient comes in with 1 month of increasing gradual lower abdominal discomfort. She had a CT today with her PCP that showed large amount of ascites as well as omental caking consistent with probable omental metastases. There is no evidence of bowel obstruction or other surgical pathology. Her PCP called with results tonight she came here for evaluation. She denies any fever, chest pain, vomiting. She has a soft with mildly distended abdomen. Mild tenderness in the lower belly. Discussed results with her and that it is usually a poor prognostic indicator with these findings. I offered to perform a paracentesis but also advised that this usually does rapidly return and requires frequent paracentesis. She wants to wait and decide if she would like to have this done, will order dose of Toradol and reassess. Patient requested to try and have a therapeutic tap done to help relieve some of her pressure, after consenting her for the procedure I marked the location of the left lower abdomen for packing and if she did have visible area with drainable amount of fluid. I anesthetized clean the area and using sterile technique inserted needle but was unable to get about 100 cc out. She had no complications during this. She will follow-up with her oncology team at [facility], return precautions given Differential Diagnosis Differential Diagnosis: metasases, peritoneall carcinomatosis, ascities Medical Records Medical records reviewed: Yes I reviewed the patient's medical records. Quality:SDOH Health Related Social Needs: No Data to Display PFSH All Active Problems (Updated 04/26/24 @ 19:31 by David Villa MD) Cancer of omentum (Acute) Ascites (Acute) Abdominal pain (Acute) Abdominal pain (Acute) Status post total hysterectomy and bilateral salpingo-oophorectomy (BSO) (Acute ~01/06/23) Laparoscopic Pelvic/para-aortic lymph node dissection for high grade serous endometrial carcinoma Type 2 diabetes mellitus (Acute) Renal cyst (Acute) Pulmonary hypertension (Acute) Right ventricular dysfunction (Acute) Lung nodule (Acute) Left adrenal mass (Acute) Pulmonary embolism (Chronic) Primary osteoarthritis, left shoulder (Chronic) s/p left reverse TSA DOS: 07/10/22 Intra-articular injection: 03/06/2022; 12/05/2021 Right shoulder pain (Acute) Finger stiffness (Acute) HTN (hypertension) (Chronic) Left knee pain (Acute) Ankle fracture (Acute) Low back pain (Acute) Family history of coronary artery disease in father (Chronic) Urge incontinence of urine (Chronic) Hyperlipidemia (Chronic) Increased BMI (Acute) Depressive disorder (Acute) Anxiety (Acute) Allergic conjunctivitis and rhinitis (Chronic 04/12/18) This was caused by birds and once rid of them, she has no symptoms. Medical History Endometrial cancer Dyspnea Rhinosinusitis Family history of diabetes mellitus in mother Acute sinusitis Newly diagnosed diabetes Abnormal vaginal bleeding Thickened endometrium Tendinitis of long head of biceps brachii of left shoulder Contracture of left shoulder Prediabetes IFG (impaired fasting glucose) Hyperglycemia Depressive disorder Anxiety Benign hypertension Surgical History Hx of tonsillectomy Excision, Lesion (11/20/16) sebaceous cyst ANKLE FX (~2005) pin and plate hardware in ankle/leg Family History Mother , age 94 Essential hypertension Heart disease Hyperlipidemia Stroke Father , age 63 Essential hypertension Heart disease Hyperlipidemia Stroke Lung cancer Throat cancer Sister Diabetes Essential hypertension Brother Essential hypertension Asthma Maternal Grandfather , age 42 Essential hypertension Heart disease Angela Gehrigs disease Paternal Grandfather , in his 60s No problems noted. Maternal Grandmother , Approx age 62-65 Heart disease Stroke Paternal Grandmother , In her 60s Accident - struck by car when walking No problems noted. Son No problems noted. Social History Smoking/Tobacco Use Status: Never Second Hand Exposure: Yes Smoking risk assessment performed?: Yes Alcohol Intake: former Drug use: Never Substance use type: does not use Caregiver/Support person: No Household members: family Housing: house Communication Needs: None Do you need help understanding health information?: Never Pets and animals: Yes Pets and animals: cat(s), dog(s) and fish Sexually active: No Do you think of yourself as: straight/heterosexual Current gender identity: female What is your relationship status?: How often do you talk on the phone with friends or family?: three or more times per week How often do you get together with friends or relatives?: decline to answer How often do you attend denominational or zoroastrianism services?: decline to answer Do you belong to any clubs or organized social groups?: yes Panel score (0-1 are the most socially isolated patients): 2 What type of physical activity do you participate in: none Frequency: decline to answer Jenni/Uatsdin: None Special jenni needs: No Seatbelt use: always Helmet use: Yes Helmet use: always Drive intox or ride w/intox driver education road instructor: No Do you feel safe at home: Yes Do you feel safe in your relationship?: Yes
[2024-04-26] MEDS: Ketorolac 15 MG/ML VIAL IM (19:43)
[2024-04-26 20:30] VITALS: BP 172/92; PULSE 96; RESP 16; TEMP 36.1; O2SAT 96
== END 2024-04-26 20:31 | disposition home or self-care (01) ==
PROVIDERS: Emergency Provider Emergency Medicine; PCP Nurse Practitioner Family
DX: R10.30 Lower abdominal pain, unspecified (principal); R18.8 Other ascites; C48.1 Malignant neoplasm of specified parts of peritoneum; I10 Essential (primary) hypertension; Z79.84 Long term (current) use of oral hypoglycemic drugs; E11.9 Type 2 diabetes mellitus without complications
CPT/HCPCS: 49082; 96372; 99284; 99283; J1885

== ENCOUNTER → 2024-05-12 12:47 | Outpatient (CLI) | payer MEDICARE, OTHER, SELFPAY ==
--- NOTE | 2024-05-12 11:30 | DI.CT_ITS ---
Exam(s) CT CHEST PE CTA EXAM: CT CHEST PE CTA CLINICAL HISTORY: acute SOB/hx of PE/stage 4 endometrial CA, R06.00-dyspnea, I26.99,. TECHNIQUE: Imaging Protocol: CT angiography of the chest was performed using pulmonary embolus gokul col. Multi planar reconstructions were performed. CONTRAST MATERIAL: Intravenous: Omnipaque 350 Contrast volume: 100 cc COMPARISON: CT CT CHEST ABDOMEN PELVIS W CONTRAST (GENERIC) from 06/29/[address] CHEST PE CTA from 08/12/2023 FINDINGS: CHEST: Distal tip of right subclavian Port-A-Cath is at SVC-RA junction. PULMONARY ARTERIES: There are no intraluminal filling defects to suggest acute pulmonary emboli. LUNGS: There are no infiltrates nor evidence of pulmonary infarction.. Some platelike atelectasis or scarring is noted in the bilateral lung bases.. There are no metastatic appearing lung nodules and t here are no pleural effusions. MEDIASTINUM: There is no hilar nor mediastinal adenopathy. Visualized thyroid unremarkable. CARDIAC: Heart size is upper normal. There is no pericardial effusion.Caliber of the thoracic aorta is within normal limits. No evidence of dissection. There is no significant shift of the interventri cular septum. PARTIALLY VISUALIZED UPPERMOST ABDOMEN: Left adrenal gland nodule again noted. Measures approximatel y 2.8 x 2.5 cm, unchanged. Right adrenal gland unremarkable. OSSEOUS: Left shoulder prosthesis. No fractures. No significant osseous lesions. IMPRESSION: 1. No evidence of acute pulmonary emboli. No evidence of pulmonary infarction.No pleural effusions. Bilateral platelike atelectasis in the lung bases. No ominous lung nodules. 2. Left adrenal nodule again noted. RADIATION DOSE DELIVERED: Total DLP DATA REPOSITORY: All CT scans at this facility are submitted to the National Radiology Data Registry (NRDR) Dose Index Registry (DIR) with the [employer] (ACR). RADIATION OPTIMIZATION: All CT scans at this facility use at least one of these dose optimization te chniques: automated exposure control; mA and/or kV adjustment per patient size (includes targeted exa ms where dose is matched to clinical indication); or iterative reconstruction.
[2024-05-12] MEDS: Normal Saline Flush 10 ML SYR IVP (12:56)
[2024-05-12] MEDS: Omnipaque 350 MG/ML 100 ML BTL IJ (13:07)
[2024-05-12] MEDS: Normal Saline - Diluent 50 ML VIAL IJ (13:08)
== END ==
PROVIDERS: PCP Nurse Practitioner Family; Visit Provider Surgery
DX: R06.00 Dyspnea, unspecified (principal); I26.99 Other pulmonary embolism without acute cor pulmonale; R63.8 Other symptoms and signs concerning food and fluid intake; E11.9 Type 2 diabetes mellitus without complications; C79.9 Secondary malignant neoplasm of unspecified site; C54.1 Malignant neoplasm of endometrium; D35.02 Benign neoplasm of left adrenal gland; J98.11 Atelectasis
CPT/HCPCS: 71275; 96523; J3490

== ENCOUNTER 2024-05-20 01:21 | Outpatient (RCR) | payer MEDICARE, OTHER, SELFPAY ==
[2024-05-20 11:11] LABS: HCT 37.3 % (36.0-46.0); HGB 11.8 g/dL (11.2-15.7); MCHC 31.6 % (32.0-36.0); MCV 88 fL (80-95); MPV 9.5 fL (8.0-11.0); Platelet Count 442 10^3/uL (130-400); RBC 4.22 10^6/uL (3.93-5.22); RDW 12.9 % (11.7-14.6); RDW-SD 41.9 fL; WBC 10.17 10^3/uL (4.4-10.8)
[2024-05-20] MEDS: Normal Saline Flush 10 ML SYR IVP (11:22)
== END 2024-06-04 23:59 | disposition home or self-care (01) ==
LOC: INF 01:21
PROVIDERS: PCP Nurse Practitioner Family; Visit Provider Surgery
DX: R18.8 Other ascites (principal); C54.1 Malignant neoplasm of endometrium; C79.9 Secondary malignant neoplasm of unspecified site; R25.2 Cramp and spasm
CPT/HCPCS: 36591; 85027; 85610

== ENCOUNTER 2024-05-20 11:02 | Day surgery (SDC) | payer MEDICARE, OTHER, SELFPAY ==
[2024-05-20 11:44] VITALS: BP 129/83; PULSE 95; RESP 18; TEMP 36.2; O2SAT 97
[2024-05-20] MEDS: LORazepam 2 MG/ML VIAL 0.5 MG IVP (13:01)
[2024-05-20] MEDS: ceFAZolin 3,000 MG in Normal Saline 100 ML 200 MG IVPB (13:02)
--- NOTE | 2024-05-20 13:05 | W.PM.DSUDISC ---
Date of service: 05/20/24 Time of Service: 13:05 Discharge Plan Disposition Patient Disposition: Home Condition: Good Discharge Details Reason For Visit: Paracentesis Attending Provider: Tennille Pryor Primary Care Provider: Sergio Daniels Home Meds and New Rx's Prescriptions: No Action acetaminophen [Tylenol Extra Strength] 500 mg tablet 1,000 mg PO Q6H PRN lidocaine 4 % adhesive patch,medicated 1 patch topical DAILY PRN duloxetine 20 mg capsule,delayed release(DR/EC) 20 mg PO DAILY spironolactone 25 mg tablet 12.5 mg PO DAILY Qty: 90 3RF glipizide 5 mg tablet 5 mg PO DAILY Qty: 90 4RF Rx Instructions: changed mind, go back to once a day ibuprofen 200 mg tablet 400 mg PO Q6H PRN oxycodone 5 mg tablet 5 mg PO Q4H MDD 6 PRN (Reason: cancer pain) Qty: 30 0RF Rx Instructions: will cause constipation docusate sodium [Colace] 100 mg capsule 100 mg PO BID Qty: 90 6RF (DME) OneTouch Verio test strips Strip See Rx Instructions .ROUTE .MEDSUPPLY Qty: 200 4RF Rx Instructions: Check blood sugar twice a day (DME) lancets [BD Ultra Fine Lancets] 33 gauge misc See Rx Instructions .ROUTE .MEDSUPPLY Qty: 200 4RF Rx Instructions: Check blood sugar twice a day (DME) blood-glucose meter [OneTouch Verio Reflect Meter] Misc See Rx Instructions .Route Qty: 1 0RF Rx Instructions: As directed metoprolol succinate 200 mg tablet extended release 24 hr 200 mg PO DAILY Qty: 90 4RF lisinopril 5 mg tablet See Rx Instructions .ROUTE .COMPLEX Qty: 90 1RF Dose Instruction: TAKE ONE TABLET BY MOUTH EVERY DAY Rx Instructions: TAKE ONE TABLET BY MOUTH EVERY DAY ondansetron HCl 8 mg tablet Patient Comments: TAKE 1 TABLET BY MOUTH EVERY 8 HOURS NEEDED FOR NAUSEA/ VOMITING. DO NOT TAKE WITHIN THE FIRST 3 DAYS AFTER CHEMOTHERAPY prochlorperazine maleate 10 mg tablet Patient Comments: TAKE 1 TABLET BY MOUTH EVERY 6 HOURS ON SCHEDULE FOR THE FIRST 3 DAYS AFTER CHEMOTHERAPY. THEREAFTER, TAKE 1 TABLET EVERY 6 HOURS NEEDED dexamethasone 4 mg tablet Patient Comments: THE DAY BEFORE CHEMOTHERAPY, TAKE 2 TABLETS IN THE MORNING AND 2 TABLETS IN THE EVENING. FOR 2 DAYS AFTER CHEMOTHERAPY, TAKE 2 TABLETS TWO T Discharge Instructions Additional Instructions: A paracentesis is a procedure to remove extra fluid from your belly (abdomen). This fluid buildup in the abdomen is called ascites. This fluid may be removed to decrease abdominal pressure or to examine the fluid in the laboratory. Fluid buildup in your abdomen can sometimes cause problems with your bowels and breathing if it is not removed. What should I expect after the paracentesis? You might notice there is less tightness around your abdomen. You will be able to breathe better, which should help you feel more comfortable. How do I care for myself at home? ?? If you have pain after the procedure, your primary care provider can prescribe or recommend appropriate medications. ? It is normal for a small amount of fluid to leak from the puncture site. Keep the area dry and covered to prevent infection. ?? After 24 hours, you can remove your bandage and shower. You can wash the needle site gently with soap and warm water. ? Do not tub bath or submerge in water for three days. ?? Limit your activity for the rest of the day. -Call the office when you feel you need to have the procedure done again. -Cut suture out in 5 days time Nutritional tips ?? Eat small, frequent and protein rich meals throughout the day (every 2 ? 4 hours) ? Limit added salt and high sodium foods ? Avoid alcohol When to get help ?Go to the ER if you have any of the following: ?? Fever above 100.4 ?F (38.0 ?C) ? Bleeding from the puncture site ?? Difficulty breathing ? Increased pain, redness, or swelling at the puncture site ?? Unable to produce urine Activity:: Activity as Tolerated Remove Dressings/Wound Care:: 24 hours Shower/Bathe:: 24 hours Diet:: As Tolerated DS: Diagnosis Discharge Diagnosis (1) HTN (hypertension): Status: Chronic (2) Pulmonary hypertension: Status: Acute (3) Right ventricular dysfunction: Status: Acute (4) Hyperlipidemia: Status: Chronic (5) Pulmonary embolism: Status: Chronic (6) Type 2 diabetes mellitus: Status: Acute (7) Increased BMI: Status: Acute (8) Ascites, malignant: Status: Acute (9) International Federation of Gynecology and Obstetrics (FIGO) stage IVB malignant neoplasm of endometrium: Status: Acute (10) Metastatic cancer: Status: Acute (11) Cancer related pain: Status: Acute (12) Immunosuppression due to drug therapy: Status: Acute Asessment and Plan: They are having no nausea or vomiting. They are tolerating liquids and a snack. The pt is not having any chest pain or SOB.? Their pain is adequately controlled. They have been able to urinate.? ?HEENT:? no eye pain/drainage/redness/swelling. Mild sore throat ?Cardio- NSR, no chest pain, BP stable- see VS record ?Pulm: no sob or productive cough. No hemoptysis ?Incision- dressing is c/d/i w/ no excessive bleeding or drainage ?I discussed with the patient the findings at the time of surgery and the patient?s progress. ?We reviewed expectations at home; what the patient could expect for recovery time, and in the post-operative period.? We discussed the importance of walking to avoid blood clots and pneumonia.? We discussed and reviewed the patient's post-operative wound care and dressing needs.?? We reviewed their step-lópez pain management plan, Rx called to the pharmacy of their choice.? We reviewed activity and limitations-see discharge instructions. We reviewed warning signs, and when to seek medical attention- see d/c instructions.?? Patient was given a postoperative follow-up appointment. Patient verbalized understanding of their postoperative instructions, how do to take care of themselves and their incision, and the pain management plan. Please see discharge instructions.?
[2024-05-20] MEDS: Normal Saline Flush 10 ML SYR IV (13:19)
[2024-05-20] MEDS: Ondansetron 4 MG/2 ML VIAL (13:19)
[2024-05-20 13:51] VITALS: BP 132/72; PULSE 92; RESP 16; TEMP 36.5; O2SAT 96
--- NOTE | 2024-05-20 14:07 | W.PM.OP ---
Date of service: 05/20/24 Time of Service: 14:08 Operative Note Operative Note DATE OF PROCEDURE: 05/20/24 PRE-OP DIAGNOSIS: Malignant ascites from widely metastatic endometrial cancer POST-OP DIAGNOSIS: same PROCEDURE: Paracentesis SURGEON: Tennille Pryor ANESTHESIA TYPE: Local By Surgeon Refer to Anesthesia Record ESTIMATED BLOOD LOSS: 1 PATHOLOGY: none sent COMPLICATIONS: None Patient was transported to: same day Procedure Description: Informed consent is obtained, explaining benefits and risks of the procedure including but not limited to: bleeding/infections/damage to bowels or blood vessels/chronic drainage or leakage/need for repeat procedure/reactions to anesthetics.?? The patient is brought to the procedure room and placed in the supine position.?? A time-out is done.? Ultrasound is used to localize the pocket of fluid.? The area is prepped and draped in the usual sterile fashion using a ChloraPrep scrub solution.? 10 cc's of 1% Lidocaine with epinephrine is used for local anesthetization.? The abdomen is punctured and the catheter is inserted.?3.1 liters of light yellow fluid is evacuated today.? The catheter is removed.? Pressure dressing is applied.? The patient tolerated the procedure well without complication and transferred to recovery in stable condition.?
[2024-05-20] MEDS: Normal Saline Flush 10 ML SYR IVP (14:10)
== END 2024-05-20 14:27 | disposition home or self-care (01) ==
PROVIDERS: PCP Nurse Practitioner Family; Visit Provider Surgery
PROC: 0W9G3ZZ Drainage of Peritoneal Cavity, Percutaneous Approach (ICD-10-PCS; CPT 49082; principal; 2024-05-20 12:15)
DX: C78.6 Secondary malignant neoplasm of retroperitoneum and peritoneum (principal); C54.1 Malignant neoplasm of endometrium; R18.0 Malignant ascites
CPT/HCPCS: 49083; 36591; 85027; 85610; J0690; J2060; J2405

== ENCOUNTER 2024-05-25 14:54 | Emergency (ER) | payer MEDICARE, OTHER, SELFPAY ==
[2024-05-25] VITALS (20 sets, daily range): BP systolic 108–127; BP diastolic 70–81; PULSE 92–120; RESP 20–22; TEMP 36.6–36.8; O2SAT 92–98
--- NOTE | 2024-05-25 15:15 | RT.EKG_ITS ---
APPROVED REPORT Exam: Resting ECG Reason for Exam: Abdominal pain Patient Location: E HR:117 bpm ECG Measurements Heart Rate 117 AXIS UT 142 P 39 QRSd 79 QRS 26 QT 324 T 70 QTc 453 Conclusion Sinus tachycardia Rate 117 No STEMI
--- NOTE | 2024-05-25 15:30 | DI.CT_ITS ---
Exam(s) CT ABDOMEN PELVIS WO/W EXAM: CT ABDOMEN PELVIS WO/W CLINICAL HISTORY: Abdominal pain on chemo TECHNIQUE: Imaging Protocol: Axial computed tomography images with coronal and sagittal reformatted images were created and reviewed. CONTRAST MATERIAL: Intravenous: Omnipaque 350 contrast volume:100 mL Oral: No COMPARISON: CT CT ABDOMEN PELVIS W from 04/26/2024 FINDINGS: There is infiltration of the contrast into the subcutaneous tissues of the upper right chest wall. A CT scan of the abdomen and pelvis without IV contrast was performed. The patient then returned to t he department and a CT scan of the abdomen and pelvis with IV contrast was administered after obtaini ng different IV access. ABDOMEN: Liver: There is decreased attenuation of the liver suggesting fatty infiltration. No measurable mass . Portal, Superior Mesenteric, and Splenic Veins: Unremarkable. Gallbladder and Biliary Tract: No radiodense calculus or dilation. Pancreas: Normal density, no abnormal calcifications or inflammatory process. Spleen: Normal. Adrenals: There is a stable 2.7 cm hypodense left adrenal nodule. The right adrenal gland is unremar kable. Kidneys: Normal size, contour and axis. No evidence of nephrolithiasis or obstructive uropathy. Ther e is a stable right renal cyst. No follow-up is recommended. Abdominal Aorta: Abdominal portion non-dilated. Atherosclerotic calcification is present. Bowel: There is diverticulosis of the colon without evidence of acute diverticulitis. There is no ev idence of bowel obstruction. No evidence of appendicitis. Peritoneal Cavity: There is again seen moderate abdominal pelvic ascites. Soft tissue is seen along the omentum consistent with metastatic disease/omental caking. There also appears to be metastatic d isease attached to the distal transverse colon. No free air. Lymph Nodes: Within normal limits. Bones: Within normal limits for the patient's age. No aggressive osseous lesions are present. Soft Tissues: Unremarkable. PELVIS: Bladder: Symmetric distention, no gross wall thickening. Reproductive Organs: Status post hysterectomy. Lymph Nodes: Within normal limits. Bones: Within normal limits for the patient's age. IMPRESSION: 1. Findings again seen of abdominal metastatic disease with omental caking and abdominal ascites. 2. No evidence of bowel obstruction or inflammation. 3. Findings were discussed with Dr. Ta at 6:09 p.m. on 05/25/2024. RADIATION DOSE DELIVERED: Total DLP Total DLP DATA REPOSITORY: All CT scans at this facility are submitted to the National Radiology Data Registry (NRDR) Dose Index Registry (DIR) with the [employer] (ACR). RADIATION OPTIMIZATION: All CT scans at this facility use at least one of these dose optimization te chniques: automated exposure control; mA and/or kV adjustment per patient size (includes targeted exa ms where dose is matched to clinical indication); or iterative reconstruction.
[2024-05-25 16:00] LABS: HCT 37.1 % (36.0-46.0); HGB 11.8 g/dL (11.2-15.7); Lactate 2.4 mmol/L (0.6-1.4); MCH 27.6 pg (27.0-33.0); MCHC 31.8 % (32.0-36.0); MCV 87 fL (80-95); MPV 9.5 fL (8.0-11.0); Platelet Count 332 10^3/uL (130-400); RBC 4.28 10^6/uL (3.93-5.22); RDW 12.9 % (11.7-14.6); RDW-SD 40.7 fL; WBC 3.14 10^3/uL (4.4-10.8)
[2024-05-25 16:10] LABS: Prothrombin Time 10.2 sec (9.1-11.1)
--- NOTE | 2024-05-25 16:10 | ED.GENADUL_ITS ---
Discharge Plan Disposition Patient Disposition: Home Condition: Stable Discharge Details Clinical Impression: Abdominal pain, Diarrhea, Hyperlipidemia, HTN (hypertension), Pulmonary embolism, Right ventricular dysfunction, Pulmonary hypertension, Type 2 diabetes mellitus, Status post total hysterectomy and bilateral salpingo-oophorectomy (BSO), Cancer of omentum, Ascites, [employer] of [employer]ne[employer] and Obstetric[employer] (FIGO) stage IVB malignant neoplasm of endometrium, Metastatic cancer , Immunosuppression due to drug therapy, Ascites, malignant Primary Care Provider: Sergio Daniels ED Provider: Carrie Olivier Home Meds and New Rx's Prescriptions: New ondansetron 4 mg tablet,disintegrating 4 mg PO Q8H PRNQty: 7 0RF ciprofloxacin HCl [Cipro] 500 mg tablet 500 mg PO BID 5 Days Qty: 10 0RF No Action acetaminophen [Tylenol Extra Strength] 500 mg tablet 1,000 mg PO Q6H PRN lidocaine 4 % adhesive patch,medicated 1 patch topical DAILY PRN duloxetine 20 mg capsule,delayed release(DR/EC) 20 mg PO DAILY spironolactone 25 mg tablet 12.5 mg PO DAILY Qty: 90 3RF glipizide 5 mg tablet 5 mg PO DAILY Qty: 90 4RF Rx Instructions: changed mind, go back to once a day ibuprofen 200 mg tablet 400 mg PO Q6H PRN oxycodone 5 mg tablet 5 mg PO Q4H MDD 6 PRN (Reason: cancer pain) Qty: 30 0RF Rx Instructions: will cause constipation docusate sodium [Colace] 100 mg capsule 100 mg PO BID Qty: 90 6RF (DME) OneTouch Verio test strips Strip See Rx Instructions .ROUTE .MEDSUPPLY Qty: 200 4RF Rx Instructions: Check blood sugar twice a day (DME) lancets [BD Ultra Fine Lancets] 33 gauge misc See Rx Instructions .ROUTE .MEDSUPPLY Qty: 200 4RF Rx Instructions: Check blood sugar twice a day (DME) blood-glucose meter [OneTouch Verio Reflect Meter] Misc See Rx Instructions .Route Qty: 1 0RF Rx Instructions: As directed metoprolol succinate 200 mg tablet extended release 24 hr 200 mg PO DAILY Qty: 90 4RF lisinopril 5 mg tablet See Rx Instructions .ROUTE .COMPLEX Qty: 90 1RF Dose Instruction: TAKE ONE TABLET BY MOUTH EVERY DAY Rx Instructions: TAKE ONE TABLET BY MOUTH EVERY DAY ondansetron HCl 8 mg tablet 8 mg PO PRN Patient Comments: TAKE 1 TABLET BY MOUTH EVERY 8 HOURS NEEDED FOR NAUSEA/ VOMITING. DO NOT TAKE WITHIN THE FIRST 3 DAYS AFTER CHEMOTHERAPY prochlorperazine maleate 10 mg tablet 10 mg PO Q6H PRN Patient Comments: TAKE 1 TABLET BY MOUTH EVERY 6 HOURS ON SCHEDULE FOR THE FIRST 3 DAYS AFTER CHEMOTHERAPY. THEREAFTER, TAKE 1 TABLET EVERY 6 HOURS NEEDED dexamethasone 4 mg tablet 2 mg PO .COMPLEX Patient Comments: THE DAY BEFORE CHEMOTHERAPY, TAKE 2 TABLETS IN THE MORNING AND 2 TABLETS IN THE EVENING. FOR 2 DAYS AFTER CHEMOTHERAPY, TAKE 2 TABLETS TWO T Rx Instructions: 2 mg orally in the AM 2 in the Evening for 2 days after chemo; Discharge Instructions Instructions: Abdominal Pain, Adult ED Additional Instructions: You were seen in the emergency department today for abdominal pain and diarrhea. In our department you had a full physical examination performed, had reassuring laboratory studies and a CT scan that did not show any changes from normal for you. You do not have an infection in your ascites, and likely have infectious diarrhea. Given that you are on chemotherapy and immunocompromise we have prescribed you an oral antibiotic to be taken for the next 5 days. We also provided you with medications for nausea to be taken as needed. You should take your pain medications as prescribed for ongoing pain. Your port unfortunately infiltrated during your CT scan, needs to be evaluated by your providers to ensure that it is still appropriate for use. Thank you for allowing us to be part of your care. HPI General Mode of arrival: ambulatory . Date/Time Provider Initiated Documentation: 05/25/24 15:01 . Limitations to Documentation: no limitations . Information obtained by: patient, family and old records reviewed . HPI Narrative: MDM: In brief, this is a 68-year-old female patient with a history of stage IV cancer complicated by malignant ascites, omental tumor burden, presenting for evaluation of 3 days of abdominal pain with diarrhea and nausea. My differential includes but is not limited to intra-abdominal abnormalities including SBP, bowel obstruction, extension of cancer burden. Consider diverticulitis, appendicitis, cholecystitis, hepatitis, pancreatitis, peptic ulcer disease/GERD. I considered perforation, mesenteric ischemia, less likely aortic disease. I considered urinary tract infections, nephrolithiasis, metabolic or electrolyte derangement, kidney injury, liver disease, anemia. The patient is reassuringly without fever to increase my concern for neutropenic fever though she is tachycardic which increases my concern for sepsis, bacteremia, central line infection in this immunocompromised patient. Will obtain cultures, laboratory studies to include CBC, CMP, lipase, lactate, UA, and will obtain a CT abdomen pelvis to better characterize any abnormalities. Depending on the amount of ascites we will discuss peritoneal fluid studies, and if the patient is to stool while in the emergency department would obtain a stool panel. ED Course: HPI: This is a 68-year-old female patient with a past medical history significant for stage IV endometrial cancer, malignant ascites, omental cancer, type 2 diabetes, pulmonary-pretension, history of PE not on anticoagulation, and hyperlipidemia who is presenting for evaluation of 3 days of abdominal pain. The patient reports that she went in for paracentesis on the , which seemed to go well. 2 days later she started to develop generalized sharp abdominal pain, associated with nausea and nonbloody diarrhea. She states that her pain has worsened, though she has not tried any medications other than Tylenol for management of the pain. States that she has not noted blood in her stool, has not had fever, has not been very hungry. Has been taking all of her medications as prescribed. Has never had ascitic fluid infection to her knowledge. Was started on antibiotics a few days ago prophylactically, is not sure what the name of that medication was but took it as prescribed. The patient reports that she has noted quite a bit of gas and bloating, no dysuria or hematuria reported. Exam: Gen: Awake and alert, in no apparent distress HEENT: Non-icteric sclera Neck: Supple Lungs: No apparent respiratory distress, normal respiratory effort. CV: Appears well perfused, strong distal pulses, heart rate tachycardic. Port right chest wall. Abdomen: Mildly distended but soft, generalized tenderness to palpation without rigidity, rebound, or guarding. The paracentesis site appears well-healed with some associated ecchymosis MSK: Moves 4 extremities without apparent limitation in ROM. No pedal edema Skin: Visualized skin without rashes, cyanosis. Neuro: Normal Gait, no obvious focal deficits or facial asymmetry. Speaks in full, clear sentences. Psych: Appropriate for situation. Related Data Home Medications ?Medication ?Instructions ?Recorded ?Confirmed acetaminophen 500 mg tablet 1,000 mg PO Q6H PRN 01/02/23 05/25/24 (Tylenol Extra Strength) blood sugar diagnostic (OneTouch #200 ea 05/01/23 05/25/24 Verio test strips) lancets 33 gauge (BD Ultra Fine #200 ea 05/01/23 05/25/24 Lancets) blood-glucose meter (OneTouch #1 ea 05/12/23 05/25/24 Verio Reflect Meter) metoprolol succinate 200 mg 200 mg PO DAILY #90 tab-caps 11/04/23 05/25/24 tablet,extended release 24 hr duloxetine 20 mg capsule,delayed 20 mg PO DAILY 11/20/23 05/25/24 release lidocaine 4 % topical patch 1 patch topical DAILY PRN 11/20/23 05/25/24 spironolactone 25 mg tablet 12.5 mg (1/2 x 25 mg) PO DAILY #90 11/20/23 05/25/24 tabs glipizide 5 mg tablet 5 mg PO DAILY #90 tabs 02/17/24 05/25/24 lisinopril 5 mg tablet See Rx Instructions .Route 04/29/24 05/25/24 .COMPLEX #90 tabs docusate sodium 100 mg capsule 100 mg PO BID #90 caps 05/12/24 05/25/24 (Colace) ibuprofen 200 mg tablet 400 mg PO Q6H PRN 05/12/24 05/25/24 oxycodone 5 mg tablet 5 mg PO Q4H PRN cancer pain #30 05/12/24 05/25/24 tabs dexamethasone 4 mg tablet 2 mg PO .COMPLEX 05/20/24 05/25/24 ondansetron HCl 8 mg tablet 8 mg PO PRN 05/20/24 05/25/24 prochlorperazine maleate 10 mg 10 mg PO Q6H PRN 05/20/24 05/25/24 tablet ciprofloxacin HCl 500 mg tablet 500 mg PO BID 5 days #10 tabs 05/25/24 (Cipro) ondansetron 4 mg disintegrating 4 mg PO Q8H PRN #7 tabs 05/25/24 tablet Previous Rx's ?Medication ?Instructions ?Recorded blood sugar diagnostic (OneTouch #200 ea 05/01/23 Verio test strips) lancets 33 gauge (BD Ultra Fine #200 ea 05/01/23 Lancets) blood-glucose meter (OneTouch #1 ea 05/12/23 Verio Reflect Meter) metoprolol succinate 200 mg 200 mg PO DAILY #90 tab-caps 11/04/23 tablet,extended release 24 hr spironolactone 25 mg tablet 12.5 mg (1/2 x 25 mg) PO DAILY #90 11/20/23 tabs glipizide 5 mg tablet 5 mg PO DAILY #90 tabs 02/17/24 lisinopril 5 mg tablet See Rx Instructions .Route 04/29/24 .COMPLEX #90 tabs docusate sodium 100 mg capsule 100 mg PO BID #90 caps 05/12/24 (Colace) oxycodone 5 mg tablet 5 mg PO Q4H PRN cancer pain #30 05/12/24 tabs ciprofloxacin HCl 500 mg tablet 500 mg PO BID 5 days #10 tabs 05/25/24 (Cipro) ondansetron 4 mg disintegrating 4 mg PO Q8H PRN #7 tabs 05/25/24 tablet Allergies Allergy/AdvReac Type Severity Reaction Status Date / Time hydrochlorothiazide Allergy Severe ILLNESS, Verified 05/20/24 11:35 hives metformin Allergy Severe Skin Rash Verified 05/20/24 11:35 amlodipine Allergy Unknown HIVES Verified 05/20/24 11:35 gabapentin AdvReac Unknown rash, sick Verified 05/20/24 11:35 stomach General Stated Complaint: Abd Prob ASHOK: 3 Course Vital Signs Vital signs: Vital Signs Temperature 36.8 C 05/25/24 14:59 Pulse 120 H 05/25/24 14:59 Respiratory Rate 20 05/25/24 14:59 Pulse Oximetry 98 05/25/24 14:59 Temperature 36.8 C 05/25/24 15:04 Temperature Source Tympanic 05/25/24 15:04 Pulse 120 H 05/25/24 15:04 Respiratory Rate 20 05/25/24 15:04 Respiratory Effort Normal 05/25/24 15:04 Blood Pressure 108/70 05/25/24 15:08 Pulse Oximetry 98 05/25/24 15:04 Oxygen Delivery Method Room Air 05/25/24 15:04 Oxygen Flow Rate 0 05/25/24 15:04 Pain Level 8 05/25/24 15:04 Lab/Test Results Lab/Test Results: 05/25/24 15:50 Blood Blood Culture - Pending 05/25/24 15:37 Blood Blood Culture - Pending Laboratory Tests Range/Units 05/25/24 15:50 VBG Lactate (0.6-1.4) mmol/L 2.4 H* Medical Decision Making Quality:SDOH Health Related Social Needs: No Data to Display PFSH All Active Problems (Updated 05/25/24 @ 20:37 by Carrie Olivier MD) Diarrhea (Acute) Abdominal pain (Acute) Cancer related pain (Acute) Acute dyspnea (Acute) Ascites, malignant (Acute) Immunosuppression due to drug therapy (Acute) Metastatic cancer (Acute) [employer] Federation of Gynecology and Obstetrics (FIGO) stage IVB malignant neoplasm of endometrium (Acute) Cancer of omentum (Acute) Ascites (Acute) Status post total hysterectomy and bilateral salpingo-oophorectomy (BSO) (Acute ~01/06/23) Laparoscopic Pelvic/para-aortic lymph node dissection for high grade serous endometrial carcinoma Type 2 diabetes mellitus (Acute) Renal cyst (Acute) Pulmonary hypertension (Acute) Right ventricular dysfunction (Acute) Lung nodule (Acute) Left adrenal mass (Acute) Pulmonary embolism (Chronic) Primary osteoarthritis, left shoulder (Chronic) s/p left reverse TSA DOS: 07/10/22 Intra-articular injection: 03/06/2022; 12/05/2021 Right shoulder pain (Acute) Finger stiffness (Acute) HTN (hypertension) (Chronic) Left knee pain (Acute) Ankle fracture (Acute) Low back pain (Acute) Family history of coronary artery disease in father (Chronic) Urge incontinence of urine (Chronic) Hyperlipidemia (Chronic) Increased BMI (Acute) Depressive disorder (Acute) Anxiety (Acute) Allergic conjunctivitis and rhinitis (Chronic 04/12/18) This was caused by birds and once rid of them, she has no symptoms. Medical History (Updated 05/25/24 @ 20:37 by Carrie Olivier MD) Abdominal pain Abdominal pain Dyspnea Rhinosinusitis Endometrial cancer Acute sinusitis Newly diagnosed diabetes Abnormal vaginal bleeding Thickened endometrium Tendinitis of long head of biceps brachii of left shoulder Contracture of left shoulder Prediabetes IFG (impaired fasting glucose) Hyperglycemia Family history of diabetes mellitus in mother Depressive disorder Anxiety Benign hypertension Surgical History (Updated 05/25/24 @ 20:37 by Carrie Olivier MD) History of abdominal paracentesis (~05/2024) Hx of tonsillectomy Excision, Lesion (11/20/16) sebaceous cyst ANKLE FX (~2005) pin and plate hardware in ankle/leg Family History Mother , age 94 Essential hypertension Heart disease Hyperlipidemia Stroke Father , age 63 Essential hypertension Heart disease Hyperlipidemia Stroke Lung cancer Throat cancer Sister Diabetes Essential hypertension Brother Essential hypertension Asthma Maternal Grandfather , age 42 Essential hypertension Heart disease Angela Gehrigs disease Paternal Grandfather , in his 60s No problems noted. Maternal Grandmother , Approx age 62-65 Heart disease Stroke Paternal Grandmother , In her 60s Accident - struck by car when walking No problems noted. Son No problems noted. Social History Smoking/Tobacco Use Status: Never Second Hand Exposure: Yes Smoking risk assessment performed?: Yes Alcohol Intake: former Drug use: Never Substance use type: does not use Caregiver/Support person: No Household members: family Housing: house Communication Needs: None Do you need help understanding health information?: Never Pets and animals: Yes Pets and animals: cat(s), dog(s) and fish Sexually active: No Do you think of yourself as: straight/heterosexual Current gender identity: female What is your relationship status?: How often do you talk on the phone with friends or family?: three or more times per week How often do you get together with friends or relatives?: decline to answer How often do you attend roman catholic or buddhist services?: decline to answer Do you belong to any clubs or organized social groups?: yes Panel score (0-1 are the most socially isolated patients): 2 What type of physical activity do you participate in: none Frequency: decline to answer Jenni/Restoration: None Special jenni needs: No Seatbelt use: always Helmet use: Yes Helmet use: always Drive intox or ride w/intox pack train driver: No Do you feel safe at home: Yes Do you feel safe in your relationship?: Yes
[2024-05-25 16:15] LABS: Absolute Lymphocyte Count 1.48 10^3/uL (1.2-3.4); Absolute Monocyte Count 0.44 10^3/uL (0.1-0.8); Absolute Neutrophil Count 1.22 10^3/uL (1.2-6.7); Atypical Lymphocytes % 6 %; Diff Comment Manual Differential; RBC Morphology Normal
[2024-05-25 16:20] LABS: ALT 27 U/L (14-59); AST 24 U/L (15-37); Albumin 2.5 g/dL (3.4-5.0); Alkaline Phosphatase 105 U/L (46-116); Anion Gap 9.5 mmol/L (3-11); BUN 20 mg/dL (7-18); CO2 23.5 mmol/L (21.0-32.0); CREATININE 1.1 mg/dL (0.55-1.02); Calcium 8.9 mg/dL (8.5-10.1); Chloride 104 mmol/L (98-107); Estimated GFR 54.39 (mL/min/1.73m2); Glucose 196 mg/dL (74-106); Lipase 27 U/L (16-77); Magnesium 1.4 mg/dL (1.8-2.4); Potassium 4.2 mmol/L (3.5-5.1); Sodium 137 mmol/L (136-145); Total Protein 6.2 g/dL (6.4-8.2); Troponin I < 50 ng/L (< or =60)
[2024-05-25 16:43] LABS: Bilirubin Negative (Negative); Blood Negative (Negative); Clarity Clear (Clear); Glucose Negative (Negative); Ketones Negative (Negative); Leukocyte Esterase Negative (Negative); Nitrite Negative (Negative); Specific Gravity >= 1.030 (1.005-1.025); Urobilinogen 0.2 mg/dL (Up to 0.2)
[2024-05-25] MEDS: Lactated Ringers 1,000 ML 1000 ML IV (16:53)
--- NOTE | 2024-05-25 17:00 | DI.CT_ITS ---
Exam(s) CT CHEST WO EXAM: CT CHEST WO CLINICAL HISTORY: Eval extravasated contrast. TECHNIQUE: Imaging protocol: Axial computed tomography images were obtained and coronal and sagittal reformatted images were created and reviewed. COMPARISON: CT CT CHEST PE ABD PELVIS W from 09/28/[address] CHEST W from 02/18/[address] CHEST PE CTA from 05/12/[address] ABDOMEN PELVIS WO/W from 05/25/2024 FINDINGS: The lung apices and soft tissues of the lower neck are not ideally visualized due to artifact from t he patient's left shoulder replacement. Tracheobronchial tree: Patent where visualized. No bronchiectasis is present. Pulmonary parenchyma: There are stable nodules in the lungs. No focal consolidating infiltrates are present. There is scarring again seen in the lingula. Mediastinum and Veronica: No dominant adenopathy or fluid collection. The esophagus is unremarkable. Thyroid gland: Unremarkable. Pleura: No effusion or pneumothorax. Heart: The heart is not dilated. Coronary artery calcifications are present. No pericardial effusion . Aorta: Thoracic aorta non-dilated. Lymph nodes: Within normal limits. Tubes, Catheters, and Lines: Patient has a right-sided catheter. The tip of the catheter is in good position at the junction of the superior vena cava and right atrium. Soft tissues: There is high density material seen in the subcutaneous region extending from the right supraclavicular region inferiorly into the upper anterior chest wall. The high-density material is seen in the region of the implanted central venous catheter. Bones:Within normal limits for the patient's age. Patient has a left total reverse shoulder replacem ent. No aggressive osseous lesions are identified. IMPRESSION: 1. There is contrast seen in the subcutaneous tissues around the right sided implanted port consisten t with extravasation. The extravasation occurred during the performance of the patient's CT scan of the abdomen and pelvis. The contrast is subcutaneous in location. Follow-up examination should be c onsidered to assess the integrity of the port. 2. Stable pulmonary nodules. 3. No acute pulmonary process. 4. Findings were discussed with the emergency department on the date of the examination. RADIATION DOSE DELIVERED: Total DLP Total DLP DATA REPOSITORY: All CT scans at this facility are submitted to the National Radiology Data Registry (NRDR) Dose Index Registry (DIR) with the [employer] (A[employer]). RADIATION OPTIMIZATION: All CT scans at this facility use at least one of these dose optimization te chniques: automated exposure control; mA and/or kV adjustment per patient size (includes targeted exa ms where dose is matched to clinical indication); or iterative reconstruction.
[2024-05-25] MEDS: Normal Saline - Diluent 50 ML VIAL IJ ×2 (17:03→17:29)
[2024-05-25] MEDS: Omnipaque 350 MG/ML 100 ML BTL IJ ×2 (17:04→17:29)
[2024-05-25] MEDS: Ondansetron 4 MG/2 ML VIAL IVP (17:11)
[2024-05-25] MEDS: MAGNESIUM SULFATE 2 GM/50 ML BAG IVINF (17:46)
[2024-05-25] MEDS: HYDROmorphone 2 MG TAB PO (19:23)
[2024-05-25] MEDS: HYDROmorphone 2 MG/ML SYR 0.5 MG IVP (19:23)
[2024-05-25] MEDS: Lidocaine 1% Multi-Dose W/EPI 1/100,000 10 ML VIAL IJ (19:51)
[2024-05-25 20:01] LABS: Clarity Cloudy; Mononuclear Cells 99 %; Nucleated Cells 490 uL (0); Polynuclear Cells 1 %; Source Peritoneal
[2024-05-25] MEDS: Normal Saline Flush 10 ML SYR IVP (20:01)
[2024-05-25] MEDS: Ciprofloxacin 500 MG TAB PO (20:42)
[2024-05-25] MEDS: Ondansetron O.D.T. 4 MG TABEF PO (20:43)
[2024-05-25] MEDS: Ondansetron O.D.T. 4 MG TABEF, 3 TABS/BTL PO (20:48)
--- NOTE | 2024-05-25 21:11 | W.ED.GENAD ---
Discharge Plan Disposition Patient Disposition: Home Condition: Stable Discharge Details Clinical Impression: Abdominal pain, Diarrhea, Hyperlipidemia, HTN (hypertension), Pulmonary embolism, Right ventricular dysfunction, Pulmonary hypertension, Type 2 diabetes mellitus, Status post total hysterectomy and bilateral salpingo-oophorectomy (BSO), Cancer of omentum, Ascites, [employer] of [employer]ne[employer] and Obstetric[employer] (FIGO) stage IVB malignant neoplasm of endometrium, Metastatic cancer, Immunosuppression due to drug therapy, Ascites, malignant Primary Care Provider: Sergio Daniels ED Provider: Carrie Olivier Home Meds and New Rx's Prescriptions: New ondansetron 4 mg tablet,disintegrating 4 mg PO Q8H PRNQty: 7 0RF ciprofloxacin HCl [Cipro] 500 mg tablet 500 mg PO BID 5 Days Qty: 10 0RF No Action acetaminophen [Tylenol Extra Strength] 500 mg tablet 1,000 mg PO Q6H PRN lidocaine 4 % adhesive patch,medicated 1 patch topical DAILY PRN duloxetine 20 mg capsule,delayed release(DR/EC) 20 mg PO DAILY spironolactone 25 mg tablet 12.5 mg PO DAILY Qty: 90 3RF glipizide 5 mg tablet 5 mg PO DAILY Qty: 90 4RF Rx Instructions: changed mind, go back to once a day ibuprofen 200 mg tablet 400 mg PO Q6H PRN oxycodone 5 mg tablet 5 mg PO Q4H MDD 6 PRN (Reason: cancer pain) Qty: 30 0RF Rx Instructions: will cause constipation docusate sodium [Colace] 100 mg capsule 100 mg PO BID Qty: 90 6RF (DME) OneTouch Verio test strips Strip See Rx Instructions .ROUTE .MEDSUPPLY Qty: 200 4RF Rx Instructions: Check blood sugar twice a day (DME) lancets [BD Ultra Fine Lancets] 33 gauge misc See Rx Instructions .ROUTE .MEDSUPPLY Qty: 200 4RF Rx Instructions: Check blood sugar twice a day (DME) blood-glucose meter [OneTouch Verio Reflect Meter] Misc See Rx Instructions .Route Qty: 1 0RF Rx Instructions: As directed metoprolol succinate 200 mg tablet extended release 24 hr 200 mg PO DAILY Qty: 90 4RF lisinopril 5 mg tablet See Rx Instructions .ROUTE .COMPLEX Qty: 90 1RF Dose Instruction: TAKE ONE TABLET BY MOUTH EVERY DAY Rx Instructions: TAKE ONE TABLET BY MOUTH EVERY DAY ondansetron HCl 8 mg tablet 8 mg PO PRN Patient Comments: TAKE 1 TABLET BY MOUTH EVERY 8 HOURS NEEDED FOR NAUSEA/ VOMITING. DO NOT TAKE WITHIN THE FIRST 3 DAYS AFTER CHEMOTHERAPY prochlorperazine maleate 10 mg tablet 10 mg PO Q6H PRN Patient Comments: TAKE 1 TABLET BY MOUTH EVERY 6 HOURS ON SCHEDULE FOR THE FIRST 3 DAYS AFTER CHEMOTHERAPY. THEREAFTER, TAKE 1 TABLET EVERY 6 HOURS NEEDED dexamethasone 4 mg tablet 2 mg PO .COMPLEX Patient Comments: THE DAY BEFORE CHEMOTHERAPY, TAKE 2 TABLETS IN THE MORNING AND 2 TABLETS IN THE EVENING. FOR 2 DAYS AFTER CHEMOTHERAPY, TAKE 2 TABLETS TWO T Rx Instructions: 2 mg orally in the AM 2 in the Evening for 2 days after chemo; Discharge Instructions Instructions: Abdominal Pain, Adult ED Additional Instructions: You were seen in the emergency department today for abdominal pain and diarrhea. In our department you had a full physical examination performed, had reassuring laboratory studies and a CT scan that did not show any changes from normal for you. You do not have an infection in your ascites, and likely have infectious diarrhea. Given that you are on chemotherapy and immunocompromise we have prescribed you an oral antibiotic to be taken for the next 5 days. We also provided you with medications for nausea to be taken as needed. You should take your pain medications as prescribed for ongoing pain. Your port unfortunately infiltrated during your CT scan, needs to be evaluated by your providers to ensure that it is still appropriate for use. Thank you for allowing us to be part of your care. HPI General Mode of arrival: ambulatory. Date/Time Provider Initiated Documentation: 05/25/24 15:01. Limitations to Documentation: no limitations. Information obtained by: patient, family and old records reviewed. HPI Narrative: MDM: In brief, this is a 68-year-old female patient with a history of stage IV cancer complicated by malignant ascites, omental tumor burden, presenting for evaluation of 3 days of abdominal pain with diarrhea and nausea. My differential includes but is not limited to intra-abdominal abnormalities including SBP, bowel obstruction, extension of cancer burden. Consider diverticulitis, appendicitis, cholecystitis, hepatitis, pancreatitis, peptic ulcer disease/GERD. I considered perforation, mesenteric ischemia, less likely aortic disease. I considered urinary tract infections, nephrolithiasis, metabolic or electrolyte derangement, kidney injury, liver disease, anemia. The patient is reassuringly without fever to increase my concern for neutropenic fever though she is tachycardic which increases my concern for sepsis, bacteremia, central line infection in this immunocompromised patient. Will obtain cultures, laboratory studies to include CBC, CMP, lipase, lactate, UA, and will obtain a CT abdomen pelvis to better characterize any abnormalities. Depending on the amount of ascites we will discuss peritoneal fluid studies, and if the patient is to stool while in the emergency department would obtain a stool panel. ED Course: Laboratory studies were reviewed by myself, and show a white blood cell count of 3 which is not outside of the range of normal for this patient, no anemia or thrombocytopenia appreciated. INR is 1, lactate is 2.4 the patient did receive a liter of IV fluids. Chemistry panel is without significant electrolyte abnormality other than a mild hypomagnesemia which was repleted intravenously. The patient had a very mild elevation in her BUN and creatinine to 20 and 1.1 respectively. No elevation liver enzymes appreciated, troponin was negative, and the urine was noninfectious. I independently interpreted the patient's CT, and discussed the findings with the radiologist. She has not unchanged burden of cancer, with malignant ascites but no acute changes from her prior imaging to explain her pain. Of note, during the CT the patient's implanted port did unfortunately infiltrate. IV contrast was appreciated on CT chest to be in the subcutaneous tissue, and will absorb without likely adverse effect. However, I did recommend to the patient that she have her port evaluated by her provider before it was used for chemotherapy given its questionable integrity after this procedure. I did provide the patient with medications for pain and nausea. I performed a diagnostic paracentesis, which showed red cloudy fluid with less than 250 PMNs and no bacteria on Gram stain, negative for SBP. Given her immunocompromise status and her dietary Carpenter, I did discuss antibiotic treatment with her, and at this time we have elected to start ciprofloxacin, which she will take for the next 5 days. At this time, the patient has had a full medical evaluation and is safe for discharge to home. They are hemodynamically stable, ambulatory, and tolerating PO. They are understanding of the follow-up plan and return precautions. They left our facility without incident. Carrie Olivier MD HPI: This is a 68-year-old female patient with a past medical history significant for stage IV endometrial cancer, malignant ascites, omental cancer, type 2 diabetes, pulmonary-pretension, history of PE not on anticoagulation, and hyperlipidemia who is presenting for evaluation of 3 days of abdominal pain. The patient reports that she went in for paracentesis on the , which seemed to go well. 2 days later she started to develop generalized sharp abdominal pain, associated with nausea and nonbloody diarrhea. She states that her pain has worsened, though she has not tried any medications other than Tylenol for management of the pain. States that she has not noted blood in her stool, has not had fever, has not been very hungry. Has been taking all of her medications as prescribed. Has never had ascitic fluid infection to her knowledge. Was started on antibiotics a few days ago prophylactically, is not sure what the name of that medication was but took it as prescribed. The patient reports that she has noted quite a bit of gas and bloating, no dysuria or hematuria reported. Exam: Gen: Awake and alert, in no apparent distress HEENT: Non-icteric sclera Neck: Supple Lungs: No apparent respiratory distress, normal respiratory effort. CV: Appears well perfused, strong distal pulses, heart rate tachycardic. Port right chest wall. Abdomen: Mildly distended but soft, generalized tenderness to palpation without rigidity, rebound, or guarding. The paracentesis site appears well-healed with some associated ecchymosis MSK: Moves 4 extremities without apparent limitation in ROM. No pedal edema Skin: Visualized skin without rashes, cyanosis. Neuro: Normal Gait, no obvious focal deficits or facial asymmetry. Speaks in full, clear sentences. Psych: Appropriate for situation. Related Data Home Medications ?Medication ?Instructions ?Recorded ?Confirmed acetaminophen 500 mg tablet 1,000 mg PO Q6H PRN 01/02/23 05/25/24 (Tylenol Extra Strength) blood sugar diagnostic (OneTouch #200 ea 05/01/23 05/25/24 Verio test strips) lancets 33 gauge (BD Ultra Fine #200 ea 05/01/23 05/25/24 Lancets) blood-glucose meter (OneTouch #1 ea 05/12/23 05/25/24 Verio Reflect Meter) metoprolol succinate 200 mg 200 mg PO DAILY #90 tab-caps 11/04/23 05/25/24 tablet,extended release 24 hr duloxetine 20 mg capsule,delayed 20 mg PO DAILY 11/20/23 05/25/24 release lidocaine 4 % topical patch 1 patch topical DAILY PRN 11/20/23 05/25/24 spironolactone 25 mg tablet 12.5 mg (1/2 x 25 mg) PO DAILY #90 11/20/23 05/25/24 tabs glipizide 5 mg tablet 5 mg PO DAILY #90 tabs 02/17/24 05/25/24 lisinopril 5 mg tablet See Rx Instructions .Route 04/29/24 05/25/24 .COMPLEX #90 tabs docusate sodium 100 mg capsule 100 mg PO BID #90 caps 05/12/24 05/25/24 (Colace) ibuprofen 200 mg tablet 400 mg PO Q6H PRN 05/12/24 05/25/24 oxycodone 5 mg tablet 5 mg PO Q4H PRN cancer pain #30 05/12/24 05/25/24 tabs dexamethasone 4 mg tablet 2 mg PO .COMPLEX 05/20/24 05/25/24 ondansetron HCl 8 mg tablet 8 mg PO PRN 05/20/24 05/25/24 prochlorperazine maleate 10 mg 10 mg PO Q6H PRN 05/20/24 05/25/24 tablet ciprofloxacin HCl 500 mg tablet 500 mg PO BID 5 days #10 tabs 05/25/24 (Cipro) ondansetron 4 mg disintegrating 4 mg PO Q8H PRN #7 tabs 05/25/24 tablet Previous Rx's ?Medication ?Instructions ?Recorded blood sugar diagnostic (OneTouch #200 ea 05/01/23 Verio test strips) lancets 33 gauge (BD Ultra Fine #200 ea 05/01/23 Lancets) blood-glucose meter (OneTouch #1 ea 05/12/23 Verio Reflect Meter) metoprolol succinate 200 mg 200 mg PO DAILY #90 tab-caps 11/04/23 tablet,extended release 24 hr spironolactone 25 mg tablet 12.5 mg (1/2 x 25 mg) PO DAILY #90 11/20/23 tabs glipizide 5 mg tablet 5 mg PO DAILY #90 tabs 02/17/24 lisinopril 5 mg tablet See Rx Instructions .Route 04/29/24 .COMPLEX #90 tabs docusate sodium 100 mg capsule 100 mg PO BID #90 caps 05/12/24 (Colace) oxycodone 5 mg tablet 5 mg PO Q4H PRN cancer pain #30 05/12/24 tabs ciprofloxacin HCl 500 mg tablet 500 mg PO BID 5 days #10 tabs 05/25/24 (Cipro) ondansetron 4 mg disintegrating 4 mg PO Q8H PRN #7 tabs 05/25/24 tablet Allergies Allergy/AdvReac Type Severity Reaction Status Date / Time hydrochlorothiazide Allergy Severe ILLNESS, Verified 05/20/24 11:35 hives metformin Allergy Severe Skin Rash Verified 05/20/24 11:35 amlodipine Allergy Unknown HIVES Verified 05/20/24 11:35 gabapentin AdvReac Unknown rash, sick Verified 05/20/24 11:35 stomach General Stated Complaint: Abd Prob ASHOK: 3 Course Vital Signs Vital signs: Vital Signs Temperature 36.8 C 05/25/24 14:59 Pulse 120 H 05/25/24 14:59 Respiratory Rate 20 05/25/24 14:59 Pulse Oximetry 98 05/25/24 14:59 Temperature 36.6 C 05/25/24 19:58 Temperature Source Tympanic 05/25/24 15:04 Pulse 92 H 05/25/24 19:58 Respiratory Rate 22 05/25/24 19:58 Respiratory Effort Normal 05/25/24 15:04 Blood Pressure 127/81 05/25/24 19:58 Blood Pressure Mean 89 05/25/24 19:56 Pulse Oximetry 96 05/25/24 19:58 Oxygen Delivery Method Room Air 05/25/24 15:04 Oxygen Flow Rate 0 05/25/24 15:04 Pain Level 2 05/25/24 19:58 Lab/Test Results Lab/Test Results: 05/25/24 19:18 Paracentesis Body Fluid Culture - Pending 05/25/24 19:18 Paracentesis Gram Stain - Final 05/25/24 18:25 Blood Blood Culture - Pending 05/25/24 15:50 Blood Blood Culture - Pending Laboratory Tests Range/Units 05/25/24 05/25/24 05/25/24 15:50 16:29 18:24 WBC (4.4-10.8) 10^3/uL 3.14 L RBC (3.93-5.22) 10^6/uL 4.28 Hgb (11.2-15.7) g/dL 11.8 Hct (36.0-46.0) % 37.1 MCV (80-95) fL 87 MCH (27.0-33.0) pg 27.6 MCHC (32.0-36.0) % 31.8 L RDW (11.7-14.6) % 12.9 Plt Count (130-400) 10^3/uL 332 MPV (8.0-11.0) fL 9.5 Immature Gran % % 0.0 Neutrophils % % 39.0 Lymphocytes % % 41.0 Atypical Lymphs % % 6 Monocytes % % 14.0 Eosinophils % % 0.0 Basophils % % 0.0 Nucleated RBC % (0.0-0.3) % 0.0 Absolute Neutrophils (1.2-6.7) 10^3/uL 1.22 Absolute Lymphocytes (1.2-3.4) 10^3/uL 1.48 Absolute Monocytes (0.1-0.8) 10^3/uL 0.44 Absolute Eosinophils (0.0-0.7) 10^3/uL 0.00 Absolute Basophils (0.0-0.2) 10^3/uL 0.00 RBC Morphology Normal PT (9.1-11.1) sec 10.2 INR (0.9-1.1) 1.0 VBG Lactate (0.6-1.4) mmol/L 2.4 H* Sodium (136-145) mmol/L 137 Potassium (3.5-5.1) mmol/L 4.2 Chloride (98-107) mmol/L 104 Carbon Dioxide (21.0-32.0) mmol/L 23.5 Anion Gap (3-11) mmol/L 9.5 BUN (7-18) mg/dL 20 H Creatinine (0.55-1.02) mg/dL 1.1 H Est GFR (CKD-EPI 2020) (mL/min/1.73m2) 54.39 Glucose (74-106) mg/dL 196 H Calcium (8.5-10.1) mg/dL 8.9 Magnesium (1.8-2.4) mg/dL 1.4 L Total Bilirubin (0.2-1.0) mg/dL 0.20 AST (15-37) U/L 24 ALT (14-59) U/L 27 Alkaline Phosphatase (46-116) U/L 105 Troponin I (< or =60) ng/L < 50 Cancelled Total Protein (6.4-8.2) g/dL 6.2 L Albumin (3.4-5.0) g/dL 2.5 L Lipase (16-77) U/L 27 Urine Color (Yellow) Yellow Urine Clarity (Clear) Clear Urine pH (5-8) 5.0 Ur Specific [place] (1.005-1.025) >= 1.030 H Urine Protein (Neg-Trace) mg/dL Trace Urine Ketones (Negative) mg/dL Negative Urine Blood (Negative) Negative Urine Nitrite (Negative) Negative Urine Bilirubin (Negative) Negative Urine Urobilinogen (Up to 0.2) mg/dL 0.2 Ur Leukocyte Esterase (Negative) Negative Urine Glucose (Negative) mg/dL Negative Fluid Source Fluid Color Fluid Clarity Fluid WBC Fld Polynuclear WBCs % Fluid Mononuclear Cell Fluid Other Cells Path Cons Comment Range/Units 05/25/24 05/25/24 18:27 19:18 WBC (4.4-10.8) 10^3/uL RBC (3.93-5.22) 10^6/uL Hgb (11.2-15.7) g/dL Hct (36.0-46.0) % MCV (80-95) fL MCH (27.0-33.0) pg MCHC (32.0-36.0) % RDW (11.7-14.6) % Plt Count (130-400) 10^3/uL MPV (8.0-11.0) fL Immature Gran % % Neutrophils % % Lymphocytes % % Atypical Lymphs % % Monocytes % % Eosinophils % % Basophils % % Nucleated RBC % (0.0-0.3) % Absolute Neutrophils (1.2-6.7) 10^3/uL Absolute Lymphocytes (1.2-3.4) 10^3/uL Absolute Monocytes (0.1-0.8) 10^3/uL Absolute Eosinophils (0.0-0.7) 10^3/uL Absolute Basophils (0.0-0.2) 10^3/uL RBC Morphology PT (9.1-11.1) sec INR (0.9-1.1) VBG Lactate (0.6-1.4) mmol/L Sodium (136-145) mmol/L Potassium (3.5-5.1) mmol/L Chloride (98-107) mmol/L Carbon Dioxide (21.0-32.0) mmol/L Anion Gap (3-11) mmol/L BUN (7-18) mg/dL Creatinine (0.55-1.02) mg/dL Est GFR (CKD-EPI 2020) (mL/min/1.73m2) Glucose (74-106) mg/dL Calcium (8.5-10.1) mg/dL Magnesium (1.8-2.4) mg/dL Total Bilirubin (0.2-1.0) mg/dL AST (15-37) U/L ALT (14-59) U/L Alkaline Phosphatase (46-116) U/L Troponin I (< or =60) ng/L Total Protein (6.4-8.2) g/dL Albumin (3.4-5.0) g/dL Lipase (16-77) U/L Urine Color (Yellow) Urine Clarity (Clear) Urine pH (5-8) Ur Specific [place] (1.005-1.025) Urine Protein (Neg-Trace) mg/dL Urine Ketones (Negative) mg/dL Urine Blood (Negative) Urine Nitrite (Negative) Urine Bilirubin (Negative) Urine Urobilinogen (Up to 0.2) mg/dL Ur Leukocyte Esterase (Negative) Urine Glucose (Negative) mg/dL Fluid Source Cancelled Peritoneal Fluid Color Cancelled Red Fluid Clarity Cancelled Cloudy Fluid WBC Cancelled 490 Fld Polynuclear WBCs % Cancelled 1 Fluid Mononuclear Cell Cancelled 99 Fluid Other Cells Cancelled Path Cons Comment Cancelled Procedures Paracentesis Time Out Performed: No Local Anesthetic: Lidocaine 1% and with Epi Amount of anesthesia used (mL): 2 Fluid: cloudy and Sent to Lab for Analysis Post Procedure Exam: awake, alert, normal BP, normal HR and normal SpO2 Patient Tolerated Procedure: well and no complications Complications: none Medical Decision Making Quality:SDOH Health Related Social Needs: No Data to Display PFSH All Active Problems (Updated 05/25/24 @ 20:37 by Carrie Olivier MD) Diarrhea (Acute) Abdominal pain (Acute) Cancer related pain (Acute) Acute dyspnea (Acute) Ascites, malignant (Acute) Immunosuppression due to drug therapy (Acute) Metastatic cancer (Acute) [employer] of Gyne[employer] and Obstetrics (FIGO) stage IVB malignant neoplasm of endometrium (Acute) Cancer of omentum (Acute) Ascites (Acute) Status post total hysterectomy and bilateral salpingo-oophorectomy (BSO) (Acute ~01/06/23) Laparoscopic Pelvic/para-aortic lymph node dissection for high grade serous endometrial carcinoma Type 2 diabetes mellitus (Acute) Renal cyst (Acute) Pulmonary hypertension (Acute) Right ventricular dysfunction (Acute) Lung nodule (Acute) Left adrenal mass (Acute) Pulmonary embolism (Chronic) Primary osteoarthritis, left shoulder (Chronic) s/p left reverse TSA DOS: 07/10/22 Intra-articular injection: 03/06/2022; 12/05/2021 Right shoulder pain (Acute) Finger stiffness (Acute) HTN (hypertension) (Chronic) Left knee pain (Acute) Ankle fracture (Acute) Low back pain (Acute) Family history of coronary artery disease in father (Chronic) Urge incontinence of urine (Chronic) Hyperlipidemia (Chronic) Increased BMI (Acute) Depressive disorder (Acute) Anxiety (Acute) Allergic conjunctivitis and rhinitis (Chronic 04/12/18) This was caused by birds and once rid of them, she has no symptoms. Medical History (Updated 05/25/24 @ 20:37 by Carrie Olivier MD) Abdominal pain Abdominal pain Dyspnea Rhinosinusitis Endometrial cancer Acute sinusitis Newly diagnosed diabetes Abnormal vaginal bleeding Thickened endometrium Tendinitis of long head of biceps brachii of left shoulder Contracture of left shoulder Prediabetes IFG (impaired fasting glucose) Hyperglycemia Family history of diabetes mellitus in mother Depressive disorder Anxiety Benign hypertension Surgical History (Updated 05/25/24 @ 20:37 by Carrie Olivier MD) History of abdominal paracentesis (~05/2024) Hx of tonsillectomy Excision, Lesion (11/20/16) sebaceous cyst ANKLE FX (~2005) pin and plate hardware in ankle/leg Family History Mother , age 94 Essential hypertension Heart disease Hyperlipidemia Stroke Father , age 63 Essential hypertension Heart disease Hyperlipidemia Stroke Lung cancer Throat cancer Sister Diabetes Essential hypertension Brother Essential hypertension Asthma Maternal Grandfather , age 42 Essential hypertension Heart disease Angela Gehrigs disease Paternal Grandfather , in his 60s No problems noted. Maternal Grandmother , Approx age 62-65 Heart disease Stroke Paternal Grandmother , In her 60s Accident - struck by car when walking No problems noted. Son No problems noted. Social History Smoking/Tobacco Use Status: Never Second Hand Exposure: Yes Smoking risk assessment performed?: Yes Alcohol Intake: former Drug use: Never Substance use type: does not use Caregiver/Support person: No Household members: family Housing: house Communication Needs: None Do you need help understanding health information?: Never Pets and animals: Yes Pets and animals: cat(s), dog(s) and fish Sexually active: No Do you think of yourself as: straight/heterosexual Current gender identity: female What is your relationship status?: How often do you talk on the phone with friends or family?: three or more times per week How often do you get together with friends or relatives?: decline to answer How often do you attend jainism or worship services?: decline to answer Do you belong to any clubs or organized social groups?: yes Panel score (0-1 are the most socially isolated patients): 2 What type of physical activity do you participate in: none Frequency: decline to answer Jenni/Confucianism: None Special jenni needs: No Seatbelt use: always Helmet use: Yes Helmet use: always Drive intox or ride w/intox truck driver's offsider: No Do you feel safe at home: Yes Do you feel safe in your relationship?: Yes
== END 2024-05-25 21:46 | disposition home or self-care (01) ==
PROVIDERS: Emergency Provider Emergency Medicine; PCP Nurse Practitioner Family
DX: R10.9 Unspecified abdominal pain (principal); R11.2 Nausea with vomiting, unspecified; R19.7 Diarrhea, unspecified; G89.3 Neoplasm related pain (acute) (chronic); R18.0 Malignant ascites; D84.821 Immunodeficiency due to drugs; C54.1 Malignant neoplasm of endometrium; C79.9 Secondary malignant neoplasm of unspecified site; Z92.21 Personal history of antineoplastic chemotherapy
CPT/HCPCS: 49082; 71250; 80053; 83690; 87040; 93005; 96365; 96366; 96375; 99285; 74178; 81003; 83605; 83735; 84484; 85025; 85610; 87070; 87205; 89051; 93010; 99284; J1170; J2004; J2405; J3475; J3490

== ENCOUNTER 2024-05-30 16:55 | Outpatient (CLI) | payer MEDICARE, OTHER, SELFPAY ==
--- NOTE | 2024-05-30 14:26 | DI.US_ITS ---
Exam(s) US LOWER EXTREMITY VENOUS LT EXAM: US LOWER EXTREMITY VENOUS LT CLINICAL HISTORY: ENDOMETRIAL CANCER, LEG CRAMPING , OTHER SPEC SOFT TISSUE DISORDERS M79.389. TECHNIQUE: Lower extremity venous ultrasound performed using grayscale, color-flow, and spectral Do ppler analysis. COMPARISON: No exams were available for comparison FINDINGS: The common femoral, femoral and popliteal veins demonstrate normal compressibility, augmentation, and color Doppler. The posterior tibial veins are patent. No saphenous vein thrombosis or other superfi cial venous thrombosis is seen. No hematoma or Carson's cyst is seen. Mild lower extremity soft tiss ue edema. IMPRESSION: Mild edema. No evidence of DVT. DATA REPOSITORY:
== END 2024-05-30 17:15 ==
LOC: DI 16:55
PROVIDERS: PCP Nurse Practitioner Family; Visit Provider Nurse Practitioner Women's Health
DX: M79.89 Other specified soft tissue disorders (principal)
CPT/HCPCS: 93971

== ENCOUNTER 2024-05-30 16:55 | Outpatient (CLI) | payer MEDICARE, OTHER, SELFPAY ==
[2024-05-30 14:43] LABS: Potassium 4.5 mmol/L (3.5-5.1)
== END 2024-05-30 16:56 | disposition home or self-care (01) ==
LOC: LBO 16:55
PROVIDERS: PCP Nurse Practitioner Family; Visit Provider Nurse Practitioner Women's Health
DX: C54.1 Malignant neoplasm of endometrium (principal); R25.2 Cramp and spasm
CPT/HCPCS: 36415; 80053; 86304; 84132; 85025; 93971